=== PATIENT | female | born 1940 | race Caucasian/White ===

== ENCOUNTER 2022-01-02 13:27 | Outpatient (CLI) | payer MEDICARE, SELFPAY ==
[2022-01-02 21:36] LABS: Chloride* 100 mmol/L (96-114); Potassium* 4.7 mmol/L (3.6-5.1); Sodium* 133 mmol/L (135-149)
[2022-01-02 21:39] LABS: Carbon Dioxide* 27 mmol/L (20-32); Creatinine* 1.1 mg/dL (0.5-1.5); Estimated Glomerular Filt Rate 51 ml/min
[2022-01-02 21:40] LABS: Blood Urea Nitrogen* 18 mg/dL (7-30); Calcium* 8.9 mg/dL (8.4-10.6); Glucose* 105 mg/dL (60-115)
[2022-01-02 22:27] LABS: Vitamin B12* 374 pg/mL (243-894)
== END 2022-01-02 13:28 | disposition home or self-care (01) ==
LOC: FRMREF 13:28
PROVIDERS: PCP Physician Assistant Medical; Visit Provider Physician Assistant Medical
DX: I10 Essential (primary) hypertension (principal); D51.9 Vitamin B12 deficiency anemia, unspecified
CPT/HCPCS: 80048; 82607

== ENCOUNTER 2022-07-09 08:13 | Outpatient (CLI) | payer MEDICARE, SELFPAY | END 2022-07-09 08:14 | disposition home or self-care (01) | LOC: NFLDREF 21:38 | PROVIDERS: PCP Physician Assistant Medical; Referring Provider Physician Assistant Medical; Visit Provider Physician Assistant Medical | DX: E78.00 Pure hypercholesterolemia, unspecified (principal) | CPT/HCPCS: 80061 ==

== ENCOUNTER 2022-12-20 08:55 | Outpatient (CLI) | payer MEDICARE, SELFPAY | END 2022-12-20 08:56 | disposition home or self-care (01) | LOC: NFLDREF 12-24 15:14 | PROVIDERS: PCP Physician Assistant Medical; Referring Provider Physician Assistant Medical; Visit Provider Internal Medicine | DX: R73.03 Prediabetes (principal); D51.9 Vitamin B12 deficiency anemia, unspecified; E66.9 Obesity, unspecified; E78.5 Hyperlipidemia, unspecified; I10 Essential (primary) hypertension; E87.1 Hypo-osmolality and hyponatremia | CPT/HCPCS: 80053; 80061; 82607 ==

== ENCOUNTER 2023-11-19 07:50 | Outpatient (CLI) | payer MEDICARE, SELFPAY ==
--- OUTSIDE RECORDS SUMMARY | 2023-11-22 19:44 | XMS_ITS | Clinical Summary ---
Author Organization [facility] Address [place], [place] [address] Care Team Providers Care Marine Electrician Helper Name Role Phone Navneet Curran MD Primary Care Provider [phone] Allergies Active Allergy Reactions Criticality Noted Date Comments Adhesive Tape-Silicones Itching 08/22/2016 Uses paper tape Medications Medication Sig Dispensed Refills Start Date End Date Status lisinopril (PRINIVIL; ZESTRIL) 20 mg tablet Take 20 mg by mouth once daily. Active ASPIRIN ORAL Take 81 mg by mouth once daily. Active simvastatin (ZOCOR) 10 mg tablet Take 10 mg by mouth at bedtime. Active albuterol (PROAIR RESPICLICK) 90 mcg/actuation INHALER Inhale by mouth every 4 hours. 0 03/19/2018 Active FLUoxetine (SARAFEM) 20 mg tablet Take 1 tablet by mouth every morning. 0 03/19/2018 Active omeprazole (PRILOSEC) 40 mg Delayed-Release capsule Take 1 capsule by mouth once daily. 0 03/19/2018 Active multivitamin (MULTIPLE VITAMINS) tablet Take 1 tablet by mouth once daily. 0 03/19/2018 Active estradioL (ESTRACE) 0.1 mg/g vaginal cream 04/14/2020 Active fluticasone propion-salmeteroL (ADVAIR) 500-50 mcg/Dose diskus inhaler 04/05/2020 A ctive albuterol-ipratropium (DUONEB) (2.5-0.5 mg) in 3 mL NEBULIZATION solution 04/05/2020 Active nystatin powder (MYCOSTATIN) powder 04/05/2020 Activ e Active Problems Problem Noted Date Diagnosed Date Breast cancer in female 04/17/2020 S/P bilateral mastectomy 04/17/2020 Colitis 04/17/2020 Tubular adenoma of colon 04/17/2020 Hypercholesteremia 10/26/2012 Osteopenia of multiple sites 04/09/2012 Hypertension 03/20/2011 Personal history of colonic polyps 06/13/2010 Overview (05/02/2020): Colonoscopy 06/2010 normal repeat in 5 years Colonoscopy 04/2020 polyp, repeat in 7 years Status post cardiac surgery 04/26/2009 S/P breast lumpectomy 04/26/2009 Immunizations Name Administration Dates Next Due Influenza Virus, Unspecified 12/30/2017, 12/20/2016,12/06/2015,2014,01/31/2014,01/20/2013,03/23/2012,0 11/28/2010,12/15/2009,12/05/2008 Influenza, High-dose Inactivated 12/20/2016,11/09 Influenza, IIV3 (Age 6-35 mos) 4,01/20/2013,03/23/2012,2010,12/15/2009 Influenza, IIV3 (Age >=3 years) 01/11/2008 Influenza, IIV4 12/30/2014 Pneumococcal Poly,23-Valent (Pneumovax) 09/05/2011 Pneumococcal conj 13-Valent (Prevnar 13) 01/20/2015 Td (Age >=7 Years) 01/20/2018,01/11/2008 Tdap 01/11/2008 Zoster (Zostavax-ZVL, live) 03/27/2012 Zoster, Unspecified Formulation 03/27/2012 Family History Medical History Relation Name Comments Anesthesia Malignant Hyperthermia No Family History Anesthesia Problem No Family History Social History Tobacco Use Types Packs/Day Years Used Date Smoking Tobacco: Every Day Cigarettes 0.5 65.6 Started: [birth year]/17/1956 Smokeless Tobacco: Never Tobacco Cessation:Ready to Q uit: No; Counseling Given: Yes Alcohol Use Standard Drinks/Week Comments Not Currently 0 (1 standard drink = 0.6 oz pur e alcohol) PHQ-2 Answer Date Recorded PHQ-2 TOTAL SCORE 0 04/17/2020 Social Connections Answer Date Recorded Frequency of Communication with Friends and Fami ly Not on file 03/10/2021 Financial Resource Strain Answer Date R ecorded Difficulty of Paying Living Expenses Not on file 03/10/2021 Difficulty of Paying Living Expenses Not on file 03/10/2021 Sex and Gender Information Value Date Recorded Sex Assigned at Not on file Gender Identity Not on file Sexual Orientation Not on file Obstetrics History Last Filed Vital Signs Vital Sign Reading Time Taken Comments Blood Pressure 118/79 04/17/2020 8:37 AM PSYCH SOCIAL WORKER Pulse 99 04/17/2020 8:37 AM PSYCH SOCIAL WORKER Temperature 36.7 ??C (98 ??F) 04/17/2020 8:37 AM PSYCH SOCIAL WORKER Respiratory Rate 16 04/17/2020 8:37 AM PSYCH SOCIAL WORKER Oxygen Saturation 95% 04/17/2020 8:37 AM PSYCH SOCIAL WORKER Inhaled Oxygen Concentration - - Weight 89.6 kg (197 lb 9.6 oz) 04/17/2020 8:37 A M PSYCH SOCIAL WORKER Height 164 cm (5' 4.57) 04/17/2020 8:37 AM PSYCH SOCIAL WORKER Body Mass Index 33.32 04/17/2020 8:37 AM PSYCH SOCIAL WORKER Plan of Treatment Health Maintenance Due Date Last Done Comments RSV vaccine for adults or (1 - 1-dose 60+ series) 2002 Medicare Wellness for age 65+ 2007 Zoster (shingles) series for age 50+ (2 of 3) 05/22/2012 03/27/2012 BMI (ht and wt on same day) for age 18+ 04/17/2021 04/17/2020, 08/22/2016 Depression screening for age 12+ 04/17/2021 04/17/19 21, 04/12/2020 COVID-19 vaccine series ( season) 2023 Influenza for age 65+ 11/09/2023 12/30/2017 , 12/20/2016, 12/20/2016, Additional history exists Tetanus booster 01/21/2028 01/20/2018, 05/2007, 01/11/2008 Tdap Completed 01/11/2008 Pneumococcal series for age 65+ Completed 5, 09/05/2011 DEXA/DXA scan for age 65+ Completed 09/14/2018 Procedures Procedure Name Priority Date/Time Associated Diagnosis Comments SCAN-BONE DENSITOMETRY DEXA 09/14/2018 12:00 AM CDT from Last 3 Months or Most Recently Relevant to Health Maintenance Results * SCAN-BONE DENSITOMETRY DEXA (09/14/2018 12:00 AM CDT) Anatomical Region Laterality Modality Other Scanner OTHER from Last 3 Months or Most Recently Relevant to Health Maintenance Insurance Payer Benefit Plan / Group Subscriber ID Effective Dates Phone Address Type [employer] [id number] 2019-Present [address] [place] [address] Care Teams Marine Electrician Helper Relationship Specialty Start Date End Date Navneet Curran MD [address] [place] [id number] PCP - General Family Practice 03/19/18
== END 2023-11-19 07:51 | disposition home or self-care (01) ==
LOC: NFLDREF 11-22 19:42
PROVIDERS: PCP Internal Medicine; Referring Provider Internal Medicine; Visit Provider Internal Medicine
DX: G31.84 Mild cognitive impairment of uncertain or unknown etiology (principal); E87.1 Hypo-osmolality and hyponatremia; D51.9 Vitamin B12 deficiency anemia, unspecified; Z13.29 Encounter for screening for other suspected endocrine disorder
CPT/HCPCS: 80053; 82607; 84443

== ENCOUNTER 2023-12-01 09:19 | Outpatient (CLI) | payer MEDICARE, SELFPAY ==
--- NOTE | 2023-12-01 09:15 | CRLHL7_ITS ---
For Patients: As a result of the Century Cures Act, medical imaging exams and procedure reports are released immediately into your electronic medical record. You may view this report before your referring provider. If you have questions, please contact your health care provider. INDICATION: Mild cognitive impairment TECHNIQUE: Noncontrast Sagittal T1,Axial FSE T2, Flair, DWI images submitted. Compared to prior study from June 09, 2015 FINDINGS: Worsening qjgh-od-vyurfnaz cerebral atrophy. The ventricles, sulci and gyri are of normal size, shape and contour for age and degree of atrophy. Midline structures are centrally located. No convincing evidence of suspicious intra- or extra-axial fluid collections. Worsening mild patchy regions of increased T2 signal within the periventricular and subcortical white matter of both cerebral hemispheres. No regions of restricted diffusion. Improved right maxillary sinus mucous retention cyst or polyp. IMPRESSION: 1. No radiographic evidence of acute intracranial abnormalities. 2. Worsening waoz-iu-ybdisyav cerebral atrophy. 3. Worsening mild supratentorial white matter changes that are non-specific, but statistically most likely related to chronic small vessel ischemic disease. Dictated by Talib Diane MD @ 12/01/2023 5:13:04 PM (Electronically Signed)
--- OUTSIDE RECORDS SUMMARY | 2023-12-01 09:23 | XMS_ITS | Clinical Summary ---
Author Organization [facility] Address [place], [place] [address] Care Team Providers Care Bench Mechanic Name Role Phone Navneet Curran MD Primary Care Provider [phone] Allergies Active Allergy Reactions Criticality Noted Date [...] Comments Blood Pressure 118/79 04/17/2020 8:37 AM [employer] WORKER Pulse 99 04/17/2020 8:37 AM [employer] WORK[employer] Temperature 36.7 ??C (98 ??F) 04/17/2020 8:37 AM [employer] WORKER Respiratory Rate 16 04/17/2020 8:37 AM [employer] WORKER Oxygen Saturation 95% 04/17/2020 8:37 AM [employer] WORKER Inhaled Oxygen Concentration - - Weight 89.6 kg (197 lb 9.6 oz) 04/17/2020 8:37 A M [employer] WORK[employer] Height 164 cm (5' 4.57) 04/17/2020 8:37 AM [employer] WORK[employer] Body Mass Index 33.32 04/17/2020 8:37 AM [employer] WORKER Plan of Treatment Health Maintenance Due [...] Phone Address Type [employer] [id number] 2019-Present [address] [place] [address] Care Teams Bench Mechanic Relationship Specialty Start Date End Date Navneet Curran MD [address] [place] [id number] PCP - General Family Practice 03/19/18
== END 2023-12-01 09:20 | disposition home or self-care (01) ==
LOC: MRI 09:19
PROVIDERS: PCP Internal Medicine; Visit Provider Internal Medicine
DX: G31.84 Mild cognitive impairment of uncertain or unknown etiology (principal); G31.9 Degenerative disease of nervous system, unspecified
CPT/HCPCS: 70551

== ENCOUNTER 2023-12-23 11:16 | Inpatient (IN) | payer MEDICARE, SELFPAY ==
[2023-12-23] VITALS (23 sets, daily range): BP systolic 102–126; BP diastolic 43–93; PULSE 59–88; RESP 16–22; TEMP 36.4–37.3; O2SAT 87–94; BMI 25.5
--- NOTE | 2023-12-23 12:03 | ED_ITS ---
HPI - General Adult General Time Seen by Provider: 12:03 Date Seen: 12/23/23 Chief complaint: Weakness Stated complaint: Very weak, deteriorating fast over last 2 days Time Seen by Provider: 12/23/23 12:02 Source: patient, family, RN notes reviewed and old records reviewed Mode of arrival: wheelchair Limitations: no limitations (Patient is noted to have cognitive decline but is very responsive to questions, seems to be tracking quite well.) History of Present Illness HPI narrative: This 83yo female is brought in by family from home where she resides with her with concern of decline. She is weak and has declined eating. They note she has lost 10lbs in 6 weeks. She admits that she has no nausea or vomiting, is just not hungry. She is not experiencing any shortness of breath, no chest pain. She has COPD and continues to smoke, states that she will not quit. She may be coughing more, baseline has significant cough. No fevers noted. No diarrhea, no abdominal pain. She does have some cognitive decline and was started on Aricept on November 17 of this year. No urinary symptoms noted. Her daughter is an OB nurse here, does bring up remote history of breast cancer as well. She was weak enough that they needed a wheelchair for her today. Do feel that the last 2 days she has significantly declined. Her daughter notes she is always cold. In review of her chart, did have a normal TSH checked in November 2023. Related Data Home Medications ?Medication ?Instructions ?Recorded ?Confirmed aspirin 81 mg chewable tablet 1 tab PO DAILY 09/11/21 12/23/23 calcium 600 mg (as 1 cap PO DAILY 05/16/22 12/23/23 carbonate)-vitamin D3 10 mcg (400 unit) capsule Cogniultra 2 cap PO DAILY 11/18/23 12/23/23 clobetasol 0.05 % topical ointment 1 applic topical BID PRN 11/18/23 12/23/23 Previous Rx's ?Medication ?Instructions ?Recorded fluticasone 500 mcg-salmeterol 50 1 inh inhalation BID #60 ea 06/11/22 mcg/dose blistr powdr for inhalation nystatin 100,000 unit/gram topical 1 applic topical TID #30 grams 09/23/22 powder simvastatin 10 mg tablet 10 mg PO .Bedtime #90 tabs 03/13/23 ipratropium 0.5 mg-albuterol 3 mg 3 ml inhalation QID PRN shortness 07/28/23 (2.5 mg base)/3 mL nebulization of breath or wheezing #180 mL soln losartan 50 mg tablet 50 mg PO QDAY #90 tabs 09/26/23 omeprazole 40 mg capsule,delayed 40 mg PO DAILY #90 caps 09/26/23 release albuterol sulfate 90 mcg/actuation 2 puff inhalation Q4H PRN 10/10/23 aerosol inhaler bronchospasm #6.7 grams donepezil 5 mg tablet (Aricept) 5 mg PO QHS #90 tabs 11/18/23 Allergies Allergy/AdvReac Type Severity Reaction Status Date / Time No Known Drug Allergies Allergy Verified 12/23/23 11:48 Review of Systems Status of ROS: Reports: 6 or more systems reviewed and unremarkable except as noted in History and below [facility] Medical History History of depression ?Z86.59 - Personal history of other mental and behavioral disorders (ICD-10) History of breast cancer ?Z85.3 - Personal history of malignant neoplasm of breast (ICD-10) Surgical History History of atrial septal defect repair ?Z87.74 - Personal history of (corrected) congenital malformations of heart and circulatory system (ICD-10) 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) ?Z96.611 - Presence of right artificial shoulder joint (ICD-10) Status post bilateral mastectomy ?Z90.13 - Acquired absence of bilateral breasts and nipples (ICD-10) History of cataract removal with insertion of prosthetic lens ?Z98.49 - Cataract extraction status, unspecified eye (ICD-10) ?Z96.1 - Presence of intraocular lens (ICD-10) Family History Other Lung cancer Throat cancer Social History Narrative: cigarette smoker one half pack a day or less Smoking Status: Current some day smoker What tobacco products do you use: cigarettes Smoking packs per day: 0.25 Smoking cigarettes per day: 5.0 Do you use any of these nicotine containing products: None Second hand tobacco smoke exposure: No How often do you have a drink containing alcohol: never AUDIT-C Alcohol total score: 0 Non-prescribed substance use: denies use Little interest or pleasure in doing things: several days Feeling down, depressed, or hopeless: not at all service: No Exam Const: Vital Signs, click to edit/add: Vital Signs - 24 hr 12/23/23 11:51 12/23/23 12:42 12/23/23 12:48 Temperature 99.1 F Pulse Rate Pulse Rate [Pulse Oximeter] 88 85 Respiratory Rate 16 Blood Pressure Blood Pressure [Ri ght Upper Arm] 102/67 112/93 H Pulse Oximetry 89 88 91 Oxygen Delivery Me thod Room Air Room Air 12/23/23 12:48 12/23/23 13:00 12/23/23 13:02 Temperature Pulse Rate 79 78 86 Pulse Rate [Pulse Oximeter] Respiratory Rate 16 Blood Pressure 102/50 L Blood Pressure [Ri ght Upper Arm] Pulse Oximetry 90 87 L 89 Oxygen Delivery Me thod 12/23/23 13:03 12/23/23 13:15 12/23/23 13:30 Temperature Pulse Rate 82 75 76 Pulse Rate [Pulse Oximeter] Respiratory Rate Blood Pressure Blood Pressure [Ri ght Upper Arm] Pulse Oximetry 89 88 90 Oxygen Delivery Me thod 12/23/23 13:31 12/23/23 13:45 12/23/23 14:08 Temperature Pulse Rate 79 75 74 Pulse Rate [Pulse Oximeter] Respiratory Rate Blood Pressure 103/53 L Blood Pressure [Ri ght Upper Arm] Pulse Oximetry 90 91 92 Oxygen Delivery Me thod 12/23/23 14:11 12/23/23 14:16 12/23/23 14:30 Temperature Pulse Rate 77 74 76 Pulse Rate [Pulse Oximeter] Respiratory Rate Blood Pressure 121/43 L Blood Pressure [Ri ght Upper Arm] Pulse Oximetry 94 93 88 Oxygen Delivery Me thod 12/23/23 14:31 12/23/23 14:32 12/23/23 15:00 Temperature Pulse Rate 77 76 77 Pulse Rate [Pulse Oximeter] Respiratory Rate Blood Pressure 119/51 L Blood Pressure [Ri ght Upper Arm] Pulse Oximetry 89 89 90 Oxygen Delivery Me thod This 83-year-old female is alert, interactive, no apparent distress. She is seen exam room 2. She is wearing a stocking cap, sclera clear, conjugate gaze. Symmetrical facial function speech is normal. Do smell cigarette smoke. Neck is supple, no adenopathy. Is able to sit up, kyphosis noted, distant breath sounds, end-expiratory wheezing heard throughout no definitive crackles noted. No tachypnea. She does cough some during the interaction. Underlying heart sounds are distant, do not appreciate any murmur to the best of my ability. Normal S1-S2, no S3-S4. Abdomen is soft, nontender, nondistended, no organomegaly, no masses noted. She has no lower extremity edema. Documenting provider has reviewed patient's vital signs: yes Course Course ED Course: Will consider vast etiology for weakness, could be underlying infectious etiology developing, nursing staff appropriately collected triple viral swab. Could be such things as asymptomatic UTI causing weakness, pneumonia. She is wheezing, will give her a DuoNeb and see if that does help. Will have her on pulse oximetry, get EKG and full complement of labs. No fever at this point and thus no blood culture will be done. It is possible her weight loss and diminis hed appetite could be side effect of her Aricept. Underlying cancerous process or recurrent breast cancer is also a possibility and will be considered. Will start with a portable chest x-ray but they understand we may need to move to advanced imaging as indicated. Reevaluation(s) Time of Reevaluation #1: 13:37 Reevaluation #1: Patient is trying to drink water so she can provide us a urinalysis sample. Did review with them that her sodium has come back at 1:27 a.m., in November was 126. Michelle her daughter notes that this is reportedly where she normally runs as far as her sodium, is hyponatremic. Have discussed the chest x-ray findings and coupled with the weight loss, do think we should proceed with chest CT imaging and given weight loss, would certainly consider taking it through the abdomen and pelvis. When he would like us to do this, will order chest abdomen pelvis with IV contrast. Will give patient a 500 mL normal saline bolus over 2 hours due to the contrast and the hyponatremia. Michelle wondered about carbon monoxide poisoning. Reviewed with Michelle that her mom's carboxyhemoglobin level will be high due to smoking. They have been using a space heater. We certainly can check this just to make sure it is not dangerously high. Time of Reevaluation #2: 15:26 Reevaluation #2: Have reviewed CT findings, we reviewed the labs. They are aware that carbon monoxide is not a concern, Michelle has been able to see lab results. I do think that there is infectious etiology developing, would recommend treatment with antibiotics and will order Rocephin and oral 500 mg azithromycin. They do check her pulse oximetry at home and she is usually in the low 90s. She has been consistently running 88-89% most recently here. Will put her on 1 L nasal cannula oxygen, did have lab add on a venous blood gas and she is not retaining carbon dioxide at this point. They feel she is too weak to go home at this point, does need some low-dose oxygen, will talk to our hospitalist next. Will also institute some prednisone for her given her COPD with lower respiratory tract infection. Consultations Consultation #1: Have called the hospitalist Dr. Echavarria. He has requested to call me back. Dr. Echavarria did come down when he was 1st available, does accept the patient. Time: 15:29 Vital Signs Vital signs: Initial Vital Signs Temperature 99.1 F 12/23/23 11:51 Temperature Source Temporal Artery Scan 12/23/23 11:51 Pulse Rate 88 12/23/23 11:51 Pulse Rhythm Regular 12/23/23 11:51 Pulse Strength 3+ Normal 12/23/23 11:51 Respiratory Rate 16 12/23/23 11:51 Blood Pressure 102/67 12/23/23 11:51 Blood Pressure Mean 78 12/23/23 11:51 Blood Pressure Position Sitting 12/23/23 11:51 Pulse Oximetry 89 12/23/23 11:51 Oxygen Delivery Method Room Air 12/23/23 11:51 Vital Signs Temperature 99.1 F 12/23/23 11:51 Pulse Rate 88 12/23/23 11:51 Respiratory Rate 16 12/23/23 11:51 Blood Pressure 102/67 12/23/23 11:51 Pulse Oximetry 89 12/23/23 11:51 Oxygen Delivery Method Room Air 12/23/23 11:51 Temperature 99.1 F 12/23/23 11:51 Pulse Rate 77 12/23/23 15:00 Respiratory Rate 16 12/23/23 13:02 Blood Pressure 119/51 L 12/23/23 14:31 Pulse Oximetry 90 12/23/23 15:00 Oxygen Delivery Method Room Air 12/23/23 12:48 Medications Administered Medications: Discontinued Medications Generic Name Dose Route Start Last Admin Trade Name Freq PRN Reason Stop Dose Admin Albuterol/Ipratropium 1 neb 12/23/23 12:15 12/23/23 12:38 Iprat-Albut 0.5-2.5 Mg/3 Ml Neb IH 12/23/23 12:16 1 neb ONCE ONE Administration Azithromycin 500 mg 12/23/23 15:26 12/23/23 15:42 Azithromycin 250 Mg Tablet PO 12/23/23 15:27 500 mg ONCE ONE Administration Sodium Chloride 250 mls @ 250 mls/hr 12/23/23 13:41 12/23/23 13:45 0.9 % Sodium Chloride 250 Ml IV 12/23/23 14:40 Infused .Q1H ONE Infusion Sodium Chloride 250 mls @ 250 mls/hr 12/23/23 13:41 12/23/23 15:08 0.9 % Sodium Chloride 250 Ml IV 12/23/23 14:40 Infused .Q1H ONE Infusion Ceftriaxone Sodium 1 gm/ 100 mls @ 200 mls/hr 12/23/23 15:26 12/23/23 15:41 Sodium Chloride IVPB 12/23/23 15:27 200 mls/hr ONCE ONE Administration Prednisone 20 mg 12/23/23 15:43 12/23/23 15:53 Prednisone 20 Mg Tablet PO 12/23/23 15:44 20 mg ONCE ONE Administration Medical Decision Making Lab Data Lab results reviewed: Yes I reviewed the patient's lab results Labs: Lab Results 12/23/23 12/23/23 12/23/23 Range/Units 12:02 12:35 13:40 WBC 10.69 (4.50-11.00) K/uL RBC 3.90 L (4.00-5.20) m/uL Hgb 12.1 (12.0-16.0) gm/dL Hct 37.2 (33.0-51.0) % MCV 95 (80-100) fL MCH 31 (26-34) pg MCHC 33 (32-36) gm/dL RDW Coeff of Sander 13.0 (11.5-15.5) % Plt Count 191 (140-440) K/uL Neut % (Auto) 83.8 H (42.0-72.0) % Lymph % (Auto) 5.9 L (20-44) % Becker % (Auto) 9.7 (0.0-11.0) % Eos % (Auto) 0.1 (0.0-7.0) % Baso % (Auto) 0.2 (0.0-3.0) % Neut # (Auto) 9.00 H (1.7-7.0) K/uL Lymph # (Auto) 0.60 L (0.90-2.90) K/uL Becker # (Auto) 1.00 H (0.00-0.90) K/UL Eos # (Auto) 0.01 (0.00-0.50) K/uL Baso # (Auto) 0.02 (0.00-0.30) K/uL Abs Immat Gran (auto) 0.03 (0.00-0.30) K/uL Imm/Tot Granulo (auto) 0.3 % VBG pH 7.408 (7.32-7.43) VBG pCO2 44 (40-50) mmHG VBG pO2 < 30.1 (25-47) mmHG VBG HCO3 28 (21-28) mmol/L Carboxyhemoglobin 3.5 (0.0-5.0) % Sodium 127 L (135-149) mmol/L Potassium 4.0 (3.6-5.1) mmol/L Chloride 95 L (96-114) mmol/L Carbon Dioxide 24 (20-32) mmol/L Anion Gap 8 (7-15) mEq/L BUN 20 (7-30) mg/dL Creatinine 1.1 (0.5-1.5) mg/dL Estimated Creat Clear 37.55 Estimated GFR 50 ml/min Glucose 100 (60-115) mg/dL Lactate 0.8 (0.5-1.9) mmol/L Calcium 9.1 (8.4-10.6) mg/dL Magnesium 1.8 (1.5-2.6) mg/dL Total Bilirubin 0.9 (0.1-1.5) mg/dL Direct Bilirubin 0.3 (0.0-0.5) mg/dL AST 30 (12-35) U/L ALT 16 (4-35) U/L Alkaline Phosphatase 82 (40-150) U/L Troponin I 0.01 (0.01-0.04) ng/mL C-Reactive Protein 6.1 H (0.5-1.0) mg/dL NT-Pro-B Natriuret Pep 964 pg/mL Total Protein 7.2 (6.0-8.3) g/dL Albumin 3.6 (3.3-5.0) g/dL Procalcitonin 0.10 (<0.50) ng/mL Urine Color (Yellow) Urine Appearance (Clear) Urine pH (5.0-8.5) Ur Specific [place] (1.000-1.030) Urine Protein (Negative) Urine Glucose (UA) (Negative) Urine Ketones (Negative) Urine Blood (Negative) Urine Nitrite (Negative) Urine Bilirubin (Negative) Urine Urobilinogen (0.2-1.0) Ur Leukocyte Esterase (Negative) SARS-CoV-2 (PCR) Negative SARS-CoV-2 (Negative) Influenza Type A (PCR) Negative PCR FLU A (Negative) Influenza Type B (PCR) Negative PCR FLU B (Negative) RSV (PCR) Negative PCR RSV (Negative) Lab Acknowledgement Test Added Test Added 12/23/23 Range/Units 16:12 WBC (4.50-11.00) K/uL RBC (4.00-5.20) m/uL Hgb (12.0-16.0) gm/dL Hct (33.0-51.0) % MCV (80-100) fL MCH (26-34) pg MCHC (32-36) gm/dL RDW Coeff of Sander (11.5-15.5) % Plt Count (140-440) K/uL Neut % (Auto) (42.0-72.0) % Lymph % (Auto) (20-44) % Becker % (Auto) (0.0-11.0) % Eos % (Auto) (0.0-7.0) % Baso % (Auto) (0.0-3.0) % Neut # (Auto) (1.7-7.0) K/uL Lymph # (Auto) (0.90-2.90) K/uL Becker # (Auto) (0.00-0.90) K/UL Eos # (Auto) (0.00-0.50) K/uL Baso # (Auto) (0.00-0.30) K/uL Abs Immat Gran (auto) (0.00-0.30) K/uL Imm/Tot Granulo (auto) % VBG pH (7.32-7.43) VBG pCO2 (40-50) mmHG VBG pO2 (25-47) mmHG VBG HCO3 (21-28) mmol/L Carboxyhemoglobin (0.0-5.0) % Sodium (135-149) mmol/L Potassium (3.6-5.1) mmol/L Chloride (96-114) mmol/L Carbon Dioxide (20-32) mmol/L Anion Gap (7-15) mEq/L BUN (7-30) mg/dL Creatinine (0.5-1.5) mg/dL Estimated Creat Clear Estimated GFR ml/min Glucose (60-115) mg/dL Lactate (0.5-1.9) mmol/L Calcium (8.4-10.6) mg/dL Magnesium (1.5-2.6) mg/dL Total Bilirubin (0.1-1.5) mg/dL Direct Bilirubin (0.0-0.5) mg/dL AST (12-35) U/L ALT (4-35) U/L Alkaline Phosphatase (40-150) U/L Troponin I (0.01-0.04) ng/mL C-Reactive Protein (0.5-1.0) mg/dL NT-Pro-B Natriuret Pep pg/mL Total Protein (6.0-8.3) g/dL Albumin (3.3-5.0) g/dL Procalcitonin (<0.50) ng/mL Urine Color [place] A (Yellow) Urine Appearance Turbid A (Clear) Urine pH 6.0 (5.0-8.5) Ur Specific [place] 1.010 (1.000-1.030) Urine Protein Trace A (Negative) Urine Glucose (UA) Negative (Negative) Urine Ketones Negative (Negative) Urine Blood Negative (Negative) Urine Nitrite Negative (Negative) Urine Bilirubin Negative (Negative) Urine Urobilinogen 0.2 (0.2-1.0) Ur Leukocyte Esterase Negative (Negative) SARS-CoV-2 (PCR) (Negative) Influenza Type A (PCR) (Negative) Influenza Type B (PCR) (Negative) RSV (PCR) (Negative) Lab Acknowledgement Imaging Data Chest x-ray: Attestation: I have reviewed the pertinent imaging results. My impression: Do see probable effusion on the portable chest x-ray, compared to chest x-ray from 2020 does see that there was obliteration of that left costophrenic angle. Await Radiology over-read. Radiologist's impression: Patient: SHANEL JAIME Facility:?[facility] Patient ID:?[id number] Site Patient ID:?[id number] Site :?[id number] Study:?XRay-Chest Portable 1V-12/23/2023 12:41:28 PM Ordering Physician:Elias Francis Final Report: INDICATION: COPD with weakness and worsening cough COMPARISON: 09/13/2020 TECHNIQUE: Single frontal radiographic view(s) of the chest. FINDINGS: Blunting of the left costophrenic angle. Left lung base opacity. Mildly hyperexpanded lungs. Postoperative changes of median sternotomy. Similar p rominence of the bilateral perihilar pulmonary vasculature. Normal heart size. There is calcified aortic atherosclerosis. There are osseous degenerative changes. Partially imaged right shoulder arthroplasty. IMPRESSION: Blunting of the left costophrenic angle compatible with atelectasis and/or trace effusion. New left lung base opacity which may represent atelectasis or consolidation. Mildly hyperexpanded lungs. Similar prominence of the bilateral perihilar pulmonary vasculature. Dictated by Ad Milner MD @ 12/23/2023 12:46:54 PM (Electronic Signature) CT Chest/Ab/Pelvis: Attestation: I have reviewed the pertinent imaging results. Radiologist's impression: Patient: SHANEL JAIME Facility:?[facility] Patient ID:?[id number] Site Patient ID:?[id number]. Site :?[id number] Study:?CT-Chest/Abd/Pelvis WITH 77 CC ISOVUE 370-12/23/2023 2:22:32 PM Ordering Physician:Elias Francis Final Report: INDICATION: Weakness and weight loss TECHNIQUE: CT chest, abdomen and pelvis acquired with 77 cc Isovue 370 intravenous contrast. COMPARISON: Chest CT 10/27/2019 and abdomen and pelvis CT 01/11/2018 FINDINGS: CHEST: Cardiovascular structures: Thoracic aorta is normal in caliber with atherosclerotic calcification. No pericardial effusion. Moderate coronary atherosclerosis. Mediastinum and cee: Precarinal lymph nodes measure 10 millimeters. Right hilar lymph nodes measure 11 millimeters. Lungs and pleura: No pleural effusion or pneumothorax. Mild centrilobular emphy sema with some interlobular septal thickening in the subpleural regions possibly minimal fibrosis. Minimal peripheral ground-glass opacities with very slight centrilobular nodularity within both lungs. Endobronchial soft tissue within the left lower lobe with partial atelectasis and consolidation within the left lower lobe. Chest wall and axilla: No mass or adenopathy. Bones: Status post right shoulder replacement. ABDOMEN AND PELVIS: Liver: Diffusely decreased density of the liver without focal intrahepatic lesion. Gallbladder and bile ducts: Unremarkable. Pancreas: Unremarkable. Spleen: Unremarkable. Adrenal glands: Minimal nodularity of the lateral limb of the left adrenal gland measuring 6 millimeters. Kidneys: Symmetric renal enhancement without hydronephrosis. Calcifications within the kidneys which appear to be mostly vascular although there is a 2 millimeter calcification in the right kidney suggesting a nonobstructing stone. Bilateral renal cysts. GI tract: The stomach is decompressed. No dilated loops of small intestine. Vascular structures: Atherosclerosis without abdominal aortic aneurysm. Miscellaneous: Fat containing epigastric ventral hernia. Right inguinal hernia with colon extending into the hernia sac without evidence of obstruction. Pelvic Organs: Unremarkable. Bones: Degenerative disc disease lumbar spine. IMPRESSION: 1. Mild ground-glass opacities with minimal centrilobular nodularity suspicious for an infectious bronchiolitis or viral pneumonia. Additional endobronchial soft tissue density in the left lower lobe with partial atelectasis and consolidation left lower lobe. This can represent endobronchial debris in the setting of a left lower lobe pneumonia with partial atelectasis; differential includes aspiration. However, follow-up chest CT suggested in 1-2 months after treatment to ensure clearance of the bronchi and exclude an endobronchial lesion. 2. Fat containing epigastric ventral hernia and right inguinal hernia with colon in the hernia sac without evidence of obstruction. 3. Other incidental findings as detailed above. Please note that all CT scans at this facility use dose modulation, iterative reconstruction, and/or weight-based dosing when appropriate to reduce radiation dose to as low as reasonably achievable. Dictated by Joey San MD @ 12/23/2023 2:41:35 PM (Electronic Signature) ECG Data Attestation: I personally reviewed and interpreted this ECG as follows: (Normal sinus rhythm, 75 beats per minute. Incomplete right bundle branch block. No active ischemia or infarct.) Prior ECG tracings: not available for review Discharge Plan Discharge Clinical Impression: Weakness, Hypoxia COPD (chronic obstructive pulmonary disease) Qualifiers: COPD type: COPD with acute lower respiratory infection Qualified Code(s): J44.0 - Chronic obstructive pulmonary disease with (acute) lower respiratory infection Community acquired pneumonia Qualifiers: Laterality: unspecified laterality Qualified Code(s): J18.9 - Pneumonia, unspecified organism Patient Disposition: Admitted As Observation
--- NOTE | 2023-12-23 12:09 | CRLHL7_ITS ---
For Patients: As a result of the Century Cures Act, medical imaging exams and procedure reports are released immediately into your electronic medical record. You may view this report before your referring provider. If you have questions, please contact your health care provider. INDICATION: COPD with weakness and worsening cough COMPARISON: 09/13/2020 TECHNIQUE: Single frontal radiographic view(s) of the chest. FINDINGS: Blunting of the left costophrenic angle. Left lung base opacity. Mildly hyperexpanded lungs. Postoperative changes of median sternotomy. Similar prominence of the bilateral perihilar pulmonary vasculature. Normal heart size. There is calcified aortic atherosclerosis. There are osseous degenerative changes. Partially imaged right shoulder arthroplasty. IMPRESSION: Blunting of the left costophrenic angle compatible with atelectasis and/or trace effusion. New left lung base opacity which may represent atelectasis or consolidation. Mildly hyperexpanded lungs. Similar prominence of the bilateral perihilar pulmonary vasculature. Dictated by Ad Milner MD @ 12/23/2023 12:46:54 PM (Electronically Signed)
--- OUTSIDE RECORDS SUMMARY | 2023-12-23 12:15 | XMS_ITS | Clinical Summary ---
Author Organization [facility] Address [place], [place] [address] Care Team Providers Care Pickling Solution Maker Name Role Phone Navneet Curran MD Primary Care Provider [phone] Allergies Active Allergy Reactions Criticality Noted Date [...] Date Smoking Tobacco: Every Day Cigarettes 0.5 65.7 Started: 04/17/1956 Smokeless Tobacco: Never Tobacco Cessation:Ready [...] Comments Blood Pressure 118/79 04/17/2020 8:37 AM [employer] [employer] Pulse 99 04/17/2020 8:37 AM [employer] Temperature 36.7 ??C (98 ??F) 04/17/2020 8:37 AM [employer] Respiratory Rate 16 04/17/2020 8:37 AM [employer] [employer] Oxygen Saturation 95% 04/17/2020 8:37 AM [employer] Inhaled Oxygen Concentration - - Weight 89.6 kg (197 lb 9.6 oz) 04/17/2020 8:37 A M [employer] Height 164 cm (5' 4.57) 04/17/2020 8:37 AM [employer] Body Mass Index 33.32 04/17/2020 8:37 AM [employer] [employer] Plan of Treatment Health Maintenance Due Date Last Done Comments Medicare Wellness for age 65+ 2007 Zoster (shingles) series for age 50+ (2 of 3) 05/22/2012 03/27/2012 RSV vaccine for adults or (1 - 1-dose 75+ series) 2017 BMI (ht and wt on same day) [...] Phone Address Type [employer] [id number] 2019-Present [address] [place] [address] Care Teams Pickling Solution Maker Relationship Specialty Start Date End Date Navneet Curran MD [address] [place] [id number] PCP - General Family Practice 03/19/18
[2023-12-23] MEDS: IPRAT-ALBUT 0.5-2.5 MG/3 ML NEB 1 NEB IH ×2 (12:38→19:41)
[2023-12-23 12:39] LABS: Lactate* 0.8 mmol/L (0.5-1.9)
[2023-12-23 12:43] LABS: Basophils Absolute Auto 0.02 K/uL (0.00-0.30); Basophils Percent Auto 0.2 % (0.0-3.0); Eosinophils Absolute Auto 0.01 K/uL (0.00-0.50); Eosinophils Percent Auto 0.1 % (0.0-7.0); Hematocrit 37.2 % (33.0-51.0); Hemoglobin* 12.1 gm/dL (12.0-16.0); Immature Granulocytes Abs Auto 0.03 K/uL (0.00-0.30); Immature Granulocytes Pct Auto 0.3 %; Lymphocytes Percent Auto 5.9 % (20-44); Mean Corpuscular HGB Conc 33 gm/dL (32-36); Mean Corpuscular Hemoglobin 31 pg (26-34); Mean Corpuscular Volume 95 fL (80-100); Monocytes Percent Auto 9.7 % (0.0-11.0); Neutrophils Percent Auto 83.8 % (42.0-72.0); Platelet Count* 191 K/uL (140-440); White Blood Count* 10.69 K/uL (4.50-11.00)
[2023-12-23 12:44] LABS: PCR FLU A Negative PCR FLU A (Negative); PCR FLU B Negative PCR FLU B (Negative); PCR RSV Negative PCR RSV (Negative); SARS PCR* Negative SARS-CoV-2 (Negative)
[2023-12-23 12:46] LABS: Slide Review Reflex No
[2023-12-23 13:03] LABS: Albumin* 3.6 g/dL (3.3-5.0); Chloride* 95 mmol/L (96-114)
[2023-12-23 13:04] LABS: Sodium* 127 mmol/L (135-149)
[2023-12-23 13:06] LABS: Creatinine* 1.1 mg/dL (0.5-1.5); Est. Creatinine Clearance* 37.55; Estimated Glomerular Filt Rate 50 ml/min
[2023-12-23 13:07] LABS: Alanine Aminotransferase* 16 U/L (4-35); Alkaline Phosphatase* 82 U/L (40-150); Anion Gap 8 mEq/L (7-15); Aspartate Amino Transferase* 30 U/L (12-35); Bilirubin Direct* 0.3 mg/dL (0.0-0.5); Bilirubin Total* 0.9 mg/dL (0.1-1.5); Blood Urea Nitrogen* 20 mg/dL (7-30); Calcium* 9.1 mg/dL (8.4-10.6); Carbon Dioxide* 24 mmol/L (20-32); Glucose* 100 mg/dL (60-115); Magnesium* 1.8 mg/dL (1.5-2.6); Total Protein* 7.2 g/dL (6.0-8.3)
[2023-12-23 13:10] LABS: C Reactive Protein* 6.1 mg/dL (0.5-1.0)
[2023-12-23 13:19] LABS: Troponin I* 0.01 ng/mL (0.01-0.04)
[2023-12-23 13:26] LABS: NT Pro B Type NatriureticPept* 964 pg/mL
--- NOTE | 2023-12-23 13:41 | CRLHL7_ITS ---
For Patients: As a result of the Century Cures Act, medical imaging exams and procedure reports are released immediately into your electronic medical record. You may view this report before your referring provider. If you have questions, please contact your health care provider. INDICATION: Weakness and weight loss TECHNIQUE: CT chest, abdomen and pelvis acquired with 77 cc Isovue 370 intravenous contrast. COMPARISON: Chest CT 10/27/2019 and abdomen and pelvis CT 01/11/2018 FINDINGS: CHEST: Cardiovascular structures: Thoracic aorta is normal in caliber with atherosclerotic calcification. No pericardial effusion. Moderate coronary atherosclerosis. Mediastinum and cee: Precarinal lymph nodes measure 10 millimeters. Right hilar lymph nodes measure 11 millimeters. Lungs and pleura: No pleural effusion or pneumothorax. Mild centrilobular emphysema with some interlobular septal thickening in the subpleural regions possibly minimal fibrosis. Minimal peripheral ground-glass opacities with very slight centrilobular nodularity within both lungs. Endobronchial soft tissue within the left lower lobe with partial atelectasis and consolidation within the left lower lobe. Chest wall and axilla: No mass or adenopathy. Bones: Status post right shoulder replacement. ABDOMEN AND PELVIS: Liver: Diffusely decreased density of the liver without focal intrahepatic lesion. Gallbladder and bile ducts: Unremarkable. Pancreas: Unremarkable. Spleen: Unremarkable. Adrenal glands: Minimal nodularity of the lateral limb of the left adrenal gland measuring 6 millimeters. Kidneys: Symmetric renal enhancement without hydronephrosis. Calcifications within the kidneys which appear to be mostly vascular although there is a 2 millimeter calcification in the right kidney suggesting a nonobstructing stone. Bilateral renal cysts. GI tract: The stomach is decompressed. No dilated loops of small intestine. Vascular structures: Atherosclerosis without abdominal aortic aneurysm. Miscellaneous: Fat containing epigastric ventral hernia. Right inguinal hernia with colon extending into the hernia sac without evidence of obstruction. Pelvic Organs: Unremarkable. Bones: Degenerative disc disease lumbar spine. IMPRESSION: 1. Mild ground-glass opacities with minimal centrilobular nodularity suspicious for an infectious bronchiolitis or viral pneumonia. Additional endobronchial soft tissue density in the left lower lobe with partial atelectasis and consolidation left lower lobe. This can represent endobronchial debris in the setting of a left lower lobe pneumonia with partial atelectasis; differential includes aspiration. However, follow-up chest CT suggested in 1-2 months after treatment to ensure clearance of the bronchi and exclude an endobronchial lesion. 2. Fat containing epigastric ventral hernia and right inguinal hernia with colon in the hernia sac without evidence of obstruction. 3. Other incidental findings as detailed above. Please note that all CT scans at this facility use dose modulation, iterative reconstruction, and/or weight-based dosing when appropriate to reduce radiation dose to as low as reasonably achievable. Dictated by Joey San MD @ 12/23/2023 2:41:35 PM (Electronically Signed)
[2023-12-23] MEDS: 0.9 % SODIUM CHLORIDE 250 ml 250 ML IV ×2 (13:45)
[2023-12-23 13:50] LABS: Carboxyhemoglobin* 3.5 % (0.0-5.0)
[2023-12-23 15:09] LABS: HCO3 VBG 28 mmol/L (21-28); PCO2 VBG 44 mmHG (40-50); PO2 VBG < 30.1 mmHG (25-47); pH VBG 7.408 (7.32-7.43)
[2023-12-23] MEDS: cefTRIAXone 1 GM in 0.9 % SODIUM CHLORIDE Mini-bag 100 ML IVPB (15:41)
[2023-12-23] MEDS: AZITHROMYCIN 250 MG TABLET 500 MG PO (15:42)
[2023-12-23] MEDS: predniSONE 20 MG TABLET PO (15:53)
[2023-12-23 16:23] LABS: Appearance Urine Turbid (Clear); Bilirubin Urine Negative (Negative); Color Urine Orange (Yellow); Glucose Urine Negative (Negative); Ketones Urine Negative (Negative)
[2023-12-23 16:24] LABS: Blood Urine Negative (Negative); Leukocyte Esterase Urine Negative (Negative); Nitrite Urine Negative (Negative); Protein Urine Trace (Negative); Urobilinogen Urine 0.2 (0.2-1.0)
[2023-12-23 16:36] LABS: Fine Granular Casts Urine Few; Squamous Epithelial Cell Urine Few (None-Few)
[2023-12-23] MEDS: predniSONE 10 MG TABLET 20 MG PO (18:18)
--- NOTE | 2023-12-23 19:31 | PM.IMHP1 ---
Hospitalist- H&P: HPI History of Present Illness Date Seen: 12/23/23 Chief complaint: Very weak, deteriorating fast over last 2 days Narrative: Mia Miles is a 83 year old female with COPD and dementia admitted through the emergency department with acute on chronic dyspnea and weakness. Over the past few weeks the patient has had some decline in her overall health status. She has been losing weight in eating poorly she has been getting weaker. This was a very gradual process until the last 1-2 days when she has acutely gotten profoundly weak and dyspneic. She has known COPD and continues to smoke. She is not on home oxygen and O2 sats are typically in the low 90s at home. In the last day or 2 she has been more hypoxic. She has lost 9 lb in the last 5 weeks. Reports no abdominal pain nausea or vomiting. She has had some loose stools in the last couple days She reports just having no appetite. She has a chronic nonproductive cough. No chest pain. 1 month ago she was evaluated in clinic for memory loss. She was started on Aricept. MRI of the brain was obtained showing worsening cerebral atrophy and small-vessel ischemic changes. This was compared to 2016. Review of Systems Narrative: She has had decline over the last several weeks in her appetite, strength and energy. In the last 2 days acutely worse with dyspnea and profound weakness. 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 cigarette smoker one half pack a day or less Code status is DNR DNI. Daughters are healthcare power of document review attorney What is your current living situation?: I presently have a place to live Problems where you live: no known problems Problems where you live details: N/A In the past 12 months, utilities in danger of being shut off: no In past 12 months, lack of transportation kept you from medical appts, meetings, work, or getting things needed for daily living: no In the past 12 mos, have been you worried that your food would run out before you had money to buy more?: never true In the past 12 mos, the food you bought just didn't last and you didn't have money to buy more?: never true Highest level of school completed/degree received: GED or equivalent Smoking Status: Current some day smoker What tobacco products do you use: cigarettes Smoking packs per day: 0.25 Smoking cigarettes per day: 5.0 Do you use any of these nicotine containing products: None Second hand tobacco smoke exposure: Yes How often do you have a drink containing alcohol: never AUDIT-C Alcohol total score: 0 Non-prescribed substance use: denies use Caffeine: Yes (4 cups coffee daily and one soda) How often does anyone, including family, friends and others, physically hurt you: never How often does anyone, including family, friends and others, insult or talk down to you: never How often does anyone, including family, friends and others, threaten you with harm: never How often does anyone, including family, friends and others, scream or curse at you: never Little interest or pleasure in doing things: several days Feeling down, depressed, or hopeless: not at all service: No Meds Home Medications and Allergies Home Medications ?Medication ?Instructions ?Recorded ?Confirmed ?Type aspirin 81 mg chewable tablet 1 tab PO DAILY 09/11/21 12/23/23 History calcium 600 mg (as 1 cap PO DAILY 05/16/22 12/23/23 History carbonate)-vitamin D3 10 mcg (400 unit) capsule Cogniultra 2 cap PO DAILY 11/18/23 12/23/23 History ipratropium 0.5 mg-albuterol 3 mg 3 ml inhalation QID shortness of 12/23/23 12/23/23 History (2.5 mg base)/3 mL nebulization breath or wheezing soln nystatin 100,000 unit/gram topical 1 applic topical TID PRN 12/23/23 12/23/23 History powder Allergies Allergy/AdvReac Type Severity Reaction Status Date / Time No Known Drug Allergies Allergy Verified 12/23/23 11:48 Exam Narrative: Exam Narrative: She is alert and appears to be breathing fairly comfortably with supplemental oxygen. She is oriented to her circumstances but unable to explain much about her medical history or anything about her medications. Head is without trauma. Eyes normal. Oropharynx with dry mucous membranes. Neck is supple without mass or adenopathy. Respirations with diminished breath sounds throughout. Occasional basilar wheezing and basilar crackles noted bilaterally. No consolidation. Cardiovascular: S1, S2, regular rate and rhythm. Abdomen: Bowel sounds active. Abdomen is soft without tenderness or mass. Extremities without significant edema. She has diminished but intact pedal pulses. Const: Vital Signs, click to edit/add: Vital Signs - 24 hr 12/23/23 11:51 12/23/23 12:42 12/23/23 12:48 Temperature 99.1 F Pulse Rate Pulse Rate [Pulse Oximeter] 88 85 Respiratory Rate 16 Blood Pressure Blood Pressure [Le ft Arm] Blood Pressure [Ri ght Upper Arm] 102/67 112/93 H Pulse Oximetry 89 88 91 Oxygen Delivery Me thod Room Air Room Air Oxygen Flow Rate 12/23/23 12:48 12/23/23 13:00 12/23/23 13:02 Temperature Pulse Rate 79 78 86 Pulse Rate [Pulse Oximeter] Respiratory Rate 16 Blood Pressure 102/50 L Blood Pressure [Le ft Arm] Blood Pressure [Ri ght Upper Arm] Pulse Oximetry 90 87 L 89 Oxygen Delivery Me thod Oxygen Flow Rate 12/23/23 13:03 12/23/23 13:15 12/23/23 13:30 Temperature Pulse Rate 82 75 76 Pulse Rate [Pulse Oximeter] Respiratory Rate Blood Pressure Blood Pressure [Le ft Arm] Blood Pressure [Ri ght Upper Arm] Pulse Oximetry 89 88 90 Oxygen Delivery Me thod Oxygen Flow Rate 12/23/23 13:31 12/23/23 13:45 12/23/23 14:08 Temperature Pulse Rate 79 75 74 Pulse Rate [Pulse Oximeter] Respiratory Rate Blood Pressure 103/53 L Blood Pressure [Le ft Arm] Blood Pressure [Ri ght Upper Arm] Pulse Oximetry 90 91 92 Oxygen Delivery Me thod Oxygen Flow Rate 12/23/23 14:11 12/23/23 14:16 12/23/23 14:30 Temperature Pulse Rate 77 74 76 Pulse Rate [Pulse Oximeter] Respiratory Rate Blood Pressure 121/43 L Blood Pressure [Le ft Arm] Blood Pressure [Ri ght Upper Arm] Pulse Oximetry 94 93 88 Oxygen Delivery Me thod Oxygen Flow Rate 12/23/23 14:31 12/23/23 14:32 12/23/23 15:00 Temperature Pulse Rate 77 76 77 Pulse Rate [Pulse Oximeter] Respiratory Rate Blood Pressure 119/51 L Blood Pressure [Le ft Arm] Blood Pressure [Ri ght Upper Arm] Pulse Oximetry 89 89 90 Oxygen Delivery Me thod Oxygen Flow Rate 12/23/23 15:26 12/23/23 17:19 12/23/23 18:22 Temperature 98 F Pulse Rate Pulse Rate [Pulse Oximeter] 68 Respiratory Rate 20 22 Blood Pressure Blood Pressure [Le ft Arm] 126/59 L Blood Pressure [Ri ght Upper Arm] Pulse Oximetry 91 93 89 Oxygen Delivery Me thod Nasal Cannula Nasal Cannula Nasal Cannula Oxygen Flow Rate 1 1 1.5 Documenting provider has reviewed patient's vital signs: yes Hospitalist - H&P: Result Labs Labs: Short CBC 12/23/23 Range/Units 12:35 WBC 10.69 (4.50-11.00) K/uL Hgb 12.1 (12.0-16.0) gm/dL Hct 37.2 (33.0-51.0) % Plt Count 191 (140-440) K/uL BMP 12/23/23 12:35 Sodium 127 L Potassium 4.0 Chloride 95 L Carbon Dioxide 24 BUN 20 Creatinine 1.1 Glucose 100 Calcium 9.1 Cardiac Enzymes 12/23/23 Range/Units 12:35 Troponin I 0.01 (0.01-0.04) ng/mL Liver Function 12/23/23 Range/Units 12:35 Total Bilirubin 0.9 (0.1-1.5) mg/dL Direct Bilirubin 0.3 (0.0-0.5) mg/dL AST 30 (12-35) U/L ALT 16 (4-35) U/L Alkaline Phosphatase 82 (40-150) U/L Albumin 3.6 (3.3-5.0) g/dL Urine 12/23/23 Range/Units 16:12 Urine Color [place] A (Yellow) Urine Appearance Turbid A (Clear) Urine pH 6.0 (5.0-8.5) Ur Specific [place] 1.010 (1.000-1.030) Urine Protein Trace A (Negative) Urine Glucose (UA) Negative (Negative) Imaging CT Chest/Ab/Pelvis: Radiologist's impression: INDICATION: Weakness and weight loss TECHNIQUE: CT chest, abdomen and pelvis acquired with 77 cc Isovue 370 intravenous contrast. COMPARISON: Chest CT 10/27/2019 and abdomen and pelvis CT 01/11/2018 FINDINGS: CHEST: Cardiovascular structures: Thoracic aorta is normal in caliber with atherosclerotic calcification. No pericardial effusion. Moderate coronary atherosclerosis. Mediastinum and cee: Precarinal lymph nodes measure 10 millimeters. Right hilar lymph nodes measure 11 millimeters. Lungs and pleura: No pleural effusion or pneumothorax. Mild centrilobular emphysema with some interlobular septal thickening in the subpleural regions possibly minimal fibrosis. Minimal peripheral ground-glass opacities with very slight centrilobular nodularity within both lungs. Endobronchial soft tissue within the left lower lobe with partial atelectasis and consolidation within the left lower lobe. Chest wall and axilla: No mass or adenopathy. Bones: Status post right shoulder replacement. ABDOMEN AND PELVIS: Liver: Diffusely decreased density of the liver without focal intrahepatic lesion. Gallbladder and bile ducts: Unremarkable. Pancreas: Unremarkable. Spleen: Unremarkable. Adrenal glands: Minimal nodularity of the lateral limb of the left adrenal gland measuring 6 millimeters. Kidneys: Symmetric renal enhancement without hydronephrosis. Calcifications within the kidneys which appear to be mostly vascular although there is a 2 millimeter calcification in the right kidney suggesting a nonobstructing stone. Bilateral renal cysts. GI tract: The stomach is decompressed. No dilated loops of small intestine. Vascular structures: Atherosclerosis without abdominal aortic aneurysm. Miscellaneous: Fat containing epigastric ventral hernia. Right inguinal hernia with colon extending into the hernia sac without evidence of obstruction. Pelvic Organs: Unremarkable. Bones: Degenerative disc disease lumbar spine. IMPRESSION: 1. Mild ground-glass opacities with minimal centrilobular nodularity suspicious for an infectious bronchiolitis or viral pneumonia. Additional endobronchial soft tissue density in the left lower lobe with partial atelectasis and consolidation left lower lobe. This can represent endobronchial debris in the setting of a left lower lobe pneumonia with partial atelectasis; differential includes aspiration. However, follow-up chest CT suggested in 1-2 months after treatment to ensure clearance of the bronchi and exclude an endobronchial lesion. 2. Fat containing epigastric ventral hernia and right inguinal hernia with colon in the hernia sac without evidence of obstruction. 3. Other incidental findings as detailed above. Assessment and Plan Assessment and plan (1) Community acquired pneumonia: Problem comment: Clinically this appears to be the cause of her acute weakness and acute hypoxia. Status: Acute (2) Hypoxia: Problem comment: Hypoxic respiratory failure primarily due to pneumonia Status: Acute (3) COPD (chronic obstructive pulmonary disease): Problem comment: COPD is contributing to her hypoxic respiratory failure but probably not the primary cause. Continue nebulizers and prednisone. Status: Acute (4) Weakness: Problem comment: Chronic weakness due to weight loss, deconditioning. Acute weakness due to pneumonia Status: Acute (5) Mild cognitive impairment: Problem comment: Aricept started 12/01. Due to poor appetite and weight loss will stop Aricept for now. Status: Acute (6) Chronic hyponatremia: Problem comment: Stop losartan. Monitor. May be due to chronic lung disease Status: Acute (7) Essential hypertension: Problem comment: On losartan. Blood pressure is now low normal range so will stop losartan Status: Acute (8) Weight loss: Problem comment: Her 9 lb weight loss in the last 5 weeks is concerning. Cause for this is uncertain. Status: Acute Plan She is admitted the hospital for management of hypoxic respiratory failure due to pneumonia. IV antibiotics as well as nebulizers and steroids for her acute illness. PT OT to evaluate her weakness and immobility. Nutrition consult regarding weight loss. Total Time Spent Total Time Spent: Total time spent today is 85 minutes in coordination of care discussing with patient and family ongoing evaluation management of pneumonia COPD and weight loss
[2023-12-23] MEDS: 0.9 % SODIUM CHLORIDE 1000 ml 1,000 ML 75 ML IV (19:45)
[2023-12-23] MEDS: SODIUM CHLORIDE 0.9 % (FLUSH) 10 ML SYRINGE 5 ML IVF (19:48)
[2023-12-23] MEDS: SIMVASTATIN 10 MG TABLET PO (21:07)
[2023-12-23] MEDS: ENOXAPARIN 40 MG/0.4 ML INJ SUBCUT (21:07)
[2023-12-24] VITALS (9 sets, daily range): BP systolic 87–120; BP diastolic 44–98; PULSE 56–80; RESP 20–22; TEMP 36.4–36.8; O2SAT 90–94; BMI 25.8
[2023-12-24] MEDS: IPRAT-ALBUT 0.5-2.5 MG/3 ML NEB 1 NEB IH ×4 (01:49→19:51)
[2023-12-24 06:21] LABS: HCO3 VBG 23 mmol/L (21-28); PCO2 VBG 37 mmHG (40-50); PO2 VBG 47.7 mmHG (25-47); pH VBG 7.408 (7.32-7.43)
[2023-12-24 06:26] LABS: Hematocrit 33.3 % (33.0-51.0); Hemoglobin* 10.9 gm/dL (12.0-16.0); Immature Granulocytes Abs Auto 0.04 K/uL (0.00-0.30); Immature Granulocytes Pct Auto 0.5 %; Lymphocytes Percent Auto 6.6 % (20-44); Mean Corpuscular HGB Conc 33 gm/dL (32-36); Mean Corpuscular Hemoglobin 31 pg (26-34); Mean Corpuscular Volume 94 fL (80-100); Monocytes Percent Auto 4.5 % (0.0-11.0); Neutrophils Percent Auto 88.4 % (42.0-72.0); Platelet Count* 177 K/uL (140-440); RDW Coefficient of Variation % 13.1 % (11.5-15.5); Red Blood Count 3.53 m/uL (4.00-5.20)
[2023-12-24 06:29] LABS: Slide Review Reflex No
[2023-12-24] MEDS: OMEPRAZOLE 20 MG CAPSULE DR 40 MG PO (06:29)
[2023-12-24 06:46] LABS: Chloride* 99 mmol/L (96-114); Sodium* 128 mmol/L (135-149)
[2023-12-24 06:49] LABS: Creatinine* 0.8 mg/dL (0.5-1.5); Estimated Glomerular Filt Rate 74 ml/min
[2023-12-24 06:50] LABS: Anion Gap 8 mEq/L (7-15); Blood Urea Nitrogen* 17 mg/dL (7-30); Calcium* 8.4 mg/dL (8.4-10.6); Carbon Dioxide* 21 mmol/L (20-32); Glucose* 116 mg/dL (60-115)
[2023-12-24 06:52] LABS: C Reactive Protein* 5.5 mg/dL (0.5-1.0)
--- NOTE | 2023-12-24 07:40 | PC.NURSE ---
End of shift note [id number]: Pt alert & oriented x 4. Pt has been on 1.5-2 LPM oxygen via NC throughout the shift to maintain sats >90% per order in place. Staff have been encouraging po intake though pt noted to have poor po intake. Neb treatments administered per orders. Pt has been afebrile throughout the shift. She was noted to have inspiratory wheezing and fine crackles with moist coarse intermittent cough noted. Bed/chair alarm on for safety and call light within reach. Pt on tele with NSR with rare PVC noted. IV to L AC patent most of shift though started leaking just before 0630. IV was then removed. Wort Extractor and chargemaster specialist attempted three new IV starts with no success. product blending supervisor updated and new IV placed by home housekeeper. Pt has restricted extremity to R arm. Pt continent of bladder using bedside commode and transferred well with SBA using gait belt.
[2023-12-24] MEDS: ASPIRIN 81 MG TAB.CHEW PO (08:51)
[2023-12-24] MEDS: predniSONE 20 MG TABLET 40 MG PO (08:52)
[2023-12-24] MEDS: AZITHROMYCIN 250 MG TABLET PO (08:52)
[2023-12-24] MEDS: cefTRIAXone 1 GM in 0.9 % SODIUM CHLORIDE Mini-bag 100 ML IVPB (08:53)
[2023-12-24] MEDS: 0.9 % SODIUM CHLORIDE 500 ML 500 ML IV (12:40)
--- NOTE | 2023-12-24 13:14 | PM.IMPN1 ---
Progress Note: A&P Assessment and plan (1) Community acquired pneumonia: Problem details: - Clinically this appears to be the cause of her acute weakness and acute hypoxia. - IV ceftriaxone and oral azithromycin Status: Acute (2) Hypoxia: Problem details: - Hypoxic respiratory failure primarily due to pneumonia - continues to require oxygen supplementation at 2 liters/minute via nasal cannula - underlying COPD with history of smoking Status: Acute (3) COPD (chronic obstructive pulmonary disease): Problem details: - COPD is contributing to her hypoxic respiratory failure but probably not the primary cause. Continue nebulizers and prednisone. - continue with current treatment intervention efforts Status: Acute (4) Weakness: Problem details: - Chronic weakness due to weight loss, deconditioning. Acute weakness due to pneumonia - PT and OT to consult and assist with assessment and recommendations Status: Acute (5) Mild cognitive impairment: Problem details: - Aricept started 12/01. Due to poor appetite and weight loss will stop Aricept for now. - longstanding progression of cognitive impairment and functional decline suggest underlying Alzheimer's type dementia verses vascular dementia Status: Acute (6) Chronic hyponatremia: Problem details: - Stop losartan. Monitor. May be due to chronic lung disease plus oral hydration efforts Status: Acute (7) Essential hypertension: Problem details: - On losartan. Blood pressure is now low normal range so will stop losartan Status: Acute (8) Weight loss: Problem details: - Her 9 lb weight loss in the last 5 weeks is concerning. Cause for this is uncertain. Status: Acute Plan 1. Reviewed impression with patient and daughters 2. Reviewed recommendations with patient and daughters 3. Answered their questions 4. Continue with supportive efforts 5. They are agreeable with above stated plans and recommendations Time Spent With Patient Total time spent: 45 minutes Subjective Date Seen: 12/24/23 Interval history: Hospital day 2. History of present illness on admission: ?Mia Miles is a 83 year old female with COPD and dementia admitted through the emergency department with acute on chronic dyspnea and weakness. Over the past few weeks the patient has had some decline in her overall health status. She has been losing weight in eating poorly she has been getting weaker. This was a very gradual process until the last 1-2 days when she has acutely gotten profoundly weak and dyspneic. She has known COPD and continues to smoke. She is not on home oxygen and O2 sats are typically in the low 90s at home. In the last day or 2 she has been more hypoxic. She has lost 9 lb in the last 5 weeks. Reports no abdominal pain nausea or vomiting. She has had some loose stools in the last couple days She reports just having no appetite. She has a chronic nonproductive cough. No chest pain. ?1 month ago she was evaluated in clinic for memory loss. She was started on Aricept. MRI of the brain was obtained showing worsening cerebral atrophy and small-vessel ischemic changes. This was compared to 2016. Patient states she feels better today. Not as weak. Still weaker than usual. Still requiring oxygen support to maintain resting room air oxygen saturations 88% or higher. Does not ordinarily utilizes oxygen at home. Denies dyspnea at rest. Acknowledges dyspnea with exertion. Chronic cough. No chest heaviness, pressure, tightness, or pain. Denies lightheadedness. Denies syncope. Acknowledges trying to drink a lot of fluids to maintain her hydration. Denies blood loss. Confers a lot with her daughters when I speak with her and ask her questions. Exam Narrative: Exam Narrative: I examine her in her hospital room. Appears comfortable sitting at bedside in recliner chair. Vision and hearing are adequate. Alert and oriented to self, place, not so much to time or situation. She is not sure exactly why she is here. This is not necessarily new. Bibasilar rales. Scattered rhonchi. No wheezing. No CVA tenderness to thumping. Regular heart rhythm. Normal S1-S2. Soft systolic murmur. PMI not laterally displaced. Abdomen with active bowel sounds, soft, nontender. No edema. No focal motor neurologic deficits. Const: Vital Signs, click to edit/add: Vital Signs - 24 hr 12/23/23 13:15 12/23/23 13:30 12/23/23 13:31 Temperature Pulse Rate 75 76 79 Pulse Rate [Pulse Oximeter] Respiratory Rate Blood Pressure 103/53 L Blood Pressure [Le ft Arm] Pulse Oximetry 88 90 90 Oxygen Delivery Me thod Oxygen Flow Rate 12/23/23 13:45 12/23/23 14:08 12/23/23 14:11 Temperature Pulse Rate 75 74 77 Pulse Rate [Pulse Oximeter] Respiratory Rate Blood Pressure 121/43 L Blood Pressure [Le ft Arm] Pulse Oximetry 91 92 94 Oxygen Delivery Me thod Oxygen Flow Rate 12/23/23 14:16 12/23/23 14:30 12/23/23 14:31 Temperature Pulse Rate 74 76 77 Pulse Rate [Pulse Oximeter] Respiratory Rate Blood Pressure 119/51 L Blood Pressure [Le ft Arm] Pulse Oximetry 93 88 89 Oxygen Delivery Me thod Oxygen Flow Rate 12/23/23 14:32 12/23/23 15:00 12/23/23 15:26 Temperature Pulse Rate 76 77 Pulse Rate [Pulse Oximeter] Respiratory Rate Blood Pressure Blood Pressure [Le ft Arm] Pulse Oximetry 89 90 91 Oxygen Delivery Me thod Nasal Cannula Oxygen Flow Rate 1 12/23/23 17:19 12/23/23 18:00 12/23/23 18:22 Temperature 98 F Pulse Rate Pulse Rate [Pulse Oximeter] 68 Respiratory Rate 20 22 22 Blood Pressure Blood Pressure [Le ft Arm] 126/59 L Pulse Oximetry 93 89 89 Oxygen Delivery Me thod Nasal Cannula Nasal Cannula Nasal Cannula Oxygen Flow Rate 1 1.5 1.5 12/23/23 19:40 12/23/23 23:00 12/23/23 23:00 Temperature 97.6 F 97.6 F Pulse Rate Pulse Rate [Pulse Oximeter] 67 59 L Respiratory Rate 20 18 18 Blood Pressure Blood Pressure [Le ft Arm] 111/45 L 118/60 Pulse Oximetry 88 91 91 Oxygen Delivery Me thod Nasal Cannula Room Air Nasal Cannula Oxygen Flow Rate 1.5 1.5 12/23/23 23:00 12/24/23 00:25 12/24/23 03:16 Temperature 97.7 F Pulse Rate 60 Pulse Rate [Pulse Oximeter] 59 L 68 Respiratory Rate 18 22 Blood Pressure Blood Pressure [Le ft Arm] 112/58 L Pulse Oximetry 91 Oxygen Delivery Me thod Nasal Cannula Oxygen Flow Rate 2 12/24/23 07:00 12/24/23 08:00 12/24/23 08:00 Temperature 97.6 F Pulse Rate Pulse Rate [Pulse Oximeter] 62 80 Respiratory Rate 20 20 20 Blood Pressure Blood Pressure [Le ft Arm] 87/44 L Pulse Oximetry 90 94 Oxygen Delivery Me thod Nasal Cannula Nasal Cannula Oxygen Flow Rate 1 2 12/24/23 08:00 Temperature 97.6 F Pulse Rate Pulse Rate [Pulse Oximeter] 80 Respiratory Rate 20 Blood Pressure Blood Pressure [Le ft Arm] 120/98 H Pulse Oximetry 94 Oxygen Delivery Me thod Nasal Cannula Oxygen Flow Rate 2 Labs Labs: Laboratory Results - last 24 hr 12/23/23 12/23/23 12/23/23 12:35 13:40 16:12 WBC RBC Hgb Hct MCV MCH MCHC RDW Coeff of Sander Plt Count Neut % (Auto) Lymph % (Auto) [place] % (Auto) Eos % (Auto) Baso % (Auto) Neut # (Auto) Lymph # (Auto) [place] # (Auto) Eos # (Auto) Baso # (Auto) Abs Immat Gran (auto) Imm/Tot Granulo (auto) VBG pH 7.408 VBG pCO2 44 VBG pO2 < 30.1 VBG HCO3 28 Carboxyhemoglobin 3.5 Sodium 127 L Potassium 4.0 Chloride 95 L Carbon Dioxide 24 Anion Gap 8 BUN 20 Creatinine 1.1 Estimated Creat Clear 37.55 Estimated GFR 50 Glucose 100 Calcium 9.1 Magnesium 1.8 Total Bilirubin 0.9 Direct Bilirubin 0.3 AST 30 ALT 16 Alkaline Phosphatase 82 Troponin I 0.01 C-Reactive Protein 6.1 H NT-Pro-B Natriuret Pep 964 Total Protein 7.2 Albumin 3.6 Procalcitonin 0.10 Urine Color [place] A Urine Appearance Turbid A Urine pH 6.0 Ur Specific [place] 1.010 Urine Protein Trace A Urine Glucose (UA) Negative Urine Ketones Negative Urine Blood Negative Urine Nitrite Negative Urine Bilirubin Negative Urine Urobilinogen 0.2 Ur Leukocyte Esterase Negative Urine RBC 2-5 A Urine WBC 2-5 Ur Squamous Epith Cells Few Urine Bacteria None Fine Granular Casts Few A Lab Acknowledgement Test Added Test Added 12/24/23 06:10 WBC 7.70 RBC 3.53 L Hgb 10.9 L Hct 33.3 MCV 94 MCH 31 MCHC 33 RDW Coeff of Sander 13.1 Plt Count 177 Neut % (Auto) 88.4 H Lymph % (Auto) 6.6 L [place] % (Auto) 4.5 Eos % (Auto) 0.0 Baso % (Auto) 0.0 Neut # (Auto) 6.80 Lymph # (Auto) 0.50 L [place] # (Auto) 0.30 Eos # (Auto) 0.00 Baso # (Auto) 0.00 Abs Immat Gran (auto) 0.04 Imm/Tot Granulo (auto) 0.5 VBG pH 7.408 VBG pCO2 37 L VBG pO2 47.7 H VBG HCO3 23 Carboxyhemoglobin Sodium 128 L Potassium 4.0 Chloride 99 Carbon Dioxide 21 Anion Gap 8 BUN 17 Creatinine 0.8 Estimated Creat Clear 41.30 Estimated GFR 74 Glucose 116 H Calcium 8.4 Magnesium Total Bilirubin Direct Bilirubin AST ALT Alkaline Phosphatase Troponin I C-Reactive Protein 5.5 H NT-Pro-B Natriuret Pep Total Protein Albumin Procalcitonin Urine Color Urine Appearance Urine pH Ur Specific [place] Urine Protein Urine Glucose (UA) Urine Ketones Urine Blood Urine Nitrite Urine Bilirubin Urine Urobilinogen Ur Leukocyte Esterase Urine RBC Urine WBC Ur Squamous Epith Cells Urine Bacteria Fine Granular Casts Lab Acknowledgement
--- NOTE | 2023-12-24 13:45 | RESP.RT ---
Pt seen this afternoon. BBS decreased, clear. PT with very strong congested [employer] cough. Daughter reports it sounds better. LHL125% on 1L. Pt continues to smoke and will not be stopping. Would like to DC her without oxygen if appropriate. [place] does live [place], and is in the community at times. She says she does not get short of breath. Pt with neb machine at home, and does treatments 4x per day. She feels this is adequate, and does not wake up SOB at night. Will check for oxygen needs before DC.
[2023-12-24] MEDS: 0.9 % SODIUM CHLORIDE 250 ml 250 ML 125 ML IV (16:32)
--- NOTE | 2023-12-24 19:04 | PC.NURSE ---
Pt up with SBA to bathroom. Self describes as little appetite and reduced food intake. Ate 25-50% of each meal today. Encouraged oral intake. B/P low at lunch hour assessment. Updated DrMyra, order for bolus and orthostatic B/P, see charting. Systolic remains below 100, additional Bolus ordered and given, Systolic remains below 100, sent message to Awaiting changes in orders.
[2023-12-24] MEDS: SODIUM CHLORIDE 0.9 % (FLUSH) 10 ML SYRINGE 5 ML IVF (21:24)
[2023-12-24] MEDS: SIMVASTATIN 10 MG TABLET PO (21:24)
[2023-12-24] MEDS: ENOXAPARIN 40 MG/0.4 ML INJ SUBCUT (21:24)
[2023-12-25 01:50] VITALS: BP 104/49; PULSE 61; RESP 22; TEMP 36.6; O2SAT 92
--- NOTE | 2023-12-25 05:10 | PC.NURSE ---
Shift note: Occasional cough, some SOB with exertion. Pt is disoriented overnight to the place and situation, unable to use call light appropriately. RN provided reorientation to pt surroundings throughout the shift. Pt is afebrile, ambulates with SBA/assist of 1, furniture walking, unsteady on her feet. Partially incontinent and voiding, no c/o pain
[2023-12-25 06:11] LABS: HCO3 VBG 25 mmol/L (21-28); PCO2 VBG 41 mmHG (40-50); PO2 VBG < 30.1 mmHG (25-47); pH VBG 7.399 (7.32-7.43)
[2023-12-25 06:18] LABS: Basophils Absolute Auto 0.01 K/uL (0.00-0.30); Basophils Percent Auto 0.1 % (0.0-3.0); Hematocrit 30.6 % (33.0-51.0); Hemoglobin* 10.1 gm/dL (12.0-16.0); Immature Granulocytes Abs Auto 0.03 K/uL (0.00-0.30); Immature Granulocytes Pct Auto 0.3 %; Lymphocytes Percent Auto 11.3 % (20-44); Mean Corpuscular HGB Conc 33 gm/dL (32-36); Mean Corpuscular Hemoglobin 31 pg (26-34); Mean Corpuscular Volume 94 fL (80-100); Monocytes Percent Auto 6.6 % (0.0-11.0); Neutrophils Percent Auto 81.7 % (42.0-72.0); Platelet Count* 185 K/uL (140-440); Red Blood Count 3.24 m/uL (4.00-5.20); White Blood Count* 10.04 K/uL (4.50-11.00)
[2023-12-25 06:41] LABS: Slide Review Reflex No
[2023-12-25 06:47] LABS: Chloride* 98 mmol/L (96-114)
[2023-12-25 06:48] LABS: Sodium* 126 mmol/L (135-149)
[2023-12-25 06:50] LABS: Creatinine* 0.9 mg/dL (0.5-1.5); Estimated Glomerular Filt Rate 64 ml/min
[2023-12-25 06:51] LABS: Anion Gap 4 mEq/L (7-15); Blood Urea Nitrogen* 18 mg/dL (7-30); Calcium* 8.3 mg/dL (8.4-10.6); Carbon Dioxide* 24 mmol/L (20-32); Glucose* 80 mg/dL (60-115)
[2023-12-25 07:00] VITALS: BP 121/48; PULSE 55; PULSE 61; RESP 22; TEMP 36.6; O2SAT 90
[2023-12-25] MEDS: IPRAT-ALBUT 0.5-2.5 MG/3 ML NEB 1 NEB IH ×3 (07:42→19:12)
[2023-12-25] MEDS: predniSONE 20 MG TABLET 40 MG PO (07:42)
[2023-12-25] MEDS: OMEPRAZOLE 20 MG CAPSULE DR 40 MG PO (07:42)
[2023-12-25] MEDS: ASPIRIN 81 MG TAB.CHEW PO (08:36)
[2023-12-25] MEDS: cefTRIAXone 1 GM in 0.9 % SODIUM CHLORIDE Mini-bag 100 ML IVPB (08:36)
[2023-12-25] MEDS: AZITHROMYCIN 250 MG TABLET PO (08:36)
[2023-12-25] MEDS: SODIUM CHLORIDE 0.9 % (FLUSH) 10 ML SYRINGE 5 ML IVF ×2 (08:43→20:58)
--- NOTE | 2023-12-25 09:22 | NUTR.NU ---
Nutrition education was provided to patient on high protein, high calorie diet related to weight loss and recommended diagnosis of severe protein-calorie malnutrition. ?Education provided to patient and designated caregiver, Michelle. Discussed foods that are high in calories and protein, as well as the use of nutrition supplements such as Ensure Enlive and Boost to help meet daily energy needs. Also discussed frequent small meals (5-6x/day) may be more easily managed instead of 3 big meals daily. Handouts reviewed and provided to patient from [facility] on High-Calorie, High-Protein diet and High-Calorie, High-Protein Recipe Ideas. Patient and designated caregiver verbalized understanding. Patient is currently on a regular diet with 1500ml fluid restriction. Patient continues to report a decreased appetite and per marriage and family teacher patient is eating on average 25-50% of meals since admission. Patient continues to be accepting of the Enlive once daily and consumed 100% yesterday. Current weight of 165lbs 12/25/23 shows a weight gain of 8lbs with weight of 157lbs 12/23/23. Weight fluctuation likely r/t hydration status. RDN's contact information was provided and patient was encouraged to contact RDN with questions. RDN will continue to follow PRN.
[2023-12-25] MEDS: SODIUM CHLORIDE 1 GM TABLET PO ×3 (10:27→19:12)
[2023-12-25] MEDS: 0.9 % SODIUM CHLORIDE 250 ml 250 ML IV (10:27)
[2023-12-25 11:00] VITALS: BP 111/50; PULSE 64; RESP 22; TEMP 36.6; O2SAT 92
[2023-12-25 12:18] LABS: Sodium* 126 mmol/L (135-149)
--- NOTE | 2023-12-25 12:53 | PM.IMPN1 ---
Progress Note: A&P Assessment and plan (1) Community acquired pneumonia: Problem details: - Clinically this appears to be the cause of her acute weakness and acute hypoxia. - IV ceftriaxone and oral azithromycin Status: Acute (2) Hypoxia: Problem details: - Hypoxic respiratory failure primarily due to pneumonia - continues to require oxygen supplementation at 2 liters/minute via nasal cannula - underlying COPD with history of smoking Status: Acute (3) COPD (chronic obstructive pulmonary disease): Problem details: - COPD is contributing to her hypoxic respiratory failure but probably not the primary cause. Continue nebulizers and prednisone. - continue with current treatment intervention efforts Status: Acute (4) Weakness: Problem details: - Chronic weakness due to weight loss, deconditioning. Acute weakness due to pneumonia - PT and OT to consult and assist with assessment and recommendations Status: Acute (5) Mild cognitive impairment: Problem details: - Aricept started 12/01. Due to poor appetite and weight loss will stop Aricept for now. - longstanding progression of cognitive impairment and functional decline suggest underlying Alzheimer's type dementia verses vascular dementia Status: Acute (6) Chronic hyponatremia: Problem details: - Stop losartan. Monitor. May be due to chronic lung disease plus oral hydration efforts -12/25/2023: Sodium down to 126 from 128 yesterday. Normal saline IV fluid bolus. Sodium chloride 1 g p.o. t.i.d.. Continue with 1500 mL fluid restriction. Monitor sodium level. Status: Acute (7) Essential hypertension: Problem details: - On losartan. Blood pressure is now low normal range so will stop losartan for now Status: Acute (8) Weight loss: Problem details: - Her 9 lb weight loss in the last 5 weeks is concerning. Cause for this is uncertain. Status: Acute (9) Edema of left lower extremity: Problem details: - check venous Doppler study of left lower extremity to rule out deep venous thrombosis this afternoon Status: Acute Plan 1. Reviewed impression with patient and daughterMichelle 2. Reviewed plans and recommendations with patient and daughter, Michelle 3. Continue with supportive efforts 4. Need to stabilize serum sodium before we can consider discharge 5. Await venous Doppler study of left lower extremity before deciding on any additional interventions 6. Answered their questions to their satisfaction 7. They are agreeable with above stated plans and recommendations Time Spent With Patient Total time spent: 40 minutes Subjective Date Seen: 10/17/24 Interval history: History of present illness on admission: ?Mia Miles is a 83 year old female with COPD and dementia admitted through the emergency department with acute on chronic dyspnea and weakness. Over the past few weeks the patient has had some decline in her overall health status. She has been losing weight in eating poorly she has been getting weaker. This was a very gradual process until the last 1-2 days when she has acutely gotten profoundly weak and dyspneic. She has known COPD and continues to smoke. She is not on home oxygen and O2 sats are typically in the low 90s at home. In the last day or 2 she has been more hypoxic. She has lost 9 lb in the last 5 weeks. Reports no abdominal pain nausea or vomiting. She has had some loose stools in the last couple days She reports just having no appetite. She has a chronic nonproductive cough. No chest pain. ?1 month ago she was evaluated in clinic for memory loss. She was started on Aricept. MRI of the brain was obtained showing worsening cerebral atrophy and small-vessel ischemic changes. This was compared to 2016. Hospital day 3. Admitted 12/23/2023. Being treated for weakness, confusion, pneumonia, chronic obstructive pulmonary disease, hyponatremia, and new left lower extremity edema as of 12/25/2023. She states she is doing all right. As of this morning she has not been requiring oxygen supplementation to maintain resting saturations greater than 88%. Resting room air oxygen saturation this morning 92-94%. States she is at her baseline level of dyspnea with exertion, and denies dyspnea at rest. Baseline level of cough which is nonproductive but loose sounding. It is not clear to me that she started her fluid restrictions yesterday until later in the day. Nevertheless tolerating 1500 mL fluid restriction per day. Exam Narrative: Exam Narrative: I examined patient in her hospital room and in the hallway while she is ambulating. Appears comfortable and in no acute distress. Vision and hearing are adequate. When awake she is alert and oriented to self, place, not so much to time or situation. Again tells me she wants to go home. Scattered rhonchi bilaterally in her lung daniels. Still has rales in the left compared to the right. No wheezing. Barrel-shaped chest. Chest wall excursions full with respiratory efforts. No CVA tenderness to thumping. Heart tones with regular rhythm, normal S1-S2. Abdomen with active bowel sounds, soft, nontender. Left lower extremity has more edema today than the right. This is more apparent later in the morning compared to earlier in the morning when I 1st examined her. Ambulating with walker. Const: Vital Signs, click to edit/add: Vital Signs - 24 hr 12/24/23 14:49 12/24/23 15:00 12/24/23 15:00 Temperature Pulse Rate 65 Pulse Rate [Pulse Oximeter] 65 Pulse Rate [orthos tatic lying Left P ulse Oximeter] 56 L Pulse Rate [orthos tatic sitting Left Pulse Oximeter] 58 L Pulse Rate [orthos tatic standing Lef t Pulse Oximeter] 72 Respiratory Rate 20 Blood Pressure [Le ft Arm] Blood Pressure [or thostatic lying Le ft Arm] 90/50 L Blood Pressure [or thostatic sitting Left Arm] 92/54 L Blood Pressure [or thostatic standing Left Arm] 90/49 L Pulse Oximetry Oxygen Delivery Me thod Oxygen Flow Rate 12/24/23 15:00 12/24/23 15:00 12/24/23 19:00 Temperature 97.7 F 98 F Pulse Rate Pulse Rate [Pulse Oximeter] 58 L 61 Pulse Rate [orthos tatic lying Left P ulse Oximeter] Pulse Rate [orthos tatic sitting Left Pulse Oximeter] Pulse Rate [orthos tatic standing Lef t Pulse Oximeter] Respiratory Rate 20 20 20 Blood Pressure [Le ft Arm] 90/50 L 92/73 Blood Pressure [or thostatic lying Le ft Arm] Blood Pressure [or thostatic sitting Left Arm] Blood Pressure [or thostatic standing Left Arm] Pulse Oximetry 91 91 93 Oxygen Delivery Me thod Nasal Cannula Nasal Cannula Nasal Cannula Oxygen Flow Rate 1 1 1 12/24/23 23:00 12/24/23 23:00 12/24/23 23:00 Temperature Pulse Rate 62 Pulse Rate [Pulse Oximeter] 61 Pulse Rate [orthos tatic lying Left P ulse Oximeter] Pulse Rate [orthos tatic sitting Left Pulse Oximeter] Pulse Rate [orthos tatic standing Lef t Pulse Oximeter] Respiratory Rate 20 20 Blood Pressure [Le ft Arm] Blood Pressure [or thostatic lying Le ft Arm] Blood Pressure [or thostatic sitting Left Arm] Blood Pressure [or thostatic standing Left Arm] Pulse Oximetry 93 Oxygen Delivery Me thod Nasal Cannula Oxygen Flow Rate 1 12/24/23 23:00 12/25/23 01:50 12/25/23 07:00 Temperature 98.2 F 97.8 F Pulse Rate Pulse Rate [Pulse Oximeter] 56 L 61 61 Pulse Rate [orthos tatic lying Left P ulse Oximeter] Pulse Rate [orthos tatic sitting Left Pulse Oximeter] Pulse Rate [orthos tatic standing Lef t Pulse Oximeter] Respiratory Rate 20 22 22 Blood Pressure [Le ft Arm] 120/61 104/49 L Blood Pressure [or thostatic lying Le ft Arm] Blood Pressure [or thostatic sitting Left Arm] Blood Pressure [or thostatic standing Left Arm] Pulse Oximetry 92 92 Oxygen Delivery Me thod Nasal Cannula Room Air Oxygen Flow Rate 1 12/25/23 07:00 12/25/23 07:00 12/25/23 07:00 Temperature 97.8 F Pulse Rate 55 L Pulse Rate [Pulse Oximeter] 61 Pulse Rate [orthos tatic lying Left P ulse Oximeter] Pulse Rate [orthos tatic sitting Left Pulse Oximeter] Pulse Rate [orthos tatic standing Lef t Pulse Oximeter] Respiratory Rate 22 22 Blood Pressure [Le ft Arm] 121/48 L Blood Pressure [or thostatic lying Le ft Arm] Blood Pressure [or thostatic sitting Left Arm] Blood Pressure [or thostatic standing Left Arm] Pulse Oximetry 90 90 Oxygen Delivery Me thod Room Air Room Air Oxygen Flow Rate 12/25/23 11:00 Temperature 97.8 F Pulse Rate Pulse Rate [Pulse Oximeter] 64 Pulse Rate [orthos tatic lying Left P ulse Oximeter] Pulse Rate [orthos tatic sitting Left Pulse Oximeter] Pulse Rate [orthos tatic standing Lef t Pulse Oximeter] Respiratory Rate 22 Blood Pressure [Le ft Arm] 111/50 L Blood Pressure [or thostatic lying Le ft Arm] Blood Pressure [or thostatic sitting Left Arm] Blood Pressure [or thostatic standing Left Arm] Pulse Oximetry 92 Oxygen Delivery Me thod Room Air Oxygen Flow Rate Labs Labs: Laboratory Results - last 24 hr 12/25/23 12/25/23 05:50 11:53 WBC 10.04 RBC 3.24 L Hgb 10.1 L Hct 30.6 L MCV 94 MCH 31 MCHC 33 RDW Coeff of Sander 13.0 Plt Count 185 Neut % (Auto) 81.7 H Lymph % (Auto) 11.3 L [place] % (Auto) 6.6 Eos % (Auto) 0.0 Baso % (Auto) 0.1 Neut # (Auto) 8.20 H Lymph # (Auto) 1.10 [place] # (Auto) 0.70 Eos # (Auto) 0.00 Baso # (Auto) 0.01 Abs Immat Gran (auto) 0.03 Imm/Tot Granulo (auto) 0.3 VBG pH 7.399 VBG pCO2 41 VBG pO2 < 30.1 VBG HCO3 25 Sodium 126 L 126 L Potassium 4.0 Chloride 98 Carbon Dioxide 24 Anion Gap 4 L BUN 18 Creatinine 0.9 Estimated Creat Clear 41.30 Estimated GFR 64 Glucose 80 Calcium 8.3 L
--- NOTE | 2023-12-25 14:45 | CRLHL7_ITS ---
For Patients: As a result of the Century Cures Act, medical imaging exams and procedure reports are released immediately into your electronic medical record. You may view this report before your referring provider. If you have questions, please contact your health care provider. Indication: LLE swelling, hospitalized Technique: Real-time longitudinal and transverse sonographic grayscale imaging with and without compression, as well as color and duplex Doppler imaging before and after augmentation, was obtained of the deep system of the left lower extremity, including the common femoral, femoral, popliteal, posterior tibial, and peroneal veins. Comparison: None. Findings: Common femoral vein: No evidence of thrombus. Femoral vein: No evidence of thrombus. Popliteal vein: No evidence of thrombus. Calf veins: Patent. Impression: No ultrasound evidence of deep venous thrombosis. Dictated by Adriano Ramirez MD @ 12/25/2023 3:20:47 PM (Electronically Signed)
[2023-12-25 15:00] VITALS: BP 119/58; PULSE 62; RESP 22; TEMP 36.6; O2SAT 92
[2023-12-25] MEDS: polyethylene glycoL 238 GM BULK BOTTLE PO (17:19)
[2023-12-25] MEDS: bisacodyL 5 MG TABLET DR 10 MG PO (17:22)
[2023-12-25 18:16] LABS: Sodium* 125 mmol/L (135-149)
[2023-12-25 19:00] VITALS: BP 137/62; PULSE 60; RESP 20; TEMP 36.6; O2SAT 92
[2023-12-25] MEDS: ENOXAPARIN 40 MG/0.4 ML INJ SUBCUT (20:58)
[2023-12-25] MEDS: SIMVASTATIN 10 MG TABLET PO (20:58)
--- NOTE | 2023-12-25 23:32 | PC.NURSE ---
Shift Note: Pt friendly and cooperative, able to verbalize her needs. Moving well with SBA with GB and walker. Denies pain. She does exhibit an occasional nonproductive moist cough. Pt was encouraged to utilize her aerobika and TCDB. Fair appetite, she at about 25% of her dinner and declined other snacks offered in the evening. Pt given Powerade with Miralax to promote BM per MD order. Pt states she is feeling much more like herself and is hoping to discharge home tomorrow.
[2023-12-26 00:35] VITALS: BP 135/65; PULSE 59; RESP 20; TEMP 36.7; O2SAT 90
[2023-12-26] MEDS: IPRAT-ALBUT 0.5-2.5 MG/3 ML NEB 1 NEB IH ×2 (00:39→06:03)
[2023-12-26 02:10] VITALS: PULSE 62
[2023-12-26 04:00] VITALS: BP 130/76; PULSE 73; RESP 18; TEMP 36.6; O2SAT 92
[2023-12-26] MEDS: OMEPRAZOLE 20 MG CAPSULE DR 40 MG PO (06:03)
--- NOTE | 2023-12-26 06:52 | PC.NURSE ---
END OF SHIFT NOTE: PT PLEASANT AND COOPERATIVE WITH CARES. A&O WITH OCCASIONAL CONFUSION. AMBULATES WITH WALKER AND SBA. TELE- NSR. USES CALL LIGHT APPROPRIATELY. BED ALARM ON AND CALL LIGHT WITHIN PT REACH.
[2023-12-26 07:40] VITALS: BP 137/60; PULSE 63; RESP 20; TEMP 36.6; O2SAT 94
[2023-12-26 08:04] VITALS: PULSE 60
[2023-12-26 08:35] LABS: Albumin* 3.3 g/dL (3.3-5.0); Chloride* 98 mmol/L (96-114); Potassium* 3.4 mmol/L (3.6-5.1); Sodium* 130 mmol/L (135-149)
[2023-12-26 08:38] LABS: Anion Gap 8 mEq/L (7-15); Blood Urea Nitrogen* 14 mg/dL (7-30); Carbon Dioxide* 24 mmol/L (20-32); Creatinine* 0.9 mg/dL (0.5-1.5); Estimated Glomerular Filt Rate 64 ml/min; Glucose* 82 mg/dL (60-115); Phosphorus* 2.6 mg/dL (2.5-4.5)
[2023-12-26 08:39] LABS: Magnesium* 1.8 mg/dL (1.5-2.6)
[2023-12-26] MEDS: predniSONE 20 MG TABLET 40 MG PO (08:40)
[2023-12-26] MEDS: ASPIRIN 81 MG TAB.CHEW PO (08:40)
[2023-12-26] MEDS: SODIUM CHLORIDE 0.9 % (FLUSH) 10 ML SYRINGE 5 ML IVF (08:40)
[2023-12-26] MEDS: cefTRIAXone 1 GM in 0.9 % SODIUM CHLORIDE Mini-bag 100 ML IVPB (08:40)
[2023-12-26] MEDS: SODIUM CHLORIDE 1 GM TABLET PO (08:40)
[2023-12-26] MEDS: AZITHROMYCIN 250 MG TABLET PO (08:40)
--- NOTE | 2023-12-26 15:14 | P.DS_ITS ---
DS: Providers Provider Date Seen: 12/26/23 Date of admission: 12/23/23 17:06 Primary care physician: Saba Lakhani MD Admitting Clinician: Jose Echavarria MD Consults: 12/23/23 16:48 Consult to Occupational Therapy [CONS] Routine Comment: Reason(s) for OT Consult:: Evaluate and Treat Any Restrictions?:: No Restrictions Consult to Physical Therapy [CONS] Routine Comment: Reason(s) for PT Consult:: Evaluate and Treat Any Restrictions?:: No Restrictions 12/23/23 16:49 Consult to Respiratory Therapy [CONS] Routine Comment: Reason(s) for RT Consult:: Consult 12/23/23 16:53 Consult to Nutrition [CONS] Urgent Comment: Reason for consult:: Weight Loss Attending Physician on discharge: Dominick Keenan MD Date of Discharge: 12/26/23 DS: Diagnosis Discharge Diagnosis (1) Community acquired pneumonia: Status: Acute Problem details: - Clinically this appears to be the cause of her acute weakness and acute hypoxia. - IV ceftriaxone and oral azithromycin, transition to oral antibiotics at time of discharge (2) Hypoxia: Status: Acute Problem details: - Hypoxic respiratory failure primarily due to pneumonia - initially required oxygen supplementation, but later tolerated room air with resting oxygen saturations greater than 88% even with exertion - underlying COPD with history of smoking (3) COPD (chronic obstructive pulmonary disease): Status: Acute Problem details: - COPD is contributing to her hypoxic respiratory failure but probably not the primary cause. Continue nebulizers and prednisone. - continue with current treatment intervention efforts (4) Chronic obstructive pulmonary disease: Status: Acute Problem details: on inhalers (5) Weakness: Status: Acute Problem details: - Chronic weakness due to weight loss, deconditioning. Acute weakness due to pneumonia - PT and OT to consult and assist with assessment and recommendations (6) Chronic hyponatremia: Status: Acute Problem details: - Stop losartan. Monitor. May be due to chronic lung disease plus oral hydration efforts -12/25/2023: Sodium down to 126 from 128 yesterday. Normal saline IV fluid bolus. Sodium chloride 1 g p.o. t.i.d.. Continue with 1500 mL fluid restriction. Monitor sodium level. -12/26/2023: Serum sodium 130 with interventions. Will need follow-up. Ordered urine sodium and serum osmolality in these results are still pending at time of discharge. (7) Mild cognitive impairment: Status: Acute Problem details: - Aricept started 12/01. Due to poor appetite and weight loss will stop Aricept for now. - longstanding progression of cognitive impairment and functional decline suggest underlying Alzheimer's type dementia verses vascular dementia (8) Nicotine dependence: Status: Acute (9) Depression with anxiety: Status: Acute (10) Essential hypertension: Status: Acute Problem details: - On losartan. Blood pressure is now low normal range so will stop losartan for now (11) Weight loss: Status: Acute Problem details: - Her 9 lb weight loss in the last 5 weeks is concerning. Cause for this is uncertain. (12) Edema of left lower extremity: Status: Acute Problem details: - check venous Doppler study of left lower extremity to rule out deep venous thrombosis this afternoon (13) GERD (gastroesophageal reflux disease): Status: Acute Problem details: on PPI DS: Summary Hospital Course Hospital Course: Admission history of present illness: ?Mia Miles is a 83 year old female with COPD and dementia admitted through the emergency department with acute on chronic dyspnea and weakness. Over the past few weeks the patient has had some decline in her overall health status. She has been losing weight in eating poorly she has been getting weaker. This was a very gradual process until the last 1-2 days when she has acutely gotten profoundly weak and dyspneic. She has known COPD and continues to smoke. She is not on home oxygen and O2 sats are typically in the low 90s at home. In the last day or 2 she has been more hypoxic. She has lost 9 lb in the last 5 weeks. Reports no abdominal pain nausea or vomiting. She has had some loose stools in the last couple days She reports just having no appetite. She has a chronic nonproductive cough. No chest pain. 1 month ago she was evaluated in clinic for memory loss. She was started on Aricept. MRI of the brain was obtained showing worsening cerebral atrophy and small-vessel ischemic changes. This was compared to 2016.? Treated with IV fluids, IV antibiotics, oxygen supplementation. In time condition normalized. For details see above. Serum sodium 126 on presentation. Gradually made adjustments as specified above and serum sodium started to rise thereafter and at time of discharge was 130. Will need ongoing follow-up and management efforts. For details of other problems address C diagnosis section above. Time Spent with Patient Time attestation: Total time spent providing and/or coordinating discharge services: Exam Narrative: Exam Narrative: I examined patient in her hospital room and in the hallway while she is ambulating. Appears comfortable and in no acute distress. Vision and hearing are adequate. When awake she is alert and oriented to self, place, not so much to time or situation. Again tells me she wants to go home. Scattered rhonchi bilaterally in her lung daniels. Still has rales in the left compared to the right. No wheezing. Barrel-shaped chest. Chest wall excursions full with respiratory efforts. No CVA tenderness to thumping. Heart tones with regular rhythm, normal S1-S2. Abdomen with active bowel sounds, soft, nontender. Reducible ventral abdominal wall hernia. Left lower extremity has more edema today than the right. This is more apparent later in the morning compared to earlier in the morning when I 1st examined her. Ambulating with walker. Const: Vital Signs, click to edit/add: Vital Signs - 24 hr 12/25/23 19:00 12/26/23 00:35 12/26/23 00:35 Temperature 97.8 F Pulse Rate Pulse Rate [Pulse Oximeter] 60 59 L Respiratory Rate 20 20 20 Blood Pressure [Le ft Arm] 137/62 Pulse Oximetry 92 90 Oxygen Delivery Mn thod Room Air Room Air 12/26/23 00:35 12/26/23 02:10 12/26/23 04:00 Temperature 98.0 F 97.8 F Pulse Rate 62 Pulse Rate [Pulse Oximeter] 59 L 73 Respiratory Rate 20 18 Blood Pressure [Le ft Arm] 135/65 130/76 Pulse Oximetry 90 92 Oxygen Delivery Mn thod Room Air Room Air 12/26/23 07:40 12/26/23 07:40 12/26/23 08:04 Temperature 97.9 F Pulse Rate 60 Pulse Rate [Pulse Oximeter] 63 Respiratory Rate 20 20 Blood Pressure [Le ft Arm] 137/60 Pulse Oximetry 94 94 Oxygen Delivery Mn thod Room Air Room Air DS: Data Data Completed and Pending Labs on day of discharge: Labs from last 24 hours 12/26/23 12/25/23 08:03 17:56 Sodium 130 L 125 L Potassium 3.4 L Chloride 98 Carbon Dioxide 24 Anion Gap 8 BUN 14 Creatinine 0.9 Estimated Creat Clear 41.30 Estimated GFR 64 Glucose 82 Calcium 9.0 Phosphorus 2.6 Magnesium 1.8 Albumin 3.3 Serotonin Pending Imaging Chest x-ray: Attestation: I have reviewed the pertinent imaging results. Radiologist's impression: Blunting of the left costophrenic angle compatible with atelectasis and/or trace effusion. New left lung base opacity which may represent atelectasis or consolidation. Mildly hyperexpanded lungs. Similar prominence of the bilateral perihilar pulmonary vasculature. CT scan - chest, abdomen, pelvis: Attestation: I have reviewed the pertinent imaging results. Radiologist's impression: 1. Mild ground-glass opacities with minimal centrilobular nodularity suspicious for an infectious bronchiolitis or viral pneumonia. Additional endobronchial soft tissue density in the left lower lobe with partial atelectasis and consolidation left lower lobe. This can represent endobronchial debris in the setting of a left lower lobe pneumonia with partial atelectasis; differential includes aspiration. However, follow-up chest CT suggested in 1-2 months after treatment to ensure clearance of the bronchi and exclude an endobronchial lesion. 2. Fat containing epigastric ventral hernia and right inguinal hernia with colon in the hernia sac without evidence of obstruction. 3. Other incidental findings as detailed above. Discharge Plan Discharge Disposition: Home w/ Parent or Adult Date of Admission: 12/23/23 17:06 Attending Provider on Discharge: Dominick Keenan Primary Care Provider: Saba Lakhani Condition: Stable Anticipated Discharge Date/Time: 12/26/23 11:00 Discharge Medications: New azithromycin 250 mg Tablet 250 mg PO Q24H Qty: 2 0RF Taper: [id number] 250 mg Q24H for 2 Days and 0 Hour losartan 25 mg tablet 25 mg PO DAILY Qty: 30 2RF cefdinir 300 mg capsule 300 mg PO BID Qty: 6 0RF sodium chloride 1,000 mg Tablet,Soluble 1,000 mg PO TIDWM 30 Days Qty: 90 0RF Continued aspirin 81 mg tablet,chewable 1 tab PO DAILY calcium carbonate-vitamin D3 600 mg-10 mcg (400 unit) capsule 1 cap PO DAILY Cogniultra 2 cap PO DAILY ipratropium-albuterol 0.5 mg-3 mg(2.5 mg base)/3 mL solution for nebulization 3 ml inhalation QID nystatin 100,000 unit/gram powder 1 applic topical TID PRN simvastatin 10 mg tablet 10 mg PO .Bedtime Qty: 90 2RF omeprazole 40 mg capsule,delayed release(DR/EC) 40 mg PO DAILY Qty: 90 0RF albuterol sulfate 90 mcg/actuation HFA aerosol inhaler 2 puff inhalation Q4H PRN (Reason: bronchospasm) Qty: 6.7 2RF Rx Instructions: as needed Discontinued donepezil [Aricept] 5 mg tablet 5 mg PO QHS Qty: 90 3RF losartan 50 mg tablet 50 mg PO QDAY Qty: 90 0RF Discharge Orders: Discharge Order (Routine); Ordered 12/26/23 Ordered By: Dominick Keenan Patient Education: Azithromycin (By mouth), Cefdinir (By mouth), Sodium Chloride (By mouth), Hyponatremia (DC), COPD (Chronic Obstructive Pulmonary Disease) (DC), Community Acquired Pneumonia (DC) Additional Instructions: 1. Family to continue to help with medication set up 2. Continue with all follow-up plans, routine cares, preventive measures with your primary care physician 3. Follow-up with Dr. Lakhani in 5-7 days with pre-visit hemoglobin and sodium level 4. Return to clinic or hospital sooner if needed Activity Level: Activity as Tolerated and Use Walker Activity Detail: 4ww Discharge Diet: Regular Follow Up Appointments: Saba Lakhani MD [Primary Care Provider] - 12/30/23 2:45 pm ([facility] for follow up with PCP) Forms: [employer] Info Instructions
== END 2023-12-26 11:02 | disposition home or self-care (01) | DRG 193 ==
LOC: ED 16:34 → MEDSURG 17:03
PROVIDERS: Internal Medicine; Admitting Provider Family Medicine; Emergency Provider Family Medicine; PCP Internal Medicine; Visit Provider Family Medicine
DX: J18.9 Pneumonia, unspecified organism (principal); J96.01 Acute respiratory failure with hypoxia; J44.0 Chronic obstructive pulmonary disease with (acute) lower respiratory infection; E87.1 Hypo-osmolality and hyponatremia; J98.11 Atelectasis; Z72.0 Tobacco use; G31.84 Mild cognitive impairment of uncertain or unknown etiology; I10 Essential (primary) hypertension; R63.4 Abnormal weight loss; Z68.26 Body mass index [BMI] 26.0-26.9, adult; R53.1 Weakness; R60.0 Localized edema; K21.9 Gastro-esophageal reflux disease without esophagitis; K40.90 Unilateral inguinal hernia, without obstruction or gangrene, not specified as recurrent; F41.8 Other specified anxiety disorders; K43.9 Ventral hernia without obstruction or gangrene
CPT/HCPCS: 36415; 51798; 71045; 71260; 74177; 80048; 80053; 80069; 81001; 82248; 82375; 82803; 83605; 83735; 83880; 83930; 84145; 84260; 84295; 84300; 84484; 85025; 86140; 87631; 93005; 93971; 94640; 94761; 97161; 97165; 97535; 99285; A9270; J0696; J1650; J7030; J7050; J7512; Q9967

== ENCOUNTER 2023-12-28 19:19 | Emergency (ER) | payer MEDICARE, SELFPAY ==
[2023-12-28] VITALS (29 sets, daily range): BP systolic 84–133; BP diastolic 39–72; PULSE 78–112; RESP 16–30; TEMP 36.8; O2SAT 84–94; BMI 26.6
--- NOTE | 2023-12-28 19:39 | CRLHL7_ITS ---
For Patients: As a result of the Century Cures Act, medical imaging exams and procedure reports are released immediately into your electronic medical record. You may view this report before your referring provider. If you have questions, please contact your health care provider. INDICATION: Hypotension. Epigastric ventral hernia. TECHNIQUE: CT chest, abdomen and pelvis with 95 cc Isovue 370 IV contrast. COMPARISON: 12/23/2023. FINDINGS: CHEST: Cardiovascular structures: Heart size is normal. Thoracic aorta and main pulmonary artery are normal in caliber. Mediastinum and cee: No mass or adenopathy. Lungs and pleura: Small ground-glass infiltrates persist but have improved. Left basilar atelectasis and left lower lobe endobronchial debris is similar to the prior exam. No pleural effusion no pneumothorax. Chest wall and axilla: No mass or adenopathy. Bones: No suspicious bone lesions. Unremarkable for age. ABDOMEN AND PELVIS: Liver: Unremarkable. Gallbladder and bile ducts: Unremarkable. Pancreas: Unremarkable. Spleen: Unremarkable. Adrenal glands: Unremarkable. Kidneys: Multiple bilateral benign-appearing cysts. Kidneys otherwise unremarkable. GI tract: There is a swirling appearance of the mesentery and ileum in the right lower quadrant. There is a mobile cecum which is in the midline of the central abdomen. The ileum is moderately distended with fluid. The ascending and transverse colon are also distended with fluid and air. Vascular structures: Unremarkable. Lymph nodes: Unremarkable. Peritoneum/Retroperitoneum/Abdominal Wall: Large supraumbilical midline ventral hernia containing fat with fluid and inflammation. Pelvic Organs: Unremarkable. Bones and superficial soft tissues: No suspicious bone lesions. Unremarkable for age. IMPRESSION: 1. Persistent but improved pneumonitis. No other acute findings or significant changes in the chest. 2. Large supraumbilical midline ventral hernia contains fat with new fluid and inflammation. No bowel involvement regarding the hernia. 3. Findings suspicious for a volvulus and/or possible internal hernia in the right lower quadrant. Partial small bowel obstruction is possible but not definite. There is also fluid and gaseous distention of the ascending and transverse colon. Please note that all CT scans at this facility use dose modulation, iterative reconstruction, and/or weight-based dosing when appropriate to reduce radiation dose to as low as reasonably achievable. Dictated by Benigno Mccauley MD @ 12/28/2023 9:00:33 PM (Electronically Signed)
--- NOTE | 2023-12-28 19:48 | CRLHL7_ITS ---
For Patients: As a result of the Century Cures Act, medical imaging exams and procedure reports are released immediately into your electronic medical record. You may view this report before your referring provider. If you have questions, please contact your health care provider. Indication Altered mental status. TECHNIQUE: Noncontrast CT images of the brain. COMPARISON: MRI brain 12/01/2023. FINDINGS: Mild diffuse cerebral volume loss. No mass effect or midline shift. The brush white differentiation is maintained. No acute intracranial hemorrhage or pathologic extra-axial fluid collection. Suggested mild chronic microvascular ischemic changes. Intracranial atherosclerotic calcifications. Thinning of the ocular lenses. The calvarium is intact. Mild right maxillary sinus mucosal thickening. The mastoid air cells are clear. IMPRESSION: No acute intracranial hemorrhage or mass effect. Please note that all CT scans at this facility use dose modulation, iterative reconstruction, and/or weight-based dosing when appropriate to reduce radiation dose to as low as reasonably achievable. Dictated by Tai Levine MD @ 12/28/2023 8:47:52 PM (Electronically Signed)
--- NOTE | 2023-12-28 19:50 | ED.GENADULT ---
HPI - General Adult General Date Seen: 12/28/23 Chief complaint: Unspecified Complaint, Adult Stated complaint: low blood pressure, swollen L leg Time Seen by Provider: 12/28/23 19:33 Source: patient and family Mode of arrival: wheelchair Limitations: no limitations History of Present Illness HPI narrative: Patient is an 83-year-old female with a history of cognitive impairment, COPD presenting to the emergency department for weakness and hypotension. She is brought in by her daughters. She was just in the hospital for pneumonia and discharged 2 days ago. She was doing well over the weekend and then today they noticed she was weaker. His that time they looked at her ventral hernia noticed it was discolored and painful to the touch. This hernia is not new and was reducible when she was discharged from the emergency department. She has seen General surgery for it in the past was not a surgical candidate due to her age. She also swollen left lower extremity. This was also there at discharge and ultrasound was done showing no signs of a DVT. The swelling has continued to get worse since then. They also note that she seems to be more confused. She has been having difficulty walking male based on what I can gather from a the patient and the daughter they believe to difficulty walking is due to the leg becoming too heavy. Patient states she is not feeling short of breath this time she is denying chest pain. Denies abdominal pain and this you push on her hernia. Denies fevers, chills. Has not had much of an appetite since discharge. Denies diarrhea or constipation. Has not noticed any blood in her stool. Related Data Home Medications ?Medication ?Instructions ?Recorded ?Confirmed aspirin 81 mg chewable tablet 1 tab PO DAILY 09/11/21 12/23/23 calcium 600 mg (as 1 cap PO DAILY 05/16/22 12/23/23 carbonate)-vitamin D3 10 mcg (400 unit) capsule Cogniultra 2 cap PO DAILY 11/18/23 12/23/23 ipratropium 0.5 mg-albuterol 3 mg 3 ml inhalation QID shortness of 12/23/23 12/23/23 (2.5 mg base)/3 mL nebulization breath or wheezing soln nystatin 100,000 unit/gram topical 1 applic topical TID PRN 12/23/23 12/23/23 powder Previous Rx's ?Medication ?Instructions ?Recorded simvastatin 10 mg tablet 10 mg PO .Bedtime #90 tabs 03/13/23 omeprazole 40 mg capsule,delayed 40 mg PO DAILY #90 caps 09/26/23 release albuterol sulfate 90 mcg/actuation 2 puff inhalation Q4H PRN 10/10/23 aerosol inhaler bronchospasm #6.7 grams azithromycin 250 mg tablet 250 mg PO Q24H #2 tabs 12/26/23 cefdinir 300 mg capsule 300 mg PO BID #6 caps 12/26/23 losartan 25 mg tablet 25 mg PO DAILY #30 tabs 12/26/23 sodium chloride 1,000 mg soluble 1,000 mg PO TIDWM 30 days #90 tabs 12/26/23 tablet Allergies Allergy/AdvReac Type Severity Reaction Status Date / Time No Known Drug Allergies Allergy Verified 12/23/23 11:48 Review of Systems Status of ROS: Reports: 10 or more systems reviewed and unremarkable except as noted in History and below 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 cigarette smoker one half pack a day or less Code status is DNR DNI. Daughters are healthcare power of ip technology transactions attorney What is your current living situation?: I presently have a place to live Problems where you live: no known problems Problems where you live details: N/A In the past 12 months, utilities in danger of being shut off: no In past 12 months, lack of transportation kept you from medical appts, meetings, work, or getting things needed for daily living: no In the past 12 mos, have been you worried that your food would run out before you had money to buy more?: never true In the past 12 mos, the food you bought just didn't last and you didn't have money to buy more?: never true Are you following a diet prescribed by a doctor: No Are you following a special diet: No Highest level of school completed/degree received: GED or equivalent Smoking Status: Current some day smoker What tobacco products do you use: cigarettes Smoking packs per day: 0.25 Smoking cigarettes per day: 5.0 Do you use any of these nicotine containing products: None Second hand tobacco smoke exposure: Yes How often do you have a drink containing alcohol: never AUDIT-C Alcohol total score: 0 Non-prescribed substance use: denies use Caffeine: Yes (4 cups coffee daily and one soda) How often does anyone, including family, friends and others, physically hurt you: never How often does anyone, including family, friends and others, insult or talk down to you: never How often does anyone, including family, friends and others, threaten you with harm: never How often does anyone, including family, friends and others, scream or curse at you: never Little interest or pleasure in doing things: several days Feeling down, depressed, or hopeless: not at all service: No Exam Narrative: Exam Narrative: Const: Well-nourished, Well-developed, in moderate distress Eyes: PERRL, no conjunctival injection, and symmetrical lids HENT: Atraumatic external nose and ears. Moist mucous membranes. Neck: Symmetric, trachea midline, No thyromegaly. CVS: RRR, No murmurs or gallops. Peripheral pulses 2+ and equal in all extremities RESP: Unlabored respiratory effort. Very mild wheezes heard on exam GI: Ventral hernia with a bluish discoloration over at this tender to the touch and firm. Extremities:Extremities w/o deformity, Normal Active ROM, notably swollen left lower extremity was +3 pitting edema Skin: Warm, Dry. No rashes or lesions. Neuro: Normal Muscle tone, No focal neurological deficits. Psych: Awake, Alert, & Oriented x3. Appropriate mood and affect. Const: Vital Signs, click to edit/add: Vital Signs - 24 hr 12/28/23 19:25 12/28/23 19:43 12/28/23 19:44 Temperature 98.3 F Pulse Rate 111 H 111 H Pulse Rate [Right Pulse Oximeter] 112 H Respiratory Rate 16 24 Respiratory Rate [ Upper Abdomen] Blood Pressure 84/39 L Blood Pressure [Le ft Upper Arm] 84/53 L Pulse Oximetry 89 92 92 Oxygen Delivery Me thod Room Air Room Air 12/28/23 19:45 12/28/23 20:18 12/28/23 20:19 Temperature Pulse Rate 112 H 89 95 Pulse Rate [Right Pulse Oximeter] Respiratory Rate 24 Respiratory Rate [ Upper Abdomen] Blood Pressure 114/60 Blood Pressure [Le ft Upper Arm] Pulse Oximetry 93 94 94 Oxygen Delivery Me thod Room Air 12/28/23 20:25 12/28/23 20:29 12/28/23 20:30 Temperature Pulse Rate 87 78 Pulse Rate [Right Pulse Oximeter] Respiratory Rate Respiratory Rate [ Upper Abdomen] 22 Blood Pressure 113/53 L Blood Pressure [Le ft Upper Arm] Pulse Oximetry 92 94 Oxygen Delivery Me thod 12/28/23 20:32 12/28/23 20:45 12/28/23 20:47 Temperature Pulse Rate 94 102 H 89 Pulse Rate [Right Pulse Oximeter] Respiratory Rate Respiratory Rate [ Upper Abdomen] Blood Pressure 113/59 L 133/61 Blood Pressure [Le ft Upper Arm] Pulse Oximetry 92 94 90 Oxygen Delivery Me thod 12/28/23 21:00 12/28/23 21:02 12/28/23 21:15 Temperature Pulse Rate 84 88 94 Pulse Rate [Right Pulse Oximeter] Respiratory Rate 24 Respiratory Rate [ Upper Abdomen] Blood Pressure 124/55 L Blood Pressure [Le ft Upper Arm] Pulse Oximetry 87 L 86 L 84 L Oxygen Delivery Me thod Room Air Course Vital Signs Vital signs: Initial Vital Signs Temperature 98.3 F 12/28/23 19:25 Temperature Source Temporal Artery Scan 12/28/23 19:25 Pulse Rate 112 H 12/28/23 19:25 Pulse Rhythm Regular 12/28/23 19:25 Respiratory Rate 16 12/28/23 19:25 Blood Pressure 84/53 L 12/28/23 19:25 Blood Pressure Mean 63 L 12/28/23 19:25 Blood Pressure Position Sitting 12/28/23 19:25 Pulse Oximetry 89 12/28/23 19:25 Oxygen Delivery Method Room Air 12/28/23 19:25 Vital Signs Temperature 98.3 F 12/28/23 19:25 Pulse Rate 112 H 12/28/23 19:25 Respiratory Rate 16 12/28/23 19:25 Blood Pressure 84/53 L 12/28/23 19:25 Pulse Oximetry 89 12/28/23 19:25 Oxygen Delivery Method Room Air 12/28/23 19:25 Temperature 98.3 F 12/28/23 19:25 Pulse Rate 94 12/28/23 21:15 Respiratory Rate 24 12/28/23 21:02 Blood Pressure 124/55 L 12/28/23 21:02 Pulse Oximetry 84 L 12/28/23 21:15 Oxygen Delivery Method Room Air 12/28/23 21:02 Medications Administered Medications: Generic Name Dose Route Start Last Admin Trade Name Freq PRN Reason Stop Dose Admin Albuterol/Ipratropium 1 neb 12/28/23 21:09 12/28/23 21:13 Iprat-Albut 0.5-2.5 Mg/3 Ml Neb IH 12/28/23 21:10 1 neb ONCE ONE Administration Discontinued Medications Generic Name Dose Route Start Last Admin Trade Name Freq PRN Reason Stop Dose Admin Sodium Chloride 1,000 mls @ 1,000 mls/hr 12/28/23 19:45 12/28/23 21:13 0.9 % Sodium Chloride 1000 Ml IV 12/28/23 20:44 1,000 mls/hr .Q1H RAKAN Administration Medical Decision Making MDM Narrative Medical decision making narrative: Patient is a 83-year-old female presenting for weakness and hypotension. On my initial exam I noticed hernia as very suspicious for strangulated hernia unless I had her go to CT scan immediately. I do not believe her creatinine level would change my opinion as a believe is important she get the CT scan. Also his CTA of the chest as she has this swollen left leg and is satting between 88-91%. She does have COPD so this could be in normal level for her but I believe is important to get this CT scan considering she is also hypotensive. Will start CT scan the head for altered mental status. A ordered 1 L of normal saline along with an EKG, troponin, CBC, CMP, magnesium, lactate, urinalysis. Patient's blood pressure started improving before she even received any of the fluid. I believe part of this is not she is lying flat her blood pressures are getting better. She went immediately to CT scan though due to those initial low blood pressures and a concern for strangulated hernia. When we were able to view the CTs the hernia appears to be only fat containing. I spoke to the on-call general surgeon, Dr. Martinez, who recommended I tried to reduce the hernia. I was able to reduce a large amount of the hernia and now the color has improved significantly and she is no longer tender to the touch. I cannot say for sure if I reduced all of it but there is a great amount of improvement. CT scans returned showing persistent but improved pneumonitis, large supraumbilical midline ventral hernia as previously mentioned. Is also findings suspicious of a volvulus and/or possible internal hernia in the right lower quadrant. Also partial small-bowel obstruction is possible. She is having very minimal right lower quadrant tenderness in this seems less likely at this time. I spoke to the the general surgeon again because the family states patient has previously told she is not a good candidate for surgery and [place]. After being to further evaluate notes they wave a fine anesthesia note stated they very difficult time doing extubation on her during ACS standard shoulder procedure back in 2021. Considering this is also recommended she transfer. I spoke to general surgeon, Dr. Evans, was agreeable for the patient to be transferred but states he is not sure of any surgeries but need to be done when she calms. I informed family of this and they are understanding. Denies hospitalist accepted her for transfer. Lab Data Labs: Lab Results 12/28/23 12/28/23 Range/Units 19:40 19:54 WBC 17.40 H (4.50-11.00) K/uL RBC 3.95 L (4.00-5.20) m/uL Hgb 12.2 (12.0-16.0) gm/dL Hct 37.4 (33.0-51.0) % MCV 95 (80-100) fL MCH 31 (26-34) pg MCHC 33 (32-36) gm/dL RDW Coeff of Sander 13.3 (11.5-15.5) % Plt Count 180 (140-440) K/uL Neut % (Auto) 85.0 H (42.0-72.0) % Lymph % (Auto) 5.6 L (20-44) % Wise % (Auto) 8.7 (0.0-11.0) % Eos % (Auto) 0.1 (0.0-7.0) % Baso % (Auto) 0.0 (0.0-3.0) % Neut # (Auto) 14.80 H (1.7-7.0) K/uL Lymph # (Auto) 1.00 (0.90-2.90) K/uL Wise # (Auto) 1.50 H (0.00-0.90) K/UL Eos # (Auto) 0.00 (0.00-0.50) K/uL Baso # (Auto) 0.00 (0.00-0.30) K/uL Abs Immat Gran (auto) 0.10 (0.00-0.30) K/uL Imm/Tot Granulo (auto) 0.6 % Sodium 130 L (135-149) mmol/L Potassium 3.7 (3.6-5.1) mmol/L Chloride 100 (96-114) mmol/L Carbon Dioxide 21 (20-32) mmol/L Anion Gap 9 (7-15) mEq/L BUN 27 (7-30) mg/dL Creatinine 1.4 (0.5-1.5) mg/dL Estimated Creat Clear 29.50 Estimated GFR 38 ml/min Glucose 122 H (60-115) mg/dL Lactate 1.5 (0.5-1.9) mmol/L Calcium 10.1 (8.4-10.6) mg/dL Magnesium 1.9 (1.5-2.6) mg/dL Total Bilirubin 1.1 (0.1-1.5) mg/dL AST 33 (12-35) U/L ALT 33 (4-35) U/L Alkaline Phosphatase 67 (40-150) U/L Total Protein 7.4 (6.0-8.3) g/dL Albumin 3.8 (3.3-5.0) g/dL POC Troponin I 0.04 (0.01-0.04) ng/ml Imaging Data CTA chest and CT abdomen pelvis: Attestation: I have reviewed the pertinent imaging results. Radiologist's impression: 1. Persistent but improved pneumonitis. No other acute findings or significant changes in the chest. 2. Large supraumbilical midline ventral hernia contains fat with new fluid and inflammation. No bowel involvement regarding the hernia. 3. Findings suspicious for a volvulus and/or possible internal hernia in the right lower quadrant. Partial small bowel obstruction is possible but not definite. There is also fluid and gaseous distention of the ascending and transverse colon. Please note that all CT scans at this facility use dose modulation, iterative reconstruction, and/or weight-based dosing when appropriate to reduce radiation dose to as low as reasonably achievable. Dictated by Benigno Mccauley MD @ 12/28/2023 9:00:[address] scan - head: Attestation: I have reviewed the pertinent imaging results. Radiologist's impression: No acute intracranial hemorrhage or mass effect. Please note that all CT scans at this facility use dose modulation, iterative reconstruction, and/or weight-based dosing when appropriate to reduce radiation dose to as low as reasonably achievable. Dictated by Tai Levine MD @ 12/28/2023 8:47:52 PM ECG Data Attestation: I personally reviewed and interpreted this ECG as follows: Interpretation: Sinus tachycardia with a rate of 96 beats per minute, normal intervals, normal axis, no ST or T-wave abnormalities. Repeat the 2 hours later that appears very similar Discharge Plan Discharge Clinical Impression: Incarcerated hernia, Localized swelling of left lower leg, Pneumonitis Discharge Location: [facility] Condition: Improved Prescriptions: No Action aspirin 81 mg tablet,chewable 1 tab PO DAILY calcium carbonate-vitamin D3 600 mg-10 mcg (400 unit) capsule 1 cap PO DAILY Cogniultra 2 cap PO DAILY ipratropium-albuterol 0.5 mg-3 mg(2.5 mg base)/3 mL solution for nebulization 3 ml inhalation QID nystatin 100,000 unit/gram powder 1 applic topical TID PRN azithromycin 250 mg Tablet 250 mg PO Q24H Qty: 2 0RF Taper: Z-[id number] 250 mg Q24H for 2 Days and 0 Hour losartan 25 mg tablet 25 mg PO DAILY Qty: 30 2RF cefdinir 300 mg capsule 300 mg PO BID Qty: 6 0RF sodium chloride 1,000 mg Tablet,Soluble 1,000 mg PO TIDWM 30 Days Qty: 90 0RF simvastatin 10 mg tablet 10 mg PO .Bedtime Qty: 90 2RF omeprazole 40 mg capsule,delayed release(DR/EC) 40 mg PO DAILY Qty: 90 0RF albuterol sulfate 90 mcg/actuation HFA aerosol inhaler 2 puff inhalation Q4H PRN (Reason: bronchospasm) Qty: 6.7 2RF Rx Instructions: as needed Follow Up/Referrals: Saba Lakhani MD [Primary Care Provider] -
[2023-12-28 19:59] LABS: Lactate Sepsis w/Reflex* 1.5 mmol/L (0.5-1.9)
--- OUTSIDE RECORDS SUMMARY | 2023-12-28 19:59 | XMS_ITS | Clinical Summary ---
Author Organization [facility] Address [place], [place] [address] Care Team Providers Care Semiconductor Processing Technician Name Role Phone Navneet Curran MD Primary Care Provider [phone] Allergies Active Allergy Reactions Criticality Noted Date [...] Comments Blood Pressure 118/79 04/17/2020 8:37 AM TIMBER KILLER Pulse 99 04/17/2020 8:37 AM TIMBER KILLER Temperature 36.7 ??C (98 ??F) 04/17/2020 8:37 AM TIMBER KILLER Respiratory Rate 16 04/17/2020 8:37 AM TIMBER KILLER Oxygen Saturation 95% 04/17/2020 8:37 AM TIMBER KILLER Inhaled Oxygen Concentration - - Weight 89.6 kg (197 lb 9.6 oz) 04/17/2020 8:37 A M TIMBER KILLER Height 164 cm (5' 4.57) 04/17/2020 8:37 AM TIMBER KILLER Body Mass Index 33.32 04/17/2020 8:37 AM TIMBER KILLER Plan of Treatment Health Maintenance Due Date [...] Phone Address Type [employer] [id number] 2019-Present [address] [place] [address] Care Teams Semiconductor Processing Technician Relationship Specialty Start Date End Date Navneet Curran MD [address] [place] [id number] PCP - General Family Practice 03/19/18
[2023-12-28 20:00] LABS: Eosinophils Percent Auto 0.1 % (0.0-7.0); Hematocrit 37.4 % (33.0-51.0); Hemoglobin* 12.2 gm/dL (12.0-16.0); Immature Granulocytes Pct Auto 0.6 %; Lymphocytes Percent Auto 5.6 % (20-44); Mean Corpuscular HGB Conc 33 gm/dL (32-36); Mean Corpuscular Hemoglobin 31 pg (26-34); Mean Corpuscular Volume 95 fL (80-100); Monocytes Percent Auto 8.7 % (0.0-11.0); Platelet Count* 180 K/uL (140-440); RDW Coefficient of Variation % 13.3 % (11.5-15.5); Red Blood Count 3.95 m/uL (4.00-5.20)
[2023-12-28 20:02] LABS: Slide Review Reflex No
[2023-12-28 20:04] LABS: Troponin, Point-of-Care* 0.04 ng/ml (0.01-0.04)
[2023-12-28 20:15] LABS: Albumin* 3.8 g/dL (3.3-5.0); Chloride* 100 mmol/L (96-114); Potassium* 3.7 mmol/L (3.6-5.1); Sodium* 130 mmol/L (135-149)
[2023-12-28 20:17] LABS: Creatinine* 1.4 mg/dL (0.5-1.5); Estimated Glomerular Filt Rate 38 ml/min
[2023-12-28 20:18] LABS: Alanine Aminotransferase* 33 U/L (4-35); Alkaline Phosphatase* 67 U/L (40-150); Anion Gap 9 mEq/L (7-15); Aspartate Amino Transferase* 33 U/L (12-35); Bilirubin Total* 1.1 mg/dL (0.1-1.5); Blood Urea Nitrogen* 27 mg/dL (7-30); Calcium* 10.1 mg/dL (8.4-10.6); Carbon Dioxide* 21 mmol/L (20-32); Glucose* 122 mg/dL (60-115); Magnesium* 1.9 mg/dL (1.5-2.6); Total Protein* 7.4 g/dL (6.0-8.3)
[2023-12-28] MEDS: IPRAT-ALBUT 0.5-2.5 MG/3 ML NEB 1 NEB IH (21:13)
[2023-12-28] MEDS: 0.9 % SODIUM CHLORIDE 1000 ml 1,000 ML IV (21:13)
== END 2023-12-28 23:41 | disposition short-term general hospital (02) ==
PROVIDERS: Emergency Provider Student in an Organized Health Care Education/Training Program; PCP Internal Medicine
DX: J98.4 Other disorders of lung (principal); K46.0 Unspecified abdominal hernia with obstruction, without gangrene; R22.42 Localized swelling, mass and lump, left lower limb
CPT/HCPCS: 36415; 70450; 71275; 74177; 80053; 81001; 83605; 83735; 84484; 85025; 93005; 99284; 99285; J7030; Q9967

== ENCOUNTER 2023-12-28 23:19 | Outpatient (CLI) | payer MEDICARE, SELFPAY ==
--- OUTSIDE RECORDS SUMMARY | 2024-01-03 14:13 | XMS_ITS | Clinical Summary ---
Author Organization [employer] [facility] s & [facility] Address [place], [place] [address] Care Team Providers Care Histology Specialist Name Role Phone Saba Lakhani MD Primary Care Provider [phone] [facility] [place] Unavailable [phone] Allergies Active Allergy Reactions Criticality Noted Date Comments Adhesive Tape-Silicones Itching 08/22/2016 Uses paper tape Medications Medication Sig Dispensed Refills Start Date End Date Status simvastatin (ZOCOR) 10 mg tablet Take 10 mg by mouth at bedtime. Active albuterol (PROAIR RESPICLICK) 90 mcg/actuation INHALER Inhale 1-2 Puffs by mouth 4 times daily if needed (shortness of breath). 0 9 Active albuterol-ipratro pium (DUONEB) (2.5-0.5 mg) in 3 mL NEBULIZATION solution Inhale 1 Neb via a nebulizer 4 times daily if needed. 1 Active calcium carbonate-vitamin D3, 600 mg-400 unit, (Calcium with Vitamin D) 600 mg-10 mcg (400 unit) tablet Take 1 Tablet by mouth once daily with a meal. Active sodium chloride 1,000 mg soluble tablet Take 1,000 mg by mouth three times daily. Active Patients Unique Medication From Home Cogni Ultra Take 2 capsules by mouth once daily Active losartan (COZAAR) 25 mg tablet Take 25 mg by mouth once daily. 4 Active aspirin (ECOTRIN) 81 mg enteric coated tabletIndications :Status post cardiac surgery Take 1 Tablet (81 mg) by mouth once daily with a meal. DO NOT TAKE until you complete your course of Plavix (Clopidogrel) 5 Active clopidogreL (PLAVIX) 75 mg tabletIndications :DVT, lower extremity, proximal, acute, left (HC) Take 1 Tablet (75 mg) by mouth once daily. 30 Tablet 2 4 03/31/19 25 Active rivaroxaban (XARELTO) 15 mg tab tabletIndications :deep venous thrombosis Take 1 Tablet (15 mg) by mouth two times daily with meals for 21 days. BEFORE STARTING 20MG TABS 42 Tablet 4 01/22/20 24 Active rivaroxaban (XARELTO) 20 mg tabletIndications :DVT, lower extremity, proximal, acute, left (HC) Take 1 Tablet (20 mg) by mouth once daily with evening meal. AFTER COMPLETING 15MG TABS 30 Tablet 4 Active lisinopril (PRINIVIL; ZESTRIL) 20 mg tablet Take 20 mg by mouth once daily. 12/29/19 Discontinued(*Pa tient states no longer taking) ASPIRIN ORAL Take 81 mg by mouth once daily. 12/29/19 Discontinued(Pha rmacist change per medication history (E-cancel not sent)) FLUoxetine (SARAFEM) 20 mg tablet Take 1 tablet by mouth every morning. 0 9 12/29/19 Discontinued(*Pa tient states no longer taking) omeprazole (PRILOSEC) 40 mg Delayed-Release capsule Take 1 capsule by mouth once daily. 0 9 01/01/20 Discontinued(*IP Discontinued) multivitamin (MULTIPLE VITAMINS) tablet Take 1 tablet by mouth once daily. 0 9 12/29/19 24 Discontinued(*Pa tient states no longer taking) estradioL (ESTRACE) 0.1 mg/g vaginal cream 1 12/29/19 Discontinued(*Pa tient states no longer taking) fluticasone propion-salmetero L (ADVAIR) 500-50 mcg/Dose diskus inhaler 1 12/29/19 Discontinued(*Pa tient states no longer taking) nystatin powder (MYCOSTATIN) powder 1 12/29/19 24 Discontinued(*Pa tient states no longer taking) aspirin (ECOTRIN) 81 mg enteric coated tablet Take 81 mg by mouth once daily with a meal. 01/01/20 24 Discontinued Active Problems Problem Noted Date Diagnosed Date COPD (chronic obstructive pulmonary disease) Smoking 12/29/2023 Confusion 12/29/2023 Swelling of left lower extremity 12/29/2023 Incarcerated ventral hernia 12/29/2023 Hyponatremia 12/29/2023 Acute deep vein thrombosis ( DVT) of femoral vein of left lower extremity 12/29/2023 DVT, lower extremity, proximal, acute, left 12/09 Breast cancer in female 04/17/2020 S/P bilateral mastectomy 04/17/2020 Colitis 04/17/2020 Tubular adenoma of colon 04/17/2020 Hypercholesteremia 10/26/2012 Osteopenia of multiple sites 04/09/2012 Hypertension 03/20/2011 Personal history of colonic polyps 06/13/2010 Overview (05/02/2020): Colonoscopy 06/2010 normal repeat in 5 years Colonoscopy 04/2020 polyp, repeat in 7 years Status post cardiac surgery 04/26/2009 S/P breast lumpectomy 04/26/2009 Encounters Date Type Department Care Team Description 01/02/2024 Home Care Visit [facility] [address] [place] [address] Babita Mejia RN CARE COORDINATION 12/29/2023 12:56 AM CDT - 01/01/2024 5:15 PM CDT Hospital Encounter [facility] [address] [place] [address] s, Hospitalist [facility] Rene Purvis MBBS Loc, Nathaniel Wasserman MD DVT, lower extremity, proximal, acute, left (HC) (Primary Dx); Status post cardiac surgery Discharge Disposition: Home Health 12/29/2023 Travel from Last 3 Months Immunizations Name Administration Dates Next Due Influenza [...] of Communication with Friends and Fami ly 0 12/29/2023 Financial Resource Strain Answer Date R ecorded Difficulty of Paying Living Expenses 3 12/29/2023 Difficulty of Paying Living Expenses Not on file 12/29/2023 Food Insecurity Answer Date Recorded Do you worry your food will run out before you are able to buy more? 1 12/29/2023 Transportation Needs Answer Date Record ed Lack of Transportation (Medical) 1 12/29/2023 Housing Stability Answer Date Recorded What is your housing situation today? 1 12/29/2023 Sex and Gender Information Value Date Recorded Sex Assigned at Not on file Gender Identity Not on file Sexual Orientation Not on file Obstetrics History Last Filed Vital Signs Vital Sign Reading Time Taken Comments Blood Pressure 142/66 01/01/2024 8:21 AM CDT Pulse 77 01/01/2024 8:21 AM CDT Temperature 36.7 ??C (98.1 ??F) 01/01/2024 8:21 AM CD T Respiratory Rate 16 01/01/2024 8:21 AM CDT Oxygen Saturation 90% 01/01/2024 2:47 PM CDT Inhaled Oxygen Concentration - - Weight 74.4 kg (164 lb 0.4 oz) 01/01/2024 12:00 AM CDT Height 164 cm (5' 4.57) 01/01/2024 12:00 AM CDT Body Mass Index 27.66 01/01/2024 12:00 AM CDT Plan of Treatment Health Maintenance Due Date Last Done Comments Medicare Wellness for age 65+ 2007 Zoster (shingles) series for age 50+ (1 of 2) 05/22/2012 03/27/2012 RSV vaccine for adults or (1 - 1-dose 75+ series) 2017 BMI (ht and wt on same day) for age 18+ 04/17/2021 04/17/2020, 08/22/2016 Depression screening for age 12+ 04/17/2021 04/17/19, 04/12/2020 COVID-19 vaccine series ( season) 2023 12/24/2022, 01/22/2022, 02/08/2021, Additional history exists Influenza for age 65+ 11/09/2023 12/30/2017 , 12/20/2016, 12/20/2016, Additional history exists Tetanus booster 01/21/2028 01/20/2018, 05/2007, 01/11/2008 Tdap Completed 01/11/2008 Pneumococcal series for age 65+ Completed 5, 09/05/2011 DEXA/DXA scan for age 65+ Completed 09/14/2018 Procedures Procedure Name Priority Date/Time Associated Diagnosis Comments APTT Early AM 01/01/2024 6:42 AM CDT CREATININE Early AM 01/01/2024 6:41 AM CDT SODIUM Early AM 01/01/2024 6:41 AM CDT POTASSIUM Early AM 01/01/2024 6:41 AM CDT HEMATOCRIT Early AM 01/01/2024 6:41 AM CDT HEMOGLOBIN Early AM 01/01/2024 6:41 AM CDT PLATELET COUNT Early AM 01/01/2024 6:41 AM CDT APTT STAT 01/01/2024 12:39 AM CDT CLOSTRIDIOIDES DIFFICILE TOXIN PCR Today 12/31/2023 9:00 PM CDT APTT Timed 12/31/2023 4:02 PM CDT APTT Timed 12/31/2023 9:13 AM CDT BASIC METABOLIC PANEL Early AM 12/31/2023 9:13 AM CDT HEMATOCRIT Early AM 12/31/2023 9:13 AM CDT HEMOGLOBIN Early AM 12/31/2023 9:13 AM CDT PLATELET COUNT Early AM 12/31/2023 9:13 AM CDT APTT Timed 12/31/2023 2:11 AM CDT APTT STAT 12/30/2023 5:52 PM CDT IR VENOGRAM LOWER EXTREMITY LEFT Routine 12/30/2023 3:25 PM CDT APTT Timed 12/30/2023 7:48 AM CDT WHITE BLOOD COUNT Early AM 12/30/2023 7:4 8 AM CDT BASIC METABOLIC PANEL Early AM 12/30/2023 7:48 AM CDT PROTIME-INR Early AM 12/30/2023 7:48 AM CDT HEMATOCRIT Early AM 12/30/2023 7:48 AM CDT HEMOGLOBIN Early AM 12/30/2023 7:48 AM CDT PLATELET COUNT Early AM 12/30/2023 7:48 AM CDT APTT Timed 12/30/2023 12:35 AM CDT CREATININE HERNANDEZ 12/29/2023 4:53 PM CDT BUN HERNANDEZ 12/29/2023 4:53 PM CDT HEMATOCRIT HERNANDEZ 12/29/2023 4:53 PM CDT HEMOGLOBIN HERNANDEZ 12/29/2023 4:53 PM CDT PLATELET COUNT HERNANDEZ 12/29/2023 4:53 PM CDT APTT HERNANDEZ 12/29/2023 4:53 PM CDT PROTIME-INR HERNANDEZ 12/29/2023 4:[address] VENOGRAM PELVIS W Routine 12/29/2023 4:39 PM CDT XR ABDOMEN 2 VIEW FLAT AND UPRIGHT OR DECUBITUS HERNANDEZ 12/29/2023 2:49 PM CDT US VENOUS LOWER EXTREMITY LEFT Routine 12/29/2023 12:23 PM CDT EKG 12 LEAD HERNANDEZ 12/29/2023 8:44 AM CDT CBC W PLT NO DIFF Today 12/29/2023 2:1 3 AM CDT BASIC METABOLIC PANEL Today 12/29/2023 2:12 AM CDT SCAN-BONE DENSITOMETRY DEXA 09/14/2018 12:00 AM CDT from Last 3 Months or Most Recently Relevant to Health Maintenance Results * (ABNORMAL) APTT (01/01/2024 6:42 AM CDT) Only the most recent of9 resultswithin the time period is included. APTT 85(H) 25 - 36 sec 01/01/2024 7:27 AM CDT [facility] Blood BLOOD SPECIMEN / Unknown Venipuncture / Unknown 01/01/2024 6:42 AM CDT 01/01/2024 7:08 AM CDT [facility] - 01/01/2024 7:27 AM CDT Therapeutic Range: 59-89 seconds Nathaniel Alvarez MD HEMATOLOGY Performing Organization Address [facility] Phone Number [facility] SENDOUT INTERNAL ZIP [phone] [place] [phone] * PLATELET COUNT (01/01/2024 6:41 AM CDT) Only the most recent of4 resultswithin the time period is included. PLATELET COUNT 197 140 - 440 thou/cu mm 01/01/2024 7:15 AM CDT [facility] MPV 9.1 6.5 - 11.0 fL 01/01/2024 7:15 AM CDT [facility] Blood BLOOD SPECIMEN / Unknown Venipuncture / Unknown 01/01/2024 6:41 AM CDT 01/01/2024 7:08 AM CDT [facility] - 01/01/2024 7:15 AM CDT Every morning while on IV heparin. Every morning while on IV heparin. Necessary every morning while on IV heparin. Nathaniel Alvarez MD HEMATOLOGY Performing Organization Address [facility]/ZIP Co de Phone Number [facility] SENDOUT INTERNAL ZIP [phone] [place] [phone] * (ABNORMAL) HEMOGLOBIN (01/01/2024 6:41 AM CDT) Only the most recent of4 resultswithin the time period is included. HEMOGLOBIN 9.6(L) 12.0 - 16.0 g/dL 01/01/2024 7:15 AM CDT [facility] MCV 93 80 - 100 fL 01/01/2024 7:15 AM CDT [facility] Blood BLOOD SPECIMEN / Unknown Venipuncture / Unknown 01/01/2024 6:41 AM CDT 01/01/2024 7:08 AM CDT [facility] - 01/01/2024 7:15 AM CDT Every morning while on IV heparin. Every morning while on IV heparin. Necessary every morning while on IV heparin. Nathaniel Alvarez MD HEMATOLOGY [facility] SENDOUT INTERNAL ZIP [phone] [place] [phone] * (ABNORMAL) HEMATOCRIT (01/01/2024 6:41 AM CDT) Only the most recent of4 resultswithin the time period is included. Pathologist [facility] [place] HEMATOCRIT 29.4(L) 33.0 - 51.0 % 01/01/2024 7:15 AM CDT [facility] Blood BLOOD SPECIMEN / Unknown Venipuncture / Unknown 01/01/2024 6:41 AM CDT 01/01/2024 7:08 AM CDT [facility] - 01/01/2024 7:15 AM CDT Every morning while on IV heparin. Every morning while on IV heparin. Necessary every morning while on IV heparin. Nathaniel Alvarez MD HEMATOLOGY [facility] SENDOUT INTERNAL ZIP [phone] [place] [phone] * (ABNORMAL) SODIUM (01/01/2024 6:41 AM CDT) Pathologist [facility] SODIUM 133(L) 136 - 145 mmol/L 01/01/2024 7:33 AM CDT [facility] Blood BLOOD SPECIMEN / Unknown Venipuncture / Unknown 01/01/2024 6:41 AM CDT 01/01/2024 7:08 AM CDT Nathaniel Alvarez MD CHEMISTRY [facility] SENDOUT INTERNAL [address] [phone] [place] [address] * (ABNORMAL) POTASSIUM (01/01/2024 6:41 AM CDT) POTASSIUM 3.1(L) 3.5 - 5.1 mmol/L 01/01/2024 7:33 AM CDT [facility] Blood BLOOD SPECIMEN / Unknown Venipuncture / Unknown 01/01/2024 6:41 AM CDT 01/01/2024 7:08 AM CDT Nathaniel Alvarez MD CHEMISTRY Performing Organization Address [facility]/ZIP Co de Phone Number [facility] SENDOUT INTERNAL ZIP [phone] [place] [phone] * (ABNORMAL) CREATININE (01/01/2024 6:41 AM CDT) Only the most recent of2 resultswithin the time period is included. eGFR 70(L) >90 mL/min/1.7 3m2 01/01/2024 7:33 AM CDT [facility] Comment:As of 2021, eG FR is calculated by the CKD-EPI creatinine equation without race adjustment. ??eGFR can be influenced by muscle mass, exercise, and diet. ??The reported eGFR is an estimation only and is only applicable if the renal function is stable. CREATININE 0.84 0.50 - 0.90 mg/dL 01/01/2024 7:33 AM CDT [facility] Blood BLOOD SPECIMEN / Unknown Venipuncture / Unknown 01/01/2024 6:41 AM CDT 01/01/2024 7:08 AM CDT Nathaniel Alvarez MD CHEMISTRY [facility] SENDOUT INTERNAL ZIP [phone] [place] [phone] * CLOSTRIDIOIDES DIFFICILE TOXIN PCR (12/31/2023 9:00 PM CDT) Pathologist [facility] CLOSTRIDIUM DIFFICILE PCR Negative 12/31/2023 11:11 PM CDT [facility] PRESUMPTIVE NAP1 STRAIN Negative 12/31/2023 11:11 PM T [facility] Stool STOOL SPECIMEN / Unknown Non-Blood / Unknown 12/31/2023 9:00 PM CDT 12/31/2023 10:22 PM CDT [facility] - 12/31/2023 11:11 PM CDT The NAP1 (027 or BI) strain is a hypervirulent strain. Detection may be useful for epidemiological purposes. Nathaniel Alvarez MD MICROBIOLOGY [facility] SENDOUT INTERNAL ZIP [phone] [place] [address] * (ABNORMAL) BASIC METABOLIC PANEL (12/31/2023 9:13 AM CDT) Only the most recent of3 resultswithin the time period is included. Pathologist [facility] SODIUM 134(L) 136 - 145 mmol/L 12/31/2023 9:43 AM [facility] POTASSIUM 3.3(L) 3.5 - 5.1 mmol/L 12/31/2023 9:43 AM [facility] CHLORIDE 101 98 - 107 mmol/L 12/31/2023 9:43 AM [facility] CO2,TOTAL 22 22 - 29 mmol/L 12/31/2023 9:43 AM [facility] ANION GAP 11 5 - 18 12/31/2023 9:43 AM [facility] GLUCOSE 79 70 - 99 mg/dL 12/31/2023 9:43 AM [facility] CALCIUM 8.2(L) 8.8 - 10.2 mg/dL 12/31/2023 9:43 AM [facility] BUN 21 8 - 23 mg/dL 12/31/2023 9:43 AM [facility] CREATININE 1.01(H) 0.50 - 0.90 mg/dL 12/31/2023 9:43 AM [facility] BUN/CREAT RATIO 21(H) 10 - 20 9:43 AM [facility] eGFR 56(L) >90 mL/min/1.7 3m2 12/31/2023 9:43 AM CDT [facility] Comment:As of 2021, eG FR is calculated by the CKD-EPI creatinine equation without race adjustment. ??eGFR can be influenced by muscle mass, exercise, and diet. ??The reported eGFR is an estimation only and is only applicable if the renal function is stable. Blood BLOOD SPECIMEN / Unknown Venipuncture / Unknown 12/31/2023 9:13 AM CDT 12/31/2023 9:20 AM CDT Nathaniel Alvarez MD CHEMISTRY [facility] SENDOUT INTER[address] Z[address] [phone] [place] [address] * IR VENOGRAM LOWER EXTREMITY LEFT (12/30/2023 3:25 PM CDT) Anatomical Region Laterality Modality KIDNEYS X-Ray Angiograph y, Other, Other 12/30/2023 3:25 PM CDT Impressions 12/30/2023 3:44 PM CDT 1. Extensive left lower extremity DVT successfully treated with mechanical thrombectomy. 2. 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 PLAN: 1. ??Flat bedrest for 2 hours. Then up as tolerated. 2. ??75 mg Plavix once daily for 3 months. 3. ??Left popliteal fossa pursestring woggle will be removed by IR in the morning. 4. ??Follow-up clinic visit and CTV pelvis in one month. Narrative 12/30/2023 3:44 PM CDT For Patients: As a result of the 21st Century Cures Act, medical imaging exams and procedure reports are released immediately into your electronic medical record. You may view this report before your referring provider. If you have questions, please contact your health care provider. [facility] EXAM: IR VENOGRAM LOWER EXTREMITY LEFT LEFT LOWER EXTREMITY VENOGRAM WITH CLOT TRIEVER MECHANICAL THROMBECTOMY AND ANGIOPLASTY WITH STENTING LOCATION: [facility] CLINICAL HISTORY: Left lower extremity DVT extending to the common iliac vein with imaging findings concerning for May Thurner syndrome. Patient presents for mechanical thrombectomy. PROCEDURES PERFORMED: 1. Ultrasound-guided venous access of the popliteal ??vein. 2. Lower extremity venography. 3. Mechanical thrombectomy of the left iliac and femoral popliteal veins. 4. IVUS evaluation of left iliac veins. 5. Placement of a 16 mm x 6 cm Abre stent. 6. Angioplasty of the common iliac vein and stent with 16 mm balloon. MODERATE SEDATION: IV fentanyl and Versed were administered intravenously for moderate sedation. Pulse oximetry, heart rate and blood pressure were continuously monitored by an independent trained observer. The physician spent 45 minutes of [id number] moderate sedation time with the patient. ADDITIONAL MEDICATIONS: 5000 units IV heparin CONTRAST: 50 mL Omnipaque 300 FLUOROSCOPIC TIME: 10.5 minutes CUMULATIVE AIR KERMA/DOSE: 690 mGy STERILE BARRIER TECHNIQUE: Maximal Sterile Barrier Technique Utilized: Cap AND mask AND sterile gown AND sterile gloves AND sterile full body drape AND hand hygiene AND skin preparation 2% chlorhexidine for cutaneous antisepsis (or acceptable alternative antiseptics). ?? Sterile Ultrasound Technique Utilized ?Sterile gel AND sterile probe covers. UNIVERSAL PROTOCOL: Standard universal protocol per facility guidelines was followed. See EMR for documentation. TECHNIQUE: Risks, benefits and alternatives were explained to the patient and written, informed consent was obtained. The patient was placed in the prone position on the angiography table. The left popliteal fossa was prepped and draped in the usual sterile fashion and anesthetized with 1% lidocaine. The popliteal vein was accessed under ultrasound guidance with a micropuncture system, followed by placement of a 16 [place] ClotTriever sheath. A Kumpe catheter was advanced through the sheath and into the iliac venous system over a guidewire. ??Lower extremity, iliac and IVC venography was performed through the sheath and catheter. A stiff guidewire was advanced through the diagnostic catheter and into the subclavian vein. The ClotTriever catheter was inserted through the sheath and 4 passes were made from the left common iliac vein to the popliteal vein. Post thrombectomy venography was performed. Next IVUS used to evaluate the left iliac veins and confirm external compression of the common iliac vein. Images were stored to the medical record. A 16 mm by 6 cm Abre stent was deployed in the common iliac vein and postdilated to 16 mm. Completion venography was performed. The catheter and sheath were removed and hemostasis was achieved with a pursestring suture woggle manual compression. There were no immediate complications. The patient tolerated the procedure well, and left the angiography suite in stable condition. ?? FINDINGS: Ultrasound was utilized to evaluate potential venous access sites. Initial ultrasound images of the popliteal vein show that it is incompletely compressible, and contains echogenic thrombus. Images obtained during percutaneous access show the needle within the vein. Ultrasound images have been archived permanently for documentation. There is extensive thrombus extending form the popliteal vein into the left common iliac vein. There is antegrade flow into the inferior vena cava. ??The IVC is patent, and contains no thrombus. IVUS demonstrates restored patency of the iliac veins with severe external compression of the left common iliac vein origin by the adjacent right common iliac artery The completion venogram demonstrates sabianism of antegrade flow in the femoral and iliac ??veins, and no significant residual thrombus or stenosis. The iliac stent is widely patent and in good position. Procedure Note Bassem Stauffer MD - 12/30/2023 For Patients: As a result of the Cures Act, medical imagingexams and procedure reports are released immediately into your electronicmedical record. You may view this report before your referring provider.If you have questions, please contact your health care provider. [facility] EXAM: IR VENOGRAM LOWER EXTREMITY LEFT LEFT LOWER EXTREMITY VENOGRAM WITH CLOT TRIEVER MECHANICAL THROMBECTOMYAND ANGIOPLASTY WITH STENTING LOCATION: [facility] CLINICAL HISTORY: Left lower extremity DVT extending to the common iliacvein with imaging findings concerning for May Thurner syndrome. Patientpresents for mechanical thrombectomy. PROCEDURES PERFORMED: 1. Ultrasound-guided venous access of the popliteal vein. 2. Lower extremity venography. 3. Mechanical thrombectomy of the left iliac and femoral poplitealveins. 4. IVUS evaluation of left iliac veins. 5. Placement of a 16 mm x 6 cm Abre stent. 6. Angioplasty of the common iliac vein and stent with 16 mm balloon. MODERATE SEDATION: IV fentanyl and Versed were administered intravenouslyfor moderate sedation. Pulse oximetry, heart rate and blood pressure werecontinuously monitored by an independent trained observer. The physicianspent 45 minutes of gohe-ut-jyik moderate sedation time with thepatient. ADDITIONAL MEDICATIONS: 5000 units IV heparin CONTRAST: 50 mL Omnipaque 300 FLUOROSCOPIC TIME: 10.5 minutes CUMULATIVE AIR KERMA/DOSE: 690 mGy STERILE BARRIER TECHNIQUE: Maximal Sterile Barrier Technique Utilized: CapAND mask AND sterile gown AND sterile gloves AND sterile full body drapeAND hand hygiene AND skin preparation 2% chlorhexidine for cutaneousantisepsis (or acceptable alternative antiseptics). Sterile UltrasoundTechnique Utilized ?Sterile gel AND sterile probe covers. UNIVERSAL PROTOCOL: Standard universal protocol per facility guidelineswas followed. See EMR for documentation. TECHNIQUE: Risks, benefits and alternatives were explained to the patient andwritten, informed consent was obtained. The patient was placed in theprone position on the angiography table. The left popliteal fossa wasprepped and draped in the usual sterile fashion and anesthetized with 1%lidocaine. The popliteal vein was accessed under ultrasound guidance witha micropuncture system, followed by placement of a 16 [place] ClotTrieversheath. A Kumpe catheter was advanced through the sheath and into the iliac venoussystem over a guidewire. Lower extremity, iliac and IVC venography wasperformed through the sheath and catheter. A stiff guidewire was advanced through the diagnostic catheter and intothe subclavian vein. The ClotTriever catheter was inserted through thesheath and 4 passes were made from the left common iliac vein to thepopliteal vein. Post thrombectomy venography was performed. Next IVUS used to evaluate the left iliac veins and confirm externalcompression of the common iliac vein. Images were [facility] to [facility]. A 16 mm by 6 cm Abre stent was deployed in the common iliac vein andpostdilated to 16 mm. Completion venography was performed. The catheter and sheath were removedand hemostasis was achieved with a pursestring suture woggle manualcompression. There were no immediate complications. The patient tolerated the procedurewell, and left the angiography suite in stable condition. FINDINGS: Ultrasound was utilized to evaluate potential venous access sites. Initialultrasound images of the popliteal vein show that it is incompletelycompressible, and contains echogenic thrombus. Images obtained duringpercutaneous access show the needle within the vein. Ultrasound imageshave been archived permanently for documentation. There is extensive thrombus extending form the popliteal vein into theleft common iliac vein. There is antegrade flow into the inferior venacava. The IVC is patent, and contains no thrombus. IVUS demonstrates restored patency of the iliac veins with severe externalcompression of the left common iliac vein origin by the adjacent rightcommon iliac artery The completion venogram demonstrates sabianism of antegrade flow in thefemoral and iliac veins, and no significant residual thrombus orstenosis. The iliac stent is widely patent and in good position. IMPRESSION: 1. Extensive left lower extremity DVT successfully treated with mechanicalthrombectomy. 2. Compression of the left common iliac vein origin consistent with MayThurner syndrome, successfully treated with a 16 mm Abre stent. PLAN: 1. Flat bedrest for 2 hours. Then up as tolerated. 2. 75 mg Plavix once daily for 3 months. 3. Left popliteal fossa pursestring woggle will be removed by IR in themorning. 4. Follow-up clinic visit and CTV pelvis in one month. Cindy Dawn TOBACCO STEMMER MACHINE IR * WHITE BLOOD COUNT (12/30/2023 7:48 AM CDT) WHITE BLOOD COUNT 10.5 4.5 - 11.0 thou/cu mm 12/30/2023 8:43 AM CDT [facility] NRBC 0.0 % 12/30/2023 8:43 AM CDT [facility] ABS NRBC 0.0 thou /cu mm 12/30/2023 8:43 AM CDT [facility] Blood BLOOD SPECIMEN / Unknown Venipuncture / Unknown 12/30/2023 7:48 AM CDT 12/30/2023 8:35 AM CDT Narrative [facility] - 12/30/2023 8:43 AM CDT Every morning while on IV heparin. Every morning while on IV heparin. Necessary every morning while on IV heparin. Nathaniel Alvarez MD HEMATOLOGY [facility] [employer] [facility] [id number] [place] [address] * (ABNORMAL) Protime INR (12/30/2023 7:48 AM CDT) Only the most recent of2 resultswithin the time period is included. INR 1.3(H) <1.3 12/30/2023 9:00 AM CDT [facility] PROTIME 15.2(H) 10.6 - 12.4 sec 12/30/2023 9:00 AM CDT [facility] Blood BLOOD SPECIMEN / Unknown Venipuncture / Unknown 12/30/2023 7:48 AM CDT 12/30/2023 8:35 AM CDT Narrative [facility] - 12/30/2023 9:00 AM CDT ?Therapeutic Range 2.0-3.0 for most anticoagulated patients 2.5-3.5 or 4.0 for high risk patients The INR is only used for patients on stable oral anticoagulant therapy. It makes no significant contribution to the diagnosis or treatment of patients whose Protime is prolonged for other reasons. INR results are increased when heparin levels exceed 1.0 U/mL, which corresponds to an aPTT >125 seconds if the patient is on UFH. Cindy Dawn NP HEMATOLOGY Performing Organization Address City/[facility]/ZIP Co de Phone Number [facility] SENDOUT [address] Z[phone] [place], [place] [id number] * (ABNORMAL) BUN (12/29/2023 4:53 PM CDT) BUN 27(H) 8 - 23 mg/dL 12/29/2023 5:26 PM CDT [facility] Blood BLOOD SPECIMEN / Unknown Venipuncture / Unknown 12/29/2023 4:53 PM CDT 12/29/2023 5:06 PM CDT Nathaniel Alvarez MD CHEMISTRY [facility] SENDOUT INTERNAL ZIP [address] [place] [id number] * CT VENOGRAM PELVIS W (12/29/2023 4:39 PM CDT) Anatomical Region Laterality Modality Pelvis Computed Tomogra phy 12/29/2023 4:39 PM CDT Impressions 12/29/2023 5:38 PM CDT 1. 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 Extensive DVT in the left common, internal, and external iliac veins as well as the common femoral vein. Narrative 12/29/2023 5:38 PM CDT For Patients: As a result of the Cures Act, medical imaging exams and procedure reports are released immediately into your electronic medical record. You may view this report before your referring provider. If you have questions, please contact your health care provider. EXAM: CT VENOGRAM PELVIS W LOCATION: [facility] DATE: 12/29/2023 INDICATION: Extensive lower extremity DVT, extending into the iliac veins, based on ultrasound performed earlier today COMPARISON: Venous duplex performed 12/29/2023 TECHNIQUE: CT scan of the pelvis was performed with IV contrast. Multiplanar reformats were obtained. Dose reduction techniques were used. CONTRAST: Omnipaque [id number] FINDINGS: The peripheral IVC is patent. The right common iliac, external iliac, and common femoral veins are patent as is the imaged portion of the femoral vein. There is significant narrowing and compression of the central left common iliac vein near its origin. The location and configuration of the central left common iliac vein is suggestive of underlying May Thurner. Thrombus noted within the common iliac, internal iliac, external iliac, and common femoral veins. NONVASCULAR FINDINGS: Extensive edema in the left thigh and hip. Imaged portions of the liver is unremarkable. Bladder is normal. Uterine calcifications are likely secondary to degenerating leiomyoma. Visualized bowel loops are normal in caliber. Right renal cysts noted, require no further dedicated imaging follow-up. Imaged portion of the left kidney is unremarkable. MUSCULOSKELETAL: No suspicious lytic or blastic lesions. There is a fat- containing ventral hernia that was not completely included in the [id number]. Procedure Note Lorena Villanueva MD - 12/29/2023 For Patients: As a result of the Cures Act, medical imagingexams and procedure reports are released immediately into your electronicmedical record. You may view this report before your referring provider.If you have questions, please contact your health care provider. EXAM: CT VENOGRAM PELVIS W LOCATION: [facility] DATE: 12/29/2023 INDICATION: Extensive lower extremity DVT, extending into the iliac veins,based on ultrasound performed earlier today COMPARISON: Venous duplex performed 12/29/2023 TECHNIQUE: CT scan of the pelvis was performed with IV contrast.Multiplanar reformats were obtained. Dose reduction techniques wereused. CONTRAST: Omnipaque [id number] FINDINGS: The peripheral IVC is patent. The right common iliac, external iliac, and common femoral veins arepatent as is the imaged portion of the femoral vein. There is significant narrowing and compression of the central left commoniliac vein near its origin. The location and configuration of the centralleft common iliac vein is suggestive of underlying May Thurner. Thrombusnoted within the common iliac, internal iliac, external iliac, and commonfemoral veins. NONVASCULAR FINDINGS: Extensive edema in the left thigh and hip. Imaged portions of the liver is unremarkable. Bladder is normal. Uterinecalcifications are likely secondary to degenerating leiomyoma. Visualizedbowel loops are normal in caliber. Right renal cysts noted, require nofurther dedicated imaging follow-up. Imaged portion of the left kidney isunremarkable. MUSCULOSKELETAL: No suspicious lytic or blastic lesions. There is afat- containing ventral hernia that was not completely included in [id number]. IMPRESSION: 1. 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 Extensive DVT in the left common, internal, andexternal iliac veins as well as the common femoral vein. Cindy Dawn NP CT * XR ABDOMEN 2 VIEW FLAT AND UPRIGHT OR DECUBITUS (12/29/2023 2:49 PM CDT) Anatomical Region Laterality Modality Abdomen Computed Radiogr aphy 12/29/2023 2:49 PM CDT Impressions 12/29/2023 2:53 PM CDT Moderate degenerative change lower lumbar spine. Mild degenerative change bilateral hips. Excreted contrast in the ureters and bladder. Sternotomy and mediastinal clips. Atelectasis or scarring left lung base. Scattered gas in the colon in a nonobstructive pattern. Normal amount of stool in the colon. Narrative 12/29/2023 2:53 PM CDT For Patients: As a result of the Century Cures Act, medical imaging exams and procedure reports are released immediately into your electronic medical record. You may view this report before your referring provider. If you have questions, please contact your health care provider. EXAM: XR ABDOMEN 2 VIEW FLAT AND UPRIGHT OR DECUBITUS LOCATION: [facility] DATE: 12/29/2023 INDICATION: Abnormal bowel function COMPARISON: None. Procedure Note Mart Irwin MD - 12/29/2023 For Patients: As a result of the Cures Act, medical imagingexams and procedure reports are released immediately into your electronicmedical record. You may view this report before your referring provider.If you have questions, please contact your health care provider. EXAM: XR ABDOMEN 2 VIEW FLAT AND UPRIGHT OR DECUBITUS LOCATION: [facility] DATE: 12/29/2023 INDICATION: Abnormal bowel function COMPARISON: None. IMPRESSION: Moderate degenerative change lower lumbar spine. Mild degenerative changebilateral hips. Excreted contrast in the ureters and bladder. Sternotomyand mediastinal clips. Atelectasis or scarring left lung base. Scatteredgas in the colon in a nonobstructive pattern. Normal amount of stool inthe colon. Warren Mosqueda MD GENERAL IM AGING * US VENOUS LOWER EXTREMITY LEFT (12/29/2023 12:23 PM CDT) Anatomical Region Laterality Modality LEGS, LEG L, Abdomen Ultrasound 12/29/2023 12:2 3 PM CDT Impressions 12/29/2023 12:33 PM CDT 1. ??Extensive iliofemoral DVT with involvement of the greater saphenous vein as well. Recommend consultation with interventional radiology for possible intervention given location and extent. CT of the abdomen and pelvis may be beneficial to evaluate for any pelvic adenopathy and assess the extent of thrombus. Critical Result: Iliofemoral DVT Finding was identified on 12/29/2023 12:26 PM CDT. Patient's nurse Sania was contacted by me on 12/29/2023 12:31 PM CDT and verbalized understanding of the critical result. Narrative 12/29/2023 12:33 PM CDT For Patients: As a result of the Cures Act, medical imaging exams and procedure reports are released immediately into your electronic medical record. You may view this report before your referring provider. If you have questions, please contact your health care provider. EXAM: US VENOUS LOWER EXTREMITY LEFT LOCATION: [facility] DATE: 12/29/2023 INDICATION: Swelling COMPARISON: None. TECHNIQUE: Venous Duplex ultrasound of the left lower extremity with and without compression, augmentation and duplex. Color flow and spectral Doppler with waveform analysis performed. FINDINGS: Exam includes the common femoral, femoral, popliteal, and contralateral common femoral veins as well as segmentally visualized deep calf veins and greater saphenous vein. LEFT: There is noncompressible thrombus in the visualized iliac and common femoral veins with flow present in the visualized IVC. Thrombus continues in the greater saphenous vein and is present throughout the thigh and popliteal region into the ankle. No popliteal cyst. Procedure Note Ming Madrigal MD - 12/29/2023 For Patients: As a result of the Cures Act, medical imagingexams and procedure reports are released immediately into your electronicmedical record. You may view this report before your referring provider.If you have questions, please contact your health care provider. EXAM: US VENOUS LOWER EXTREMITY LEFT LOCATION: [facility] DATE: 12/29/2023 INDICATION: Swelling COMPARISON: None. TECHNIQUE: Venous Duplex ultrasound of the left lower extremity with andwithout compression, augmentation and duplex. Color flow and spectralDoppler with waveform analysis performed. FINDINGS: Exam includes the common femoral, femoral, popliteal, andcontralateral common femoral veins as well as segmentally visualized deepcalf veins and greater saphenous vein. LEFT: There is noncompressible thrombus in the visualized iliac and commonfemoral veins with flow present in the visualized IVC. Thrombus continuesin the greater saphenous vein and is present throughout the thigh andpopliteal region into the ankle. No popliteal cyst. IMPRESSION: 1. Extensive iliofemoral DVT with involvement of the greater saphenousvein as well. Recommend consultation with interventional radiology forpossible intervention given location and extent. CT of the abdomen andpelvis may be beneficial to evaluate for any pelvic adenopathy and assessthe extent of thrombus. Critical Result: Iliofemoral DVT Finding was identified on 12/29/2023 12:26 PM CDT. Patient's nurse Sania was contacted by me on 12/29/2023 12:31 PM CDT andverbalized understanding of the critical result. Rene MOJICA US * 12 Lead EKG (12/29/2023 8:44 AM CDT) Pathologist [facility] [place] Interpretation Atrial tachycardia versus atrial flutter with 2:[address] & T wave abnormality Abnormal ECG BEYOND NOW Ventricular Rate 110 BPM BEYOND NOW Atrial Rate 110 BPM BEYOND NOW P-R Interval 152 ms BEYOND NOW QRS Duration 98 ms BEYOND NOW QT 358 ms BEYOND NOW QTc 484 ms BEYOND NOW P [place] 265 degrees BEYOND NOW R [place] 78 degrees BEYOND NOW T [place] 236 degrees BEYOND NOW 12/29/2023 8:44 AM CDT 12/29/2023 6:00 PM CDT Rene MOJICA EKG ORD BEYOND NOW [place], [place] * (ABNORMAL) CBC W PLT NO DIFF (12/29/2023 2:13 AM CDT) Pathologist [facility] [place] WHITE BLOOD COUNT 16.0(H) 4.5 - 11.0 thou/cu mm 12/29/2023 2:21 AM CDT [facility] RED BLOOD COUNT 3.53(L) 4.00 - 5.20 mil/cu mm 12/29/2023 2:21 AM CDT [facility] HEMOGLOBIN 11.0(L) 12.0 - 16.0 g/dL 12/29/2023 2:21 AM CDT [facility] HEMATOCRIT 32.1(L) 33.0 - 51.0 % 12/29/2023 2:21 AM CDT [facility] MCV 91 80 - 100 fL 12/29/2023 2:21 AM CDT [facility] MCH 31.2 26.0 - 34.0 pg 12/29/2023 2:21 AM CDT [facility] MCHC 34.3 32.0 - 36.0 g/dL 12/29/2023 2:21 AM CDT [facility] RDW 13.2 11.5 - 15.5 % 12/29/2023 2:21 AM CDT [facility] PLATELET COUNT 172 140 - 440 thou/cu mm 12/29/2023 2:21 AM CDT [facility] MPV 8.8 6.5 - 11.0 fL 12/29/2023 2:21 AM CDT [facility] NRBC 0.0 % 12/29/2023 2:21 AM CDT [facility] ABS NRBC 0.0 thou /cu mm 12/29/2023 2:21 AM CDT [facility] Blood BLOOD SPECIMEN / Unknown Venipuncture / Unknown 12/29/2023 2:13 AM CDT 12/29/2023 2:17 AM CDT Rene MOJICA HEMATOL OGY [facility] SENDOUT [place] [id number] [place] [address] * SCAN-BONE DENSITOMETRY DEXA (09/14/2018 12:00 AM CDT) Anatomical Region Laterality Modality Other Scanner OTHER from Last 3 Months or Most Recently Relevant to Health Maintenance Advance Directives * DNR (Latest Code Status on File) Date Activated Date Inactivated Comments 12/30/2023 3:45 PM 01/01/2024 7:20 PM Question Answer Comments Code Status Discussion: Reviewed Preferences * Full Code Date Activated Date Inactivated Comments 12/29/2023 12:59 AM 12/30/2023 3:45 PM Question Answer Comments Code Status Discussion: Reviewed Preferences Care Teams Histology Specialist Relationship Specialty Start Date End Date Saba Lakhani MD [address] [place] [address] PCP - General Internal Medicine 12/29/23 [facility] [address] [place] [address] 01/01/24
== END 2023-12-28 23:20 | disposition home or self-care (01) ==
LOC: AMB 01-03 14:11
PROVIDERS: PCP Internal Medicine; Visit Provider Family Medicine
DX: K46.0 Unspecified abdominal hernia with obstruction, without gangrene (principal); R22.42 Localized swelling, mass and lump, left lower limb; J98.4 Other disorders of lung
CPT/HCPCS: A0425; A0429

== ENCOUNTER 2024-01-05 13:48 | Outpatient (CLI) | payer MEDICARE, SELFPAY ==
--- OUTSIDE RECORDS SUMMARY | 2024-01-05 13:56 | XMS_ITS | Clinical Summary ---
Author Organization [employer] [facility] s [facility] Address [place], [place] [address] Care Team Providers [employer] Member Name Role Phone Saba Lakhani MD Primary Care Provider [phone] [facility] [place] Unavailable [phone] Allergies Active Allergy Reactions Criticality Noted Date [...] Care Team Description 01/02/2024 Home Care Visit [facility] [address] [place] [address] Babita Mejia RN CARE COORDINATION 12/29/2023 12:56 AM CDT - 01/01/2024 5:15 PM CDT Hospital Encounter [facility] [address] [place] [address] s, Hospitalist [facility] Rene Puvris MBBS Loc, Nathaniel Wasserman MD DVT, lower [...] - 36 sec 01/01/2024 7:[address] [facility] Blood BLOOD SPECIMEN / Unknown Venipuncture / Unknown 01/01/2024 6:42 AM CDT 01/01/2024 7:08 AM CDT [facility] - 01/01/2024 7:27 AM CDT Therapeutic Range: 59-89 seconds Ntahaniel Alvarez MD HEMATOLOGY Performing Organization Address [facility] Phone Number [facility] SENDOUT INTERNAL ZIP [phone] [place] [phone] * PLATELET COUNT (01/01/2024 6:41 AM CDT) Only the most recent of4 resultswithin the time period is included. PLATELET COUNT 197 140 - 440 thou/cu mm 01/01/2024 7:[address] [facility] MPV 9.1 6.5 - 11.0 fL 01/01/2024 7:[address] [facility] Blood BLOOD SPECIMEN / Unknown Venipuncture / Unknown 01/01/2024 6:41 AM CDT 01/01/2024 7:08 AM CDT [facility] - 01/01/2024 7:15 AM CDT Every morning while on IV heparin. Every morning while on IV heparin. Necessary every morning while on IV heparin. Nathaniel Alvarez MD HEMATOLOGY Performing Organization Address [facility]/ZIP Co de Phone Number [facility] SENDOUT INTERNAL ZIP [phone] [place] [address] * (ABNORMAL) HEMOGLOBIN (01/01/2024 6:41 AM CDT) Only the most recent of4 resultswithin the time period is included. HEMOGLOBIN 9.6(L) 12.0 - 16.0 g/dL 01/01/2024 7:[address] [facility] MCV 93 80 - 100 fL 01/01/2024 7:[address] [facility] Blood BLOOD SPECIMEN / Unknown Venipuncture / Unknown 01/01/2024 6:41 AM CDT 01/01/2024 7:08 AM CDT [facility] - 01/01/2024 7:15 AM CDT Every morning while on IV heparin. Every morning while on IV heparin. Necessary every morning while on IV heparin. Nathaniel Alvarez MD HEMATOLOGY [facility] SENDOUT INTERNAL ZIP [phone] [place] [address] * (ABNORMAL) HEMATOCRIT (01/01/2024 6:41 AM CDT) Only the most recent of4 resultswithin the time period is included. Pathologist [facility] HEMATOCRIT 29.4(L) 33.0 - 51.0 % 01/01/2024 7:[address] [facility] Blood BLOOD SPECIMEN / Unknown Venipuncture / Unknown 01/01/2024 6:41 AM CDT 01/01/2024 7:08 AM CDT [facility] - 01/01/2024 7:15 AM CDT Every morning while on IV heparin. Every morning while on IV heparin. Necessary every morning while on IV heparin. Nathaniel Alvarez MD HEMATOLOGY [facility] SENDOUT INTERNAL ZIP [phone] [place] [address] * (ABNORMAL) SODIUM (01/01/2024 6:41 AM CDT) Pathologist [facility] SODIUM 133(L) 136 - 145 mmol/L 01/01/2024 7:[address] [facility] Blood BLOOD SPECIMEN / Unknown Venipuncture / Unknown 01/01/2024 6:41 AM CDT 01/01/2024 7:08 AM CDT Nathaniel Alvarez MD CHEMISTRY [facility] SENDOUT INTERNAL ZIP [phone] [place] [address] * (ABNORMAL) POTASSIUM (01/01/2024 6:41 AM CDT) POTASSIUM 3.1(L) 3.5 - 5.1 mmol/L 01/01/2024 7:[address] [facility] Blood BLOOD SPECIMEN / Unknown Venipuncture / Unknown 01/01/2024 6:41 AM CDT 01/01/2024 7:08 AM CDT Nathaniel Alvarez MD CHEMISTRY Performing Organization Address [facility]/ZIP Co de Phone Number [facility] SENDOUT INTERNAL ZIP [phone] [place] [address] * (ABNORMAL) CREATININE (01/01/2024 6:41 AM CDT) Only the most recent of2 resultswithin the time period is included. eGFR 70(L) >90 mL/min/1.7 3m2 01/01/2024 7:[address] [facility] Comment:As of 2021, eG FR is calculated by the CKD-EPI creatinine equation without race adjustment. ??eGFR can be influenced by muscle mass, exercise, and diet. ??The reported eGFR is an estimation only and is only applicable if the renal function is stable. CREATININE 0.84 0.50 - 0.90 mg/dL 01/01/2024 7:[address] [facility] Blood BLOOD SPECIMEN / Unknown Venipuncture / Unknown 01/01/2024 6:41 AM CDT 01/01/2024 7:08 AM CDT Nathaniel Alvarez MD CHEMISTRY [facility] SENDOUT INTERNAL ZIP [phone] [place] [address] * CLOSTRIDIOIDES DIFFICILE TOXIN PCR (12/31/2023 9:00 PM CDT) Pathologist [facility] CLOSTRIDIUM DIFFICILE PCR Negative 12/31/2023 11:[address] [facility] PRESUMPTIVE NAP1 STRAIN Negative 12/31/2023 11:[address] [facility] Stool STOOL SPECIMEN / Unknown Non-Blood / Unknown 12/31/2023 9:00 PM CDT 12/31/2023 10:22 PM CDT [facility] - 12/31/2023 11:11 PM CDT The NAP1 (027 or BI) strain is a hypervirulent strain. Detection may be useful for epidemiological purposes. Nathaniel Alvarez MD MICROBIOLOGY [facility] SENDOUT INTERNAL ZIP [phone] [place] [address] * (ABNORMAL) BASIC METABOLIC PANEL (12/31/2023 9:13 AM CDT) Only the most recent of3 resultswithin the time period is included. Pathologist [facility] SODIUM 134(L) 136 - 145 mmol/L 12/31/2023 9:43 AM [facility] POTASSIUM 3.3(L) 3.5 - 5.1 mmol/L 12/31/2023 9:43 AM [facility] CHLORIDE 101 98 - 107 mmol/L 12/31/2023 9:43 AM [facility] CO2,TOTAL 22 22 - 29 mmol/L 12/31/2023 9:43 AM [facility] ANION GAP 11 5 - 18 12/31/2023 9:43 AM [facility] GLUCOSE 79 70 - 99 mg/dL 12/31/2023 9:43 AM [facility] CALCIUM 8.2(L) 8.8 - 10.2 mg/dL 12/31/2023 9:43 AM [facility] BUN 21 8 - 23 mg/dL 12/31/2023 9:43 AM [facility] CREATININE 1.01(H) 0.50 - 0.90 mg/dL 12/31/2023 9:43 AM [facility] BUN/CREAT RATIO 21(H) 10 - 20 9:43 AM [facility] eGFR 56(L) >90 mL/min/1.7 3m2 12/31/2023 9:[address] [facility] Comment:As of 2021, eG FR is calculated by the CKD-EPI creatinine equation without race adjustment. ??eGFR can be influenced by muscle mass, exercise, and diet. ??The reported eGFR is an estimation only and is only applicable if the renal function is stable. Blood BLOOD SPECIMEN / Unknown Venipuncture / Unknown 12/31/2023 9:13 AM CDT 12/31/2023 9:20 AM CDT Nathaniel Alvarez MD CHEMISTRY [facility] SENDOUT INTERNAL ZIP [phone] [place] [address] * IR VENOGRAM LOWER EXTREMITY LEFT (12/30/2023 [...] questions, please contact your health care provider. [facility] EXAM: IR VENOGRAM LOWER EXTREMITY LEFT LEFT LOWER EXTREMITY VENOGRAM WITH CLOT TRIEVER MECHANICAL THROMBECTOMY AND ANGIOPLASTY WITH STENTING LOCATION: [facility] CLINICAL HISTORY: Left lower extremity [...] observer. The physician spent 45 minutes of [id number]-[id number] moderate sedation time with the patient. ADDITIONAL [...] by placement of a 16 [place] ClotTriever sheath. A Kumpe catheter was advanced [...] common iliac artery The completion venogram demonstrates jew of antegrade flow in the femoral and [...] questions, please contact your health care provider. [facility] EXAM: IR VENOGRAM LOWER EXTREMITY LEFT LEFT LOWER EXTREMITY VENOGRAM WITH CLOT TRIEVER MECHANICAL THROMBECTOMYAND ANGIOPLASTY WITH STENTING LOCATION: [facility] CLINICAL HISTORY: Left lower extremity [...] trained observer. The physicianspent 45 minutes of [id number] moderate sedation time with thepatient. ADDITIONAL MEDICATIONS: [...] by placement of a 16 [place] ClotTrieversheath. A Kumpe catheter was advanced through [...] iliac vein. Images were stored to the [facility]. A 16 mm by 6 cm Abre [...] rightcommon iliac artery The completion venogram demonstrates jew of antegrade flow in thefemoral and iliac [...] CTV pelvis in one month. Cindy Dawn ROLL [employer] STITCHER HAND IR * WHITE BLOOD COUNT (12/30/2023 7:48 AM CDT) WHITE BLOOD COUNT 10.5 4.5 - 11.0 thou/cu mm 12/30/2023 8:[address] [facility] NRBC 0.0 % 12/30/2023 8:[address] [facility] ABS NRBC 0.0 thou /cu mm 12/30/2023 8:[address] [facility] Blood BLOOD SPECIMEN / Unknown Venipuncture / Unknown 12/30/2023 7:48 AM CDT 12/30/2023 8:[address] [facility] - 12/30/2023 8:43 AM CDT Every morning while on IV heparin. Every morning while on IV heparin. Necessary every morning while on IV heparin. Nathaniel Alvarez MD HEMATOLOGY [facility] SENDOUT INTERNAL [facility] [id number] [address] [place] [address] * (ABNORMAL) Protime INR (12/30/2023 7:48 AM CDT) Only the most recent of2 resultswithin the time period is included. INR 1.3(H) <1.3 12/30/2023 9:[address] [facility] PROTIME 15.2(H) 10.6 - 12.4 sec 12/30/2023 9:[address] [facility] Blood BLOOD SPECIMEN / Unknown Venipuncture / Unknown 12/30/2023 7:48 AM CDT 12/30/2023 8:[address] [facility] - 12/30/2023 9:00 AM CDT ?Therapeutic [...] Cindy Dawn NP HEMATOLOGY Performing Organization Address City/[facility]/ZIP Co de Phone Number [facility] SENDOUT INTERNAL ZIP [phone] [place], [place] [id number] * (ABNORMAL) BUN (12/29/2023 4:53 PM CDT) BUN 27(H) 8 - 23 mg/dL 12/29/2023 5:[address] [facility] Blood BLOOD SPECIMEN / Unknown Venipuncture / Unknown 12/29/2023 4:53 PM CDT 12/29/2023 5:06 PM CDT Nathaniel Alvarez MD CHEMISTRY [facility] SENDOUT INTERNAL ZIP [phone] [place] [address] * CT VENOGRAM PELVIS W (12/29/2023 4:39 [...] provider. EXAM: CT VENOGRAM PELVIS W LOCATION: [facility] DATE: 12/29/2023 INDICATION: Extensive lower [...] that was not completely included in the [id number]. Procedure Note Lorena Villanueva MD - 12/29/2023 For Patients: As a result of the Cures Act, medical imagingexams and procedure reports are released immediately into your electronicmedical record. You may view this report before your referring provider.If you have questions, please contact your health care provider. EXAM: CT VENOGRAM PELVIS W LOCATION: [facility] DATE: 12/29/2023 INDICATION: Extensive lower [...] hernia that was not completely included in [id number]. IMPRESSION: 1. Stenosis and compression of the [...] EXAM: US VENOUS LOWER EXTREMITY LEFT LOCATION: [facility] DATE: 12/29/2023 INDICATION: Swelling COMPARISON: [...] EXAM: US VENOUS LOWER EXTREMITY LEFT LOCATION: [facility] DATE: 12/29/2023 INDICATION: Swelling COMPARISON: [...] Lead EKG (12/29/2023 8:44 AM CDT) Pathologist [facility] Interpretation Atrial tachycardia versus atrial flutter with 2:[address] & T wave abnormality Abnormal ECG BEYOND NOW Ventricular Rate 110 BPM BEYOND NOW Atrial Rate 110 BPM BEYOND NOW P-R Interval 152 ms BEYOND NOW QRS Duration 98 ms BEYOND NOW QT 358 ms BEYOND NOW QTc 484 ms BEYOND NOW P [place] 265 degrees BEYOND NOW R [place] 78 degrees BEYOND NOW T [place] 236 degrees BEYOND NOW 12/29/2023 8:44 AM CDT 12/29/2023 6:00 PM CDT Rene MOJICA EKG ORD BEYOND NOW [place], [place] * (ABNORMAL) CBC W PLT NO DIFF (12/29/2023 2:13 AM CDT) Pathologist [facility] WHITE BLOOD COUNT 16.0(H) 4.5 - 11.0 thou/cu mm 12/29/2023 2:[address] [facility] RED BLOOD COUNT 3.53(L) 4.00 - 5.20 mil/cu mm 12/29/2023 2:[address] [facility] HEMOGLOBIN 11.0(L) 12.0 - 16.0 g/dL 12/29/2023 2:[address] [facility] HEMATOCRIT 32.1(L) 33.0 - 51.0 % 12/29/2023 2:[address] [facility] MCV 91 80 - 100 fL 12/29/2023 2:[address] [facility] MCH 31.2 26.0 - 34.0 pg 12/29/2023 2:[address] [facility] MCHC 34.3 32.0 - 36.0 g/dL 12/29/2023 2:[address] [facility] RDW 13.2 11.5 - 15.5 % 12/29/2023 2:[address] [facility] PLATELET COUNT 172 140 - 440 thou/cu mm 12/29/2023 2:[address] [facility] MPV 8.8 6.5 - 11.0 fL 12/29/2023 2:[address] [facility] NRBC 0.0 % 12/29/2023 2:[address] [facility] ABS NRBC 0.0 thou /cu mm 12/29/2023 2:[address] [facility] Blood BLOOD SPECIMEN / Unknown Venipuncture / Unknown 12/29/2023 2:13 AM CDT 12/29/2023 2:17 AM CDT Rene MOJICA HEMATOL OGY [facility] SENDOUT INTERNAL ZIP [phone] [place] [address] * SCAN-BONE DENSITOMETRY DEXA (09/14/2018 12:00 AM [...] Code Status Discussion: Reviewed Preferences Care Teams [employer] Member Relationship Specialty Start Date End Date Saba Lakhani MD [address] [place] [address] PCP - General Internal Medicine 12/29/23 [facility] [address] [place] [address] 01/01/24
== END 2024-01-05 13:49 | disposition home or self-care (01) ==
LOC: NFLDREF 13:50
PROVIDERS: PCP Internal Medicine; Visit Provider Family Medicine
DX: E87.1 Hypo-osmolality and hyponatremia (principal); D64.9 Anemia, unspecified; R63.4 Abnormal weight loss; R73.03 Prediabetes; I10 Essential (primary) hypertension
CPT/HCPCS: 80048

== ENCOUNTER 2024-01-12 11:39 | Outpatient (CLI) | payer MEDICARE, SELFPAY ==
--- OUTSIDE RECORDS SUMMARY | 2024-01-12 11:43 | XMS_ITS | Clinical Summary ---
Author Organization [employer] [facility] Address [place], [place] [address] Care Team Providers Care Director Of Search Engine Optimization Name Role Phone Saba Lakhani MD Primary Care Provider [phone] [facility], Ralph Unavailable [phone] Allergies Active Allergy Reactions Criticality Noted Date [...] Encounters Date Type Department Care Team Description 01/09/2024 Home Care Visit [facility] [address] [place] [address] Jose Baker, PT CARE COORDINATION 01/02/2024 Home Care Visit [facility] [address] [place] [address] Babita Mejia, RN CARE COORDINATION 12/29/2023 12:56 AM CDT - 01/01/2024 5:15 PM CDT Hospital Encounter [facility] [address] [place] [address] s, U Hospitalist [facility] Rene Purvis MBBS [facility], Nathaniel Wasserman MD DVT, lower extremity, proximal, [...] 0 04/17/2020 Social Connections Answer Date Recorded Do you often feel lonely or isolated from those around you? 0 12/29/2023 Financial Resource Strain Answer Date R ecorded Difficulty of Paying Living Expenses 3 12/29/2023 Difficulty of Paying Living Expenses Not on file 12/29/2023 Food Insecurity Answer Date Recorded Do you worry your food will run out before you are able to buy more? 1 12/29/2023 Transportation Needs Answer Date Record ed Does lack of transportation keep you from medica l appointments? 1 12/29/2023 Does lack of transportation keep you from work, meetings or getting things that you need? 1 12/29/2023 Housing Stability Answer Date Recorded [...] - 36 sec 01/01/2024 7:27 AM CDT [facility] Blood BLOOD SPECIMEN / Unknown Venipuncture / Unknown 01/01/2024 6:42 AM CDT 01/01/2024 7:08 AM CDT [facility] - 01/01/2024 7:27 AM CDT Therapeutic Range: 59-89 seconds Nathaniel Alvarez MD HEMATOLOGY [facility] SENDOUT [place]IP [phone] [place] [address] * PLATELET COUNT (01/01/2024 6:41 AM CDT) Only the most recent of4 resultswithin the time period is included. PLATELET COUNT 197 140 - 440 thou/cu mm 01/01/2024 7:15 AM CDT [facility] MPV 9.1 6.5 - 11.0 fL 01/01/2024 7:15 AM CDT [facility] Blood BLOOD SPECIMEN / Unknown Venipuncture / Unknown 01/01/2024 6:41 AM CDT 01/01/2024 7:08 AM CDT [facility] - 01/01/2024 7:15 AM CDT Every morning while on IV heparin. Every morning while on IV heparin. Necessary every morning while on IV heparin. Nathaniel Alvarez MD HEMATOLOGY [facility] [address] [address] [address] [address] [place] [address] * (ABNORMAL) HEMOGLOBIN (01/01/2024 6:41 AM CDT) Only the most recent of4 resultswithin the time period is included. HEMOGLOBIN 9.6(L) 12.0 - 16.0 g/dL 01/01/2024 7:15 AM CDT [facility] MCV 93 80 - 100 fL 01/01/2024 7:15 AM CDT [facility] Blood BLOOD SPECIMEN / Unknown Venipuncture / Unknown 01/01/2024 6:41 AM CDT 01/01/2024 7:08 AM CDT [facility] - 01/01/2024 7:15 AM CDT Every morning while on IV heparin. Every morning while on IV heparin. Necessary every morning while on IV heparin. Nathaniel Alvarez MD HEMATOLOGY Performing Organization Address [facility]/ZIP Co de Phone Number [facility] SENDOUT [place] [phone] [place] [address] * (ABNORMAL) HEMATOCRIT (01/01/2024 6:41 AM CDT) Only the most recent of4 resultswithin the time period is included. HEMATOCRIT 29.4(L) 33.0 - 51.0 % 01/01/2024 7:15 AM CDT [facility] Blood BLOOD SPECIMEN / Unknown Venipuncture / Unknown 01/01/2024 6:41 AM CDT 01/01/2024 7:08 AM CDT [facility] - 01/01/2024 7:15 AM CDT Every morning while on IV heparin. Every morning while on IV heparin. Necessary every morning while on IV heparin. Nathaniel Alvarez MD HEMATOLOGY [facility] [address]OUT [place] [address] [phone] [place] [address] * (ABNORMAL) SODIUM (01/01/2024 6:41 AM CDT) SODIUM 133(L) 136 - 145 mmol/L 01/01/2024 7:33 AM CDT [facility] Blood BLOOD SPECIMEN / Unknown Venipuncture / Unknown 01/01/2024 6:41 AM CDT 01/01/2024 7:08 AM CDT Nathaniel Alvarez MD CHEMISTRY [facility] SENDOUT [place] ZIP [address] [place] [address] * (ABNORMAL) POTASSIUM (01/01/2024 6:41 AM CDT) POTASSIUM 3.1(L) 3.5 - 5.1 mmol/L 01/01/2024 7:33 AM CDT [facility] Blood BLOOD SPECIMEN / Unknown Venipuncture / Unknown 01/01/2024 6:41 AM CDT 01/01/2024 7:08 AM CDT Nathaniel Alvarez MD CHEMISTRY Performing Organization Address City/[facility]/ZIP Co de Phone Number [facility] SENDOUT INTERNAL ZIP [phone] [place] [phone] * (ABNORMAL) CREATININE (01/01/2024 6:41 AM CDT) Only the most recent of2 resultswithin the time period is included. eGFR 70(L) >90 mL/min/1.7 3m2 01/01/2024 7:33 AM CDT [facility] Comment:As of 2021, eG FR is calculated by the CKD-EPI creatinine equation without race adjustment. ??eGFR can be influenced by muscle mass, exercise, and diet. ??The reported eGFR is an estimation only and is only applicable if the renal function is stable. CREATININE 0.84 0.50 - 0.90 mg/dL 01/01/2024 7:33 AM CDT [facility] Blood BLOOD SPECIMEN / Unknown Venipuncture / Unknown 01/01/2024 6:41 AM CDT 01/01/2024 7:08 AM CDT Nathaniel Alvarez MD CHEMISTRY [facility] SENDOUT [place] [address]IP [address] [address] [place] [address] * CLOSTRIDIOIDES DIFFICILE TOXIN PCR (12/31/2023 9:00 PM CDT) [facility] CLOSTRIDIUM DIFFICILE PCR Negative 12/31/2023 11:11 PM CDT [facility] PRESUMPTIVE NAP1 STRAIN Negative 12/31/2023 11:11 PM CDT [facility] Stool STOOL SPECIMEN / Unknown Non-Blood / Unknown 12/31/2023 9:00 PM CDT 12/31/2023 10:22 PM CDT Narrative [facility] - 12/31/2023 11:11 PM CDT The NAP1 (027 or BI) strain is a hypervirulent strain. Detection may be useful for epidemiological purposes. Nathaniel Alvarez MD MICROBIOLOGY Performing Organization Address [facility] Co de Phone Number [facility] SENDOUT [place] ZIP [phone] [place] [address] * (ABNORMAL) BASIC METABOLIC PANEL (12/31/2023 9:13 AM CDT) Only the most recent of3 resultswithin the time period is included. Pathologist [facility] SODIUM 134(L) 136 - 145 mmol/L 12/31/2023 9:43 AM CDT [facility] POTASSIUM 3.3(L) 3.5 - 5.1 mmol/L 12/31/2023 9:43 AM CDT [facility] CHLORIDE 101 98 - 107 mmol/L 12/31/2023 9:43 AM CDT [facility] CO2,TOTAL 22 22 - 29 mmol/L 12/31/2023 9:43 AM CDT [facility] ANION GAP 11 5 - 18 12/31/2023 9:43 AM CDT [facility] GLUCOSE 79 70 - 99 mg/dL 12/31/2023 9:43 AM CDT [facility] CALCIUM 8.2(L) 8.8 - 10.2 mg/dL 12/31/2023 9:43 AM CDT [facility] BUN 21 8 - 23 mg/dL 12/31/2023 9:43 AM CDT [facility] CREATININE 1.01(H) 0.50 - 0.90 mg/dL 12/31/2023 9:43 AM CDT [facility] BUN/CREAT RATIO 21(H) 10 - 20 9:43 AM CDT [facility] eGFR 56(L) >90 mL/min/1.7 3m2 12/31/2023 9:43 AM CDT [facility] Comment:As of 2021, eG FR [...] 9:20 AM CDT Nathaniel Alvarez MD CHEMISTRY Performing Organization Address City/State/[facility] Co de Phone Number [facility] SENDOUT [place]NAL ZIP [phone] [place] [address] * IR VENOGRAM LOWER EXTREMITY LEFT (12/30/2023 [...] questions, please contact your health care provider. [facility] EXAM: IR VENOGRAM LOWER EXTREMITY LEFT LEFT LOWER EXTREMITY VENOGRAM WITH CLOT TRIEVER MECHANICAL THROMBECTOMY AND ANGIOPLASTY WITH STENTING LOCATION: [facility] CLINICAL HISTORY: Left lower [...] observer. The physician spent 45 minutes of [id number] moderate sedation time with the patient. ADDITIONAL [...] system, followed by placement of a 16 [place] ClotTriever sheath. A Kumpe catheter was advanced [...] common iliac artery The completion venogram demonstrates lutheran of antegrade flow in the femoral and iliac ??veins, and no significant residual thrombus or stenosis. The iliac stent is widely patent and in good position. Procedure Note Bassem Stauffer MD - 12/30/2023 For Patients: As a result of the Century Cures Act, medical imagingexams and procedure reports are released immediately into your electronicmedical record. You may view this report before your referring provider.If you have questions, please contact your health care provider. [facility] EXAM: IR VENOGRAM LOWER EXTREMITY LEFT LEFT LOWER EXTREMITY VENOGRAM WITH CLOT TRIEVER MECHANICAL THROMBECTOMYAND ANGIOPLASTY WITH STENTING LOCATION: [facility] CLINICAL HISTORY: Left lower [...] trained observer. The physicianspent 45 minutes of [id number] moderate sedation time with thepatient. ADDITIONAL MEDICATIONS: [...] system, followed by placement of a 16 [place] ClotTrieversheath. A Kumpe catheter was advanced through [...] iliac vein. [facility]. A 16 mm by 6 cm Abre [...] rightcommon iliac artery The completion venogram demonstrates lutheran of antegrade flow in thefemoral and iliac [...] CTV pelvis in one month. Cindy Dawn INVENTORY CONTROLLER IR * WHITE BLOOD COUNT (12/30/2023 7:48 AM CDT) WHITE BLOOD COUNT 10.5 4.5 - 11.0 thou/cu mm 12/30/2023 8:43 AM CDT [facility] NRBC 0.0 % 12/30/2023 8:43 AM CDT [facility] ABS NRBC 0.0 thou /cu mm 12/30/2023 8:43 AM CDT [facility] Blood BLOOD SPECIMEN / Unknown Venipuncture / Unknown 12/30/2023 7:48 AM CDT 12/30/2023 8:35 AM CDT [facility] - 12/30/2023 8:43 AM CDT Every morning while on IV heparin. Every morning while on IV heparin. Necessary every morning while on IV heparin. Nathaniel Alvarez MD HEMATOLOGY [facility] SENDOUT INTERNAL ZIP [phone] [place] [address] * (ABNORMAL) Protime INR (12/30/2023 7:48 AM CDT) Only the most recent of2 resultswithin the time period is included. INR 1.3(H) <1.3 12/30/2023 9:00 AM CDT [facility] PROTIME 15.2(H) 10.6 - 12.4 sec 12/30/2023 9:00 AM CDT [facility] Blood BLOOD SPECIMEN / Unknown Venipuncture / Unknown 12/30/2023 7:48 AM CDT 12/30/2023 8:35 AM CDT Narrative [facility] - 12/30/2023 9:00 AM CDT [...] is on UFH. Cindy Dawn NP HEMATOLOGY [facility] SENDOUT [place]NAL ZIP [phone] [place] [address] * (ABNORMAL) BUN (12/29/2023 4:53 PM CDT) BUN 27(H) 8 - 23 mg/dL 12/29/2023 5:26 PM CDT [facility] Blood BLOOD SPECIMEN / Unknown Venipuncture / Unknown 12/29/2023 4:53 PM CDT 12/29/2023 5:06 PM CDT Nathaniel Alvarez MD CHEMISTRY [facility] SENDOUT [place] ZIP [phone] [place] [address] * CT VENOGRAM PELVIS W (12/29/2023 4:39 [...] provider. EXAM: CT VENOGRAM PELVIS W LOCATION: [facility] DATE: 12/29/2023 INDICATION: Extensive [...] that was not completely included in the [id number]. Procedure Note Lorena Villanueva MD - 12/29/2023 For Patients: As a result of the Cures Act, medical imagingexams and procedure reports are released immediately into your electronicmedical record. You may view this report before your referring provider.If you have questions, please contact your health care provider. EXAM: CT VENOGRAM PELVIS W LOCATION: [facility] DATE: 12/29/2023 INDICATION: Extensive [...] hernia that was not completely included in [id number]. IMPRESSION: 1. Stenosis and compression of the [...] VIEW FLAT AND UPRIGHT OR DECUBITUS LOCATION: [facility] DATE: 12/29/2023 INDICATION: Abnormal bowel [...] EXAM: US VENOUS LOWER EXTREMITY LEFT LOCATION: [facility] DATE: 12/29/2023 INDICATION: Swelling [...] EXAM: US VENOUS LOWER EXTREMITY LEFT LOCATION: [facility] DATE: 12/29/2023 INDICATION: Swelling [...] Lead EKG (12/29/2023 8:44 AM CDT) Pathologist [facility] Interpretation Atrial tachycardia versus atrial flutter with 2:[address] & T wave abnormality Abnormal ECG BEYOND NOW Ventricular Rate 110 BPM BEYOND NOW Atrial Rate 110 BPM BEYOND NOW P-R Interval 152 ms BEYOND NOW QRS Duration 98 ms BEYOND NOW QT 358 ms BEYOND NOW QTc 484 ms BEYOND NOW P [place] 265 degrees BEYOND NOW R [place] 78 degrees BEYOND NOW T [place] 236 degrees BEYOND NOW 12/29/2023 8:44 AM CDT 12/29/2023 6:00 PM CDT Rene MOJICA EKG ORD BEYOND NOW [place], [place] * (ABNORMAL) CBC W PLT NO DIFF (12/29/2023 2:13 AM CDT) Pathologist [facility] WHITE BLOOD COUNT 16.0(H) 4.5 - 11.0 thou/cu mm 12/29/2023 2:21 AM CDT [facility] RED BLOOD COUNT 3.53(L) 4.00 - 5.20 mil/cu mm 12/29/2023 2:21 AM CDT [facility] HEMOGLOBIN 11.0(L) 12.0 - 16.0 g/dL 12/29/2023 2:21 AM CDT [facility] HEMATOCRIT 32.1(L) 33.0 - 51.0 % 12/29/2023 2:21 AM CDT [facility] MCV 91 80 - 100 fL 12/29/2023 2:21 AM CDT [facility] MCH 31.2 26.0 - 34.0 pg 12/29/2023 2:21 AM CDT [facility] MCHC 34.3 32.0 - 36.0 g/dL 12/29/2023 2:21 AM CDT [facility] RDW 13.2 11.5 - 15.5 % 12/29/2023 2:21 AM CDT [facility] PLATELET COUNT 172 140 - 440 thou/cu mm 12/29/2023 2:21 AM CDT [facility] MPV 8.8 6.5 - 11.0 fL 12/29/2023 2:21 AM CDT [facility] NRBC 0.0 % 12/29/2023 2:21 AM CDT [facility] ABS NRBC 0.0 thou /cu mm 12/29/2023 2:21 AM CDT [facility] Blood BLOOD SPECIMEN / Unknown Venipuncture / Unknown 12/29/2023 2:13 AM CDT 12/29/2023 2:17 AM CDT Rene MOJICA HEMATOL OGY [facility] SENDOUT INTERNAL ZIP [address] [place] [address] * SCAN-BONE DENSITOMETRY DEXA (09/14/2018 12:00 AM [...] Code Status Discussion: Reviewed Preferences Care Teams Director Of Search Engine Optimization Relationship Specialty Start Date End Date Saba Lakhani MD [address] [place] [id number] PCP - General Internal Medicine 12/29/23 [facility] [address] [place] [address] 01/01/24
== END 2024-01-12 11:40 | disposition home or self-care (01) ==
PROVIDERS: PCP Internal Medicine; Visit Provider Internal Medicine
DX: I10 Essential (primary) hypertension (principal); R73.03 Prediabetes; E78.5 Hyperlipidemia, unspecified; D51.9 Vitamin B12 deficiency anemia, unspecified
CPT/HCPCS: 80061; 82607

== ENCOUNTER 2025-01-17 10:08 | Outpatient (CLI) | payer MEDICARE, SELFPAY | END 2025-01-17 10:09 | disposition home or self-care (01) | PROVIDERS: PCP Internal Medicine; Visit Provider Internal Medicine | DX: D51.9 Vitamin B12 deficiency anemia, unspecified (principal); E78.5 Hyperlipidemia, unspecified | CPT/HCPCS: 80053; 80061; 82607 ==